=== PATIENT | male | born 1940 | race Caucasian/White ===

== ENCOUNTER → 2016-09-30 | Day surgery (SDC) | payer BC, OTHER ==
[~2016-09-30] VITALS: Ht 177.8 cm; Wt 100.0 kg
[~2016-09-30] MED LIST: ASPI-435; COEN1CAP7; FENTANYL CITRATE INJ 50 MCG/1 ML 2 ML VIAL ONE; GARL400T4; MAGN400T6 PO; MIDAZOLAM HCL 1 MG/ML 2ML VIAL ONE; MULT-506 PO
[2016-09-30 07:23] VITALS: BP 150/88; PULSE 69; TEMP 36.6; O2SAT 97; Ht 177.8 cm; Wt 100.0 kg
--- NOTE | 2016-09-30 09:17 | History & Physical Bridge Note ---
H&P Re-Evaluation Bridge Note: I have examined the patient, reviewed the History & Physical and in the interval since the performance of the History & Physical I have noted the following changes of clinical significance: No changes noted
[2016-09-30 09:23] LABS: ISTAT ARTERIAL BLOOD GAS HCO3 26 meq/L (19-24); ISTAT ARTERIAL BLOOD GAS PCO2 46 mmHg (35-46); ISTAT ARTERIAL BLOOD GAS PO2 34 mmHg (80-95); ISTAT ARTERIAL BLOOD GAS pH 7.36 (7.35-7.45); ISTAT CARBON DIOXIDE 27 mEq/l (24-31)
[2016-09-30 09:23] LABS: ISTAT ARTERIAL BLOOD GAS HCO3 25 meq/L (19-24); ISTAT ARTERIAL BLOOD GAS PCO2 42 mmHg (35-46); ISTAT ARTERIAL BLOOD GAS PO2 76 mmHg (80-95); ISTAT ARTERIAL BLOOD GAS pH 7.37 (7.35-7.45); ISTAT CARBON DIOXIDE 26 mEq/l (24-31)
--- NOTE | 2016-09-30 09:29 | Cardiac Catheterization ---
Procedure Note Procedure Date Sep 30, 2016. Pre-Procedure Diagnosis Valvular Disease AUC Score 9 Post-Procedure Diagnosis Normal Coronary Arteries Procedure(s) Performed Coronary Angiography, Left Heart Cath, Right Heart Cath, LV Angiography, Aortography Business Intelligence Engineer Dr. Auguste Crystal Mounter(s) None Estimated Blood Loss None Medication(s) Versed, Lidocaine 1% Summary of Findings Severe Aortic Stenosis Aortic valve area 0.59-0.78 CM2 Aortic valve index0.27-0.36 CM2/M2 Mean aortic valve gradient 52 mmHg Hemodynamics Rest Ao: 127/67 Final Ao: 129/72 LV: 190/24 RA: 16 RV: 39/15 PA: 35/20 PW: 19 Recommendations valve replacement Specimens None Radiation Exposure (mGy) 548 Contrast (mls) 139 Fluids (cc crystalloids) 150 Procedural Complication(s) None Disposition Jumpbasting Facing Baster Holding/Recovery ACC Data Cardiac Status Clinical evaluation leading to the procedure CAD Presntation: No Sxs, no angina Anginal Classification: No symptoms Heart Failure: No Cardiogenic Shock w/in 24Hrs: No Cardiac Arrest w/in 24Hrs: No Imaging studies past 6 months: Yes Stress studies past 6 months: No Coronary Anatomy Dominant: Right Left Main (% Stenosis): Normal LAD (% Stenosis): Normal Circumflex (% Stenosis): Normal RCA (% Stenosis): Normal Left Ventricular Angiography EF (%): 60 Mitral Regurgitation: None Aortography Aortic Regurgitation: None Diagnostic Physician's Name: Critsopher Auguste, DO Status: Elective Closure Device Percutaneous Entry Location: Femoral Closure Device: Mynx Recommendations: valve replacement
--- NOTE | 2016-09-30 09:30 | Procedure Note ---
Pre-Mod Sedation Assessment General Date of Moderate Sedation: Sep 30, 2016. Start: 8:22 AM Vital Signs: Vital Signs Past 12 Hours Date Time Temp Pulse Resp B/P (MAP) Pulse Ox O2 Delivery O2 Flow Rate FiO2 09/30/16 09:15 66 18 136/79 (98) Mask 09/30/16 09:10 64 18 140/84 (102) Mask 09/30/16 09:05 74 20 145/82 (103) Mask 09/30/16 07:23 36.6 69 18 150/88 97 Room Air Review Cardiovascular: regular rate, rhythm, + systolic murmur Abdomen: normal bowel sounds, non tender, soft Lungs: chest non-tender, lungs clear Airway Class: I Pre-Sedation Airway Assessment Oral Cavity: Dentures Able to Visualize Vocal Cords: No Short Thick Neck: No Hx of Sleep Apnea: Yes Smoking Status: Former Smoker Mallampati Classification: Class I ASA Classification: Class I Procedure Planning Contraindications-for Mod Sed: None Yes Notes The planned sedation has been discussed with the patient and consent obtained. I have identified the patient, determined the appropriateness of sedation and have assessed the patient immediately prior to the procedure. All medicine(s) and interventions are by my order.
--- NOTE | 2016-09-30 09:31 | Procedure Note ---
Post-Mod Sedation Assessment General Date of Moderate Sedation Sep 30, 2016. Finish: 9:05 AM Vital Signs: Vital Signs Past 12 Hours Date Time Temp Pulse Resp B/P (MAP) Pulse Ox O2 Delivery O2 Flow Rate FiO2 09/30/16 09:15 66 18 136/79 (98) Mask 09/30/16 09:10 64 18 140/84 (102) Mask 09/30/16 09:05 74 20 145/82 (103) Mask 09/30/16 07:23 36.6 69 18 150/88 97 Room Air Review - Discharge Criteria Vital Signs Stable: Yes Alert/Oriented/Conversant: Yes Returned to Baseline Mental St: Yes Nausea Absent/Minimal: Yes Pain/Discomfort/Absent/Minimal: Yes Normal/Baseline Respirations: Yes Active Bleeding?: No Pt Received D/C Instructions: Yes Prescriptions Given: None Specific Proced. D/C Criteria Distal Pulses Present (Cardiac: Yes Groin site assessed-Card Cath: Yes Voided Prior To Discharge: Yes Discharged Patients Adult Escort/Transportation: Yes
--- NOTE | 2016-09-30 09:35 | Discharge Instructions ---
Discharge Instructions Procedure Procedure Date: Sep 30, 2016. Reason for Visit: Aortic Stenosis *Dr Auguste To Do*. Discharge Discharge Date: Sep 30, 2016. Discharge Diagnosis: Aortic stenosis Last Recorded Wt (Kilograms): 100 Anesthesia Post Anesthesia Instructions: If you have had General Anesthesia or IV Sedation: * Do not drive today. * Resume driving when surgeon permits. * Do not make important decisions or sign legal documents today. * Call surgeon for: 1. Temperature elevations greater than 101 degrees F. 2. Uncontrollable pain. 3. Excessive bleeding. 4. Persistent nausea and vomiting. 5. Medication intolerance (nausea, vomiting or rash). * For nausea and vomiting use only clear liquids such as: tea, soda, bouillon until nausea subsides, then gradually increase diet as tolerated. * If you have any concerns or questions, call your surgeon's office. If physician is unavailable and it is an emergency, call 911 or go to the nearest emergency room. Instructions Activity Recommendations: limitations Recommended Home Diet: resume previous diet Allergies: Coded Allergies: Olmesartan (Verified Adverse Reaction, Mild, SWEATY & DIZZY, 05/26/13) Provider Instructions ACTIVITY RECOMMENDATIONS: It is common to feel weak and fatigue for a few days. * Do not drive or operate any motorized equipment for the next three days. * Limit stair usage (2 or 3 trips a day only) for the next three days. * Do not lift anything heavier than 10 pounds for the next three days. * Do not engage in vigorous exercise or any sports for the next five days. * You may shower the day after your procedure, but do not immerse the area for three days. Cleanse the site gently with soap and water. SPECIAL CARE INSTRUCTIONS: * You may replace the pressure dressing or band-aid the morning after the procedure. * After your procedure, it is normal to have a small bruise or small lump at the site. Examine your site daily for any change in the bruise or lump, redness, swelling, drainage or numbness. Notify your doctor if any change. BLEEDING: * If there is a small amount of bleeding at the site, lie down and apply firm pressure with a clean cloth for ten minutes. When the bleeding stops, lie quietly keeping the procedure limb straight for six hours. Notify your doctor as soon as possible. * If the bleeding does not stop after ten minutes or if there is a large amount of bleeding or spurting, call 911 immediately. Continue to lie down and hold firm pressure until help arrives. SKIN IRRITATION: * You may experience some redness and/or swelling in the area where radiation was administered. If any skin irritation occurs, please contact your family physician. FOLLOW UP VISIT: Keep any scheduled doctor appointments. Follow Up Follow-up with: Office will call with appointment with Dr. Snyder at [facility] Recommendations: Call your doctor if: * Temperature above 101 degrees * Pain not relieved by pain medicine ordered * There is increased drainage or redness from any incision * You have any unanswered questions or concerns. Your Doctors Instructions noted above were prepared by provider Cristopher Auguste. Patient Signature Section: Patient Instructions Signature Page William Smith Patient (or Guardian) Signature/Date: I have read and understand the instructions given to me by my caregivers. Caregiver/RN/Doctor Signature/Date: The above-named patient and/or guardian has received patient instructions on this date. + Original Patient Signature Page (only) stays with chart. Please make copy for patient.
[2016-09-30 13:00] VITALS: BP 138/74; PULSE 68; O2SAT 98
== END | disposition home or self-care (01) ==
LOC: C.CATH 07:01
PROVIDERS: ATTEND Internal Medicine Interventional Cardiology
DX: I35.0 Nonrheumatic aortic (valve) stenosis (principal); E11.9 Type 2 diabetes mellitus without complications; Z79.82 Long term (current) use of aspirin; Z87.891 Personal history of nicotine dependence

== ENCOUNTER 2018-06-16 05:46 | Inpatient (IN) ==
--- NOTE | 2018-06-09 15:05 | PAT Medication Instructions ---
Medication Instructions Date of Service June 09, 2018 Home Medications aspirin [Aspirin Low Dose] 81 mg PO QAM ibuprofen [Advil] 400 mg PO BID PRN lisinopril 20 mg PO QAM magnesium oxide 400 mg PO DAILY metformin 500 mg PO BI metoprolol tartrate 25 mg PO BID multivitamin 1 tab PO DAILY ASK your surgeon for instructions ibuprofen [Advil] 400 mg PO BID PRN DO NOT take the morning of surgery lisinopril 20 mg PO QAM magnesium oxide 400 mg PO DAILY metformin 500 mg PO BID multivitamin 1 tab PO DAILY Take morning of surgery With a small sip of water, OTHERWISE NOTHING TO EAT OR DRINK AFTER MIDNIGHT: aspirin [Aspirin Low Dose] 81 mg PO QAM metoprolol tartrate 25 mg PO BID Take evening before surgery metformin 500 mg PO BID metoprolol tartrate 25 mg PO BID Other Notes If you have any questions please call us at [phone] or [phone] or [phone] or [phone]
--- NOTE | 2018-06-10 08:56 | Anesthesiology Consultation ---
Date of Service June 10, 2018 Assessment & Plan (1) Encounter for pre-operative examination: Chart Review Chart Review: Acceptable Risk for Surgery and Patient seen in Pre Admission Testing Consults Requested cardiac Note sent from cardiology on 06/08 stating "His echo is acceptable. He has normal systolic function. EF 55-59%. The AVR looks good. Notable findings are moderate LVH and Grade 2 diastolic dysfunction. After surgery he should look to make sure his blood pressure is acceptably controlled; this will likely require a 3rd an tihypertensive agent." This was following his echo. At his visit earlier in the day, he was seen by cardio, who noted " If the patient's resting echocardiogram and pre-admission testing are acceptable I see no overt cardiac contraindications to surgery as planned." Teaching & Discussion Pre-Anesthesia Teaching/Discussion Notes: Instructed NPO after midnight before surgery, except medications with 15 cc of water. Medication instructions provided according to the PAT guidelines. History Surgery Operation Date: 06/22/18 09:35 Proposed Procedures p Haredware Removal L3-S1 (Medicrea), Decompression and Fusion L2-L3 - Dusty Rodriguez DO Height/Weight Height: 5 ft 10 in Weight: 103.6 kg Allergies Allergy/AdvReac Type Severity Reaction Status Date / Time olmesartan AdvReac Mild SWEATY & Verified 05/26/13 10:23 DIZZY Medications Home Medications Medication Instructions Recorded Confirmed Last Taken aspirin [Aspirin Low Dose] 81 mg PO QAM 06/08/18 06/08/18 Unknown ibuprofen [Advil] 400 mg PO BID PRN 06/08/18 06/08/18 Unknown lisinopril 20 mg PO QAM 06/08/18 06/08/18 Unknown magnesium oxide 400 mg PO DAILY 06/08/18 06/08/18 Unknown metformin 500 mg PO BID 06/08/18 06/08/18 Unknown metoprolol tartrate 25 mg PO BID 06/08/18 06/08/18 Unknown multivitamin 1 tab PO DAILY 06/08/18 06/08/18 Unknown Past Medical History Medical History Cardiac murmur H/O Chronic back pain Diabetes mellitus, type 2 NIDDM Hypertension Lumbar herniated disc Osteoarthritis Sleep apnea CURRENTLY NON-COMPLIANT (SINCE SLEEPING UPRIGHT RECENTLY; PRIOR COMPLIANCE WHILE SLEEPING IN BED) Past Family History Family History Brother Family history of diabetes mellitus Sister Family history of diabetes mellitus Father Family history of diabetes mellitus Mother Family history of diabetes mellitus Past Surgical History Surgical History Fusion of spine L3-S1 X2 06/14/13 - MAC #4, ETT #8, Oral, Grade 1 View, * 2 HANDED MASK * History of adenoidectomy History of cardiac cath History of cataract surgery BILATERAL History of colonoscopy History of endoscopic sinus surgery History of esophagogastroduodenoscopy (EGD) History of herniorrhaphy UMBILICAL History of nasal septoplasty History of tonsillectomy S/P AVR (aortic valve replacement) 2016 - [facility] 06/08/18 ECHO - RICKEY 1.2 cm^2, Ao mean 7.6 mmHg Past Anesthesia History No Hx of Anesthesia Complications and No Family Hx of Anesthesia Complications History of PONV No Motion Sickness Screening History of Motion Sickness: No (No, but claustophobic) Social History Smoking Status: Former smoker tobacco type: cigarettes Do You Dip or Chew Tobacco: No Smoking End Date: QUIT 45 YEARS AGO Hx Alcohol Use: Yes Alcohol type: beer alcohol intake frequency: holidays/special occasions only Hx Substance Use: No substance use type: does not use Exercise / Class Metabolic Activity II 4-5 Yardwork/Stairs/Walk up hill (Limited currently due to back pain. 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 Able to climb FOS. Denies CP or SOB. ) Review of Systems Patient denies chest pain, shortness of breath, dyspnea on exertion, reflux, cou gh, wheezing, palpitations. +Joint Pain (Back, Knees) Physical Exam Vital Signs BP: 131/75 P: 66 R: 16 T: 98.2 SPO2: 96% on RA Constitutional + obese ENMT Mouth: + dentures (upper dentures) and + macroglossia Thyromental Distance: > or= 3.5 Finger Breadths (4) Mallampati Class: II Neck normal visual inspection and trachea midline; neck extension not limited Respiratory normal respiratory effort Auscultation: lungs clear to auscultation bilaterally Cardiovascular Rate/Rhythm: regular rate and regular rhythm Heart Sounds: + murmur (2/6) Vessels: no carotid bruit Neurologic moves all extremities Psychiatric Orientation: alert and oriented x 3 Testing Electrocardiogram Date: 06/08/18 Findings: + SB @ (58) When compared with ECG of 10/28/16, Nonspecific T wave abnormality no longer evident in inferior leads Nonspecific T wave abnormality, improved in Lateral leads QT has shortened Chest X-Ray Date: 06/10/18 Findings: + NAD FINDINGS: There are median sternotomy wires. No pneumothorax or pleural effusion is noted. Prosthetic cardiac valve is noted. There is mild cardiomegaly without evidence for pulmonary edema. A moderate-sized hiatal hernia is noted. There is no consolidation. IMPRESSION: 1. No acute cardiopulmonary findings. 2. Mild cardiomegaly without evidence for pulmonary edema. 3. Moderate sized hiatal hernia. Echocardiogram Date: 06/08/18 EF: 55-59% Other Findings: + LVH (moderate concentric) The LV wall thickness is moderately increased (concentric). The left ventricular wall motion is normal. The qualitative LVEF is 55-59% (normal). The left ventricular diastolic function is moderately abnormal (Grade II). There is an aortic valve bioprosthetic present. The aortic valve prosthesis systolic gradients are normal for this type of prosthesis. (RICKEY 1.2 cm^2, Ao mean 7.6 mmHg) Significant aortic valve prosthesis regurgitation is absent. The aortic root diameter is normal. Other Testing CAROTID ARTERY DUPLEX 10/15/16 Right carotid artery duplex examination indicates evidence of less than 50% stenosis of the internal carotid artery. Left carotid artery duplex examination indicates evidence of less than 50% s tenosis of the internal carotid artery. Laboratory Results 06/10/18 09:54 Blood Type A Negative 06/10/18 09:54 Antibody Screen NEGATIVE 06/10/18 09:54 PT 10.8 Seconds (9.0-12.0) 06/10/18 09:54 INR 1.1 (0.9-1.1) 06/10/18 09:54 APTT 26.5 Seconds (21.0-31.0) 06/10/18 09:54 Urine Color Dark Yellow 06/10/18 09:54 Urine Appearance Clear (Clear) 06/10/18 09:54 Urine pH 5.0 (4.5-7.5) 06/10/18 09:54 Ur Specific [place] 1.026 (1.000-1.030) 06/10/18 09:54 Urine Protein Negative (Negative) 06/10/18 09:54 Urine Glucose (UA) Negative (Negative) 06/10/18 09:54 Urine Ketones Trace (Negative) H 06/10/18 09:54 Urine Nitrite Negative (Negative) 06/10/18 09:54 Ur Leukocyte Esterase Negative (Negative) 06/10/18 09:54 [facility] 05/18/18 SODIUM: 139 POTASSIUM: 4.9 CHLORIDE: 97 L CO2: 28 BUN: 30 H CREATININE: 1.1 GLUCOSE: 108 HgBA1C: 7.4 H (Done 04/16/18)
--- NOTE | 2018-06-10 11:00 | XRay Report ---
XR chest Pre-admission PA/Lat CLINICAL HISTORY: Preoperative evaluation. COMPARISON STUDY: Chest radiograph May 26, 2013. FINDINGS: There are median sternotomy wires. No pneumothorax or pleural effusion is noted. Prosthetic cardiac valve is noted. There is mild cardiomegaly without evidence for pulmonary edema. A moderate- sized hiatal hernia is noted. There is no consolidation. IMPRESSION: 1. No acute cardiopulmonary findings. 2. Mild cardiomegaly without evidence for pulmonary edema. 3. Moderate sized hiatal hernia. Electronically signed by: Jamel Enamorado M.D. 06/10/2018 10:58 AM
[2018-06-10 11:17] LABS: Basophils # (auto) 0.02 K/uL (0-0.2); Basophils % (auto) 0.3 %; Eosinophils # (auto) 0.49 K/uL (0-0.5); Eosinophils % (auto) 7.5 %; Hematocrit (blood only) 37.4 % (42-52); Hemoglobin 12.3 g/dL (14.0-18.0); Immature Granulocytes # (auto) 0.02 K/uL (0.00-0.02); Immature Granulocytes % (auto) 0.3 %; Lymphocytes # (auto) 0.73 K/uL (1.2-3.4); Lymphocytes % (auto) 11.1 %; Mean Corpuscular Hgb Conc 32.9 g/dL (32-36); Mean Corpuscular Volume 87.8 fL (80-100); Mean Platelet Volume 10.3 fL (7.4-10.4); Monocytes # (auto) 0.61 K/uL (0.11-0.59); Monocytes % (auto) 9.3 %; Neutrophils # (auto) 4.69 K/uL (1.4-6.5); Neutrophils % (auto) 71.5 %; Platelet Count 244 K/uL (130-400); RDW Coefficient of Variation 14.4 % (11.5-14.5); Red Blood Count 4.26 M/uL (4.7-6.1); White Blood Count 6.56 K/uL (4.8-10.8)
[2018-06-10 11:18] LABS: Appearance Urine Clear (Clear); Bilirubin Urine Negative (Negative); Blood Urine Negative (Negative); Color Urine Dark Yellow; Glucose Urine UA Negative (Negative); Ketones Urine Trace (Negative); Leukocyte Esterase Urine Negative (Negative); Nitrite Urine Negative (Negative); Protein Urine Negative (Negative); Specific Gravity Urine 1.026 (1.000-1.030); Urobilinogen Urine Negative (Negative)
[2018-06-10 11:35] LABS: INR 1.1 (0.9-1.1); Partial Thromboplastin Time 26.5 Seconds (21.0-31.0); Prothrombin Time 10.8 Seconds (9.0-12.0)
[2018-06-16] MEDS ORDERED: CeleBREX 200 MG CAP PO SCH (06:00)
[2018-06-16] MEDS ORDERED: LR 15ML/HR IV SCH (06:00)
[2018-06-16] MEDS ORDERED: GABAPENTIN 300 MG PO SCH (06:00)
[2018-06-16] MEDS ORDERED: CEFAZOLIN 2000MG 2,000 MG/15 ML SYR IV SCH (06:00)
[2018-06-16] MEDS ORDERED: ACETAMINOPHEN 500 MG TAB PO SCH (06:00)
[2018-06-16] MEDS ORDERED: GLYCOPYRROLATE 0.2 MG/ML VIAL ONE (06:44)
[2018-06-16] MEDS ORDERED: NEOSTIGMINE METHYLSULFATE 1 MG/ML 10ML VIAL ONE (06:44)
[2018-06-16] MEDS ORDERED: LIDOCAINE HCL 2% 2 ML VIAL/AMP(20MG/ML) INFIL ONE (06:44)
[2018-06-16] MEDS ORDERED: ROCURONIUM BROMIDE 10 MG/ML 5 ML VIAL ONE ×3 (06:44→09:04)
[2018-06-16] MEDS ORDERED: PROPOFOL IV EMULSION 10 MG/ML 20 ML VIAL IV ONE (06:44)
[2018-06-16] MEDS ORDERED: MIDAZOLAM HCL 1 MG/ML 2ML VIAL ONE (06:44)
[2018-06-16] MEDS ORDERED: ONDANSETRON INJ 2 MG/ML 2 ML VIAL ONE (06:44)
[2018-06-16] MEDS ORDERED: HYDROmorphone INJ 2 MG/ML SYR/VIAL ONE (06:44)
[2018-06-16] MEDS ORDERED: DEXAMETHASONE SOD INJ 4 MG/ML VIAL ONE (06:44)
[2018-06-16] MEDS ORDERED: ACETAMINOPHEN 1000 MG/100 ML IV IV ONE (06:58)
[2018-06-16] MEDS ORDERED: BUPIVACAINE/EPINEPHRINE 0.5% MPF 1:200,000 30 ML VIAL ONE (07:00)
[2018-06-16] MEDS ORDERED: BACITRACIN INJ 50,000 UNIT VIAL ONE (07:01)
[2018-06-16] MEDS ORDERED: LABETALOL HCL IV 5 MG/ML 20ML IV PRN (07:08)
[2018-06-16] MEDS ORDERED: ONDANSETRON INJ 2 MG/ML 2 ML VIAL IV PRN ×2 (07:08→11:55)
[2018-06-16] MEDS ORDERED: ATROPINE SULFATE 0.1 MG/ML 10ML SYR IV PRN (07:08)
--- NOTE | 2018-06-16 07:32 | History & Physical Bridge Note ---
Date of Service June 16, 2018 History & Physical Bridge Note I have examined the patient, reviewed the History & Physical and in the interval since the performance of the History & Physical I have noted the following changes of clinical significance: no changes noted
--- NOTE | 2018-06-16 07:33 | History & Physical Report ---
Date of Service June 16, 2018 Assessment & Plan (1) Spinal stenosis, lumbar region with neurogenic claudication: Hardware removal L3-S1 decompression and fusion L2-3 Present on Admission?: Yes History of Present Illness Chief Complaint: Back and bilateral leg pain Primary Care Provider: Óscar Lloyd DO This is a 78-year-old male who presents with chronic persistent back and bilateral leg pain. After failing extensive course of nonoperative care she is here for surgical intervention. Allergies Allergy/AdvReac Type Severity Reaction Status Date / Time olmesartan AdvReac Mild SWEATY & Verified 06/16/18 05:58 DIZZY Home Medications Home Medications Medication Instructions Recorded Confirmed Type aspirin [Aspirin Low Dose] 81 mg PO QAM 06/08/18 06/16/18 History ibuprofen [Advil] 400 mg PO BID PRN 06/08/18 06/16/18 History lisinopril 20 mg PO QAM 06/08/18 06/16/18 History magnesium oxide 400 mg PO DAILY 06/08/18 06/16/18 History metformin 500 mg PO BID 06/08/18 06/16/18 History metoprolol tartrate 25 mg PO BID 06/08/18 06/16/18 History multivitamin 1 tab PO DAILY 06/08/18 06/16/18 History Past Med/Surg History Social History Preferred Language: Citizen Of [place] Communication Ability: Effective Acid Concentrator Required: No Beliefs That Will Affect Care: None Current Living Situation: Spouse Other Information That Helps Us Care for You: No Feels Safe at Home: Yes Safety Concerns: Feels Safe At This Time Smoking Status: Former smoker Tobacco Type: cigarettes Do You Dip or Chew Tobacco: No Smoking End Date: QUIT 45 YEARS AGO Second Hand Exposure: No Tobacco Cessation Education Requested by Patient: No Hx Alcohol Use: Yes Alcohol type: beer Hx Substance Use: No Physical Exam Vital Signs (Past 24 Hours): Last Vital Signs Temp 36.4 C L 06/16/18 06:04 Pulse 72 06/16/18 06:04 Resp 20 06/16/18 06:04 BP 177/98 H 06/16/18 06:04 Pulse Ox 96 06/16/18 06:04
[2018-06-16] MEDS ORDERED: FLOSEAL HEMOSTATIC MATRIX 10ML TOP ONE (08:46)
--- NOTE | 2018-06-16 10:17 | Fluoroscopy Report ---
FL lumbar spine 2-3V CLINICAL HISTORY: L3-S1 REMOVAL, L2-L3 DECOMPRESSION AND FUSION COMPARISON STUDY: None FLUOROSCOPY TIME: 11 seconds NUMBER OF FLUOROSCOPIC IMAGES: 3 FINDINGS: HISTORY: Hardware removal. L2-L4 laminectomy and fusion. Disc spacer are present at L5-S1, L4-L5, and L2-L3. IMPRESSION: Laminectomy and fusion mid to low lumbar spine. The above report was generated using voice recognition software. It may contain grammatical, syntax or spelling errors. Electronically signed by: Ike Cerda M.D. 06/16/2018 10:16 AM
--- NOTE | 2018-06-16 10:20 | Operative Report ---
Post Operative Report Pre & Post Diagnosis Operation Date: 06/16/18 07:45 Pre-Op Diagnosis: Spinal stenosis, lumbar region with neurogenic claudication Post-Op Diagnosis: Spinal stenosis, lumbar region with neurogenic claudication Procedure Operation Date: 06/16/18 07:45 Actual Procedures #1 removal of posterior segmental instrumentation L3-4 L4-5 L5-S1. #2 expiration of fusion L3-4 L4-5 L5-S1. #3 lumbar decompression with bilateral medial facetectomies foraminotomies L1-L2 3. #4 posterior spinal fusion L2-3. #5 placement posterior segmental instrumentation L2-3 L3-4. #6 interbody fusion L2-3. #7 placement of peek cage 10 x 26 mm L2-3. #8 placement of local autograft in the posterior lateral gutters. #9 placement Feese collagen sponge, mass graft in the posterior lateral gutters and ostial amp and interbody space. Surgeon Dusty Rodriguez, Element Winding Machine Tender None Estimated Blood Loss 300 Findings Consistent with Post-Op Diagnosis Specimens None Indications This is a 78-year-old male well-known to me with severe spinal stenosis L2-3 with herniated nucleus pulposus L2-3. He is failed extensive course of nonoperative care is here for surgical intervention. Description of Procedure Patient was met with preoperatively case discussed all questions addressed.- Patient was taken back to the operative suite. After undergoing general intubation was placed in a prone position Pio table on top of the Ravin frame. All bony prominences well-padded eyes inspected to ensure no external p ressure placed upon but this point the lumbar spine was prepped and draped in normal sterile fashion. Sharp dissection with the assistance of Bovie cautery was performed down to and exposing the lamina and transverse process of L2 and instrumentation at L3-L4-L5 and S1 levels bilaterally. Then proceed remove the hardware bilaterally explore the fusion mass noting to be intact. Then performed a complete laminectomy of L2 partial laminectomy of L1 including bilateral medial facetectomies and foraminotomies to address severe stenosis. Pedicle screws were then placed in L to L3 and L4 bilaterally with assistance of fluoroscopy the process marisela placed. By way of a transforaminal approach and left complete discectomy was performed including removal of all herniated fragments and plates were then curetted to subcortical bleeding bone and a 11 x 26 mm peek cage filled with ostium bone graft tapped into position. The rods were then compressed locked into final position bilaterally. The transverse processes of L2-L3-L4 burred to subcortical bleeding bone. Infuse collagen sponge mass graft local autograft placed in the posterior lateral gutters. 15 round VALENTE drain inserted. Incision was then closed with 1 Vicryl in the fascia 2-0 Vicryl subcutaneous and 4 Monocryl for final closure Steri-Strip sterile dressings placed. Patient will continue to PACU stable disc. I attest to the content of the Intraoperative Record and any orders documented therein. Any exceptions are noted below.
[2018-06-16] MEDS: HYDROmorphone INJ 1 MG/ML SYRINGE IV PRN ×4 (10:45→11:05)
[2018-06-16] MEDS: SODIUM CHLORIDE 0.9% 1000ML 1,000 ML IV SCH ×3 (11:40→23:28)
[2018-06-16] MEDS ORDERED: DO NOT ADMINISTER PNEUMOCOCCAL VACCINE PRN (11:55)
[2018-06-16] MEDS ORDERED: FAMOTIDINE 20 MG TAB PO PRN (11:55)
[2018-06-16] MEDS ORDERED: MAGNESIUM HYDROXIDE SUSP 30 ML UDC PO PRN (11:55)
[2018-06-16] MEDS ORDERED: ALUMINUM/MAGNESIUM SUSP 30 ML UDC PO PRN (11:55)
[2018-06-16] MEDS ORDERED: LORazepam 0.5 MG TAB PO PRN (11:55)
[2018-06-16] MEDS ORDERED: PROMETHAZINE HCL 12.5 MG in SODIUM CHLORIDE 0.9% 50 ML IV PRN (11:55)
[2018-06-16] MEDS ORDERED: METOCLOPRAMIDE HCL INJ 5 MG/ML 2 ML VIAL IV PRN (11:55)
[2018-06-16] MEDS ORDERED: ONDANSETRON 4 MG TAB PO PRN (11:55)
[2018-06-16] MEDS ORDERED: DO NOT ADMINISTER FLU VACCINE PRN (11:55)
[2018-06-16] MEDS ORDERED: HYDROmorphone INJ 0.5 MG/0.5 ML SYR IV PRN (11:55)
[2018-06-16] MEDS ORDERED: BISACODYL 10 MG SUPP PR PRN (11:55)
[2018-06-16] MEDS ORDERED: SOD PHOSPHATE/SOD BIPHOSPHATE ENEMA 132 ML BTL PR PRN (11:55)
[2018-06-16] MEDS ORDERED: LORazepam 0.5 MG/1 ML VIAL IV PRN (11:55)
--- NOTE | 2018-06-16 12:32 | Anesthesiology Progress Note ---
Date of Service June 16, 2018 Anesthesia Post Procedure Vital Signs Vital Signs: Temp Pulse Pulse Pulse Resp BP BP 06/16/18 12:10 68 18 169/94 H 06/16/18 11:40 36.6 C 68 16 177/84 H 06/16/18 11:31 64 11 L 136/68 06/16/18 11:30 61 12 06/16/18 11:26 59 L 7 L 153/90 H 06/16/18 11:25 62 4 L 06/16/18 11:21 60 6 L 130/84 06/16/18 11:20 59 L 5 L 06/16/18 11:16 61 12 132/73 06/16/18 11:15 60 11 L 06/16/18 11:11 58 L 16 163/83 H 06/16/18 11:10 58 L 20 06/16/18 11:07 36.8 C 59 L 19 141/84 H 06/16/18 11:06 58 L 20 141/84 H 06/16/18 11:05 64 16 06/16/18 11:03 60 16 162/76 H 06/16/18 11:00 63 8 L 181/94 H 06/16/18 10:57 61 8 L 146/102 H 06/16/18 10:55 59 L 8 L 06/16/18 10:51 61 19 146/77 H 06/16/18 10:50 62 12 06/16/18 10:46 63 25 H 161/90 H 06/16/18 10:45 65 11 L 06/16/18 10:41 64 19 152/94 H 06/16/18 10:40 59 L 8 L 06/16/18 10:36 64 15 162/91 H 06/16/18 10:35 91 H 25 H 06/16/18 10:31 64 19 153/82 H 06/16/18 10:30 61 15 06/16/18 10:26 65 19 168/91 H 06/16/18 10:25 36.2 C L 72 66 16 168/91 H 06/16/18 06:04 36.4 C L 72 20 177/98 H Pulse Ox 06/16/18 12:10 96 06/16/18 11:40 96 06/16/18 11:31 96 06/16/18 11:30 96 06/16/18 11:26 94 06/16/18 11:25 95 06/16/18 11:21 94 06/16/18 11:20 93 06/16/18 11:16 96 06/16/18 11:15 95 06/16/18 11:11 93 06/16/18 11:10 93 06/16/18 11:07 95 06/16/18 11:06 94 06/16/18 11:05 91 06/16/18 11:03 94 06/16/18 11:00 92 06/16/18 10:57 93 06/16/18 10:55 94 06/16/18 10:51 94 06/16/18 10:50 94 06/16/18 10:46 95 06/16/18 10:45 97 06/16/18 10:41 100 06/16/18 10:40 96 06/16/18 10:36 97 06/16/18 10:35 99 06/16/18 10:31 97 06/16/18 10:30 96 06/16/18 10:26 97 06/16/18 10:25 97 06/16/18 06:04 96 Pain Intensity Back: Pain Intensity: 0 Notes Mental Status: alert / awake / arousable Patient Amnestic to Procedure: Yes Nausea / Vomiting: adequately controlled Pain: adequately controlled Airway Patency, RR, SpO2: stable & adequate BP & HR: stable & adequate Hydration State: stable & adequate Anesthetic Complications: no major complications apparent
[2018-06-16] MEDS ORDERED: GLUCOSE 10 TABS/TUBE PO PRN (12:48)
[2018-06-16] MEDS ORDERED: GLUCAGON FOR INJ 1 MG VIAL SQ PRN (12:48)
[2018-06-16] MEDS ORDERED: DEXTROSE 50% 50 ML SYRINGE IV PRN (12:48)
[2018-06-16] MEDS ORDERED: GLUCOSE 40% GEL 15 GM TUBE PO PRN (12:48)
[2018-06-16] MEDS ORDERED: CARBOHYDRATES FOR HYPOGLYCEMIA PO PRN (12:48)
--- NOTE | 2018-06-16 12:53 | Consultation ---
Date of Consultation June 16, 2018 Assessment & Plan (1) Spinal stenosis, lumbar region with neurogenic claudication: S/P Lumbar decompression Fusion L2-[address] Rodriguez POD #0 EBL 300ml, monitor VALENTE drain output tolerated procedure well Pain/Wound per ortho activity as directed by ortho DVT ppx per ortho monitor cbc for abl anemia (2) Nausea: post operative nausea prn antiemetics (3) Hypertension: blood pressure elevated post operatively monitor continue lisinopril (4) Diabetes mellitus, type 2: A1C 7.4 03/2018 hold metformin lantus/novolog per protocol (5) History of aortic valve replacement: bioprosthetic (6) DVT prophylaxis: SCDS/TEDS per ortho Dispositon: per ortho Follow up: PCP Dr. Lloyd upon discharge Patient was seen and examined in collaboration with Dr. Randolph, please see addendum Starting 06/17/18 patient will be under the care of Dr. Hawley Supervising Physician Co-Signing Physician Notes I have seen and examined the patient and have discussed the case with the provider above. I agree with the assessment and plan as stated with the following exceptions. Pt states that his post-operative nausea has resolved. He was sleeping when I arrived. He denies eating anything yet post-op. He denies any CP, SOB, numbness. He states his pain is "OK." He underwent a redolumbar decompression and fusion by Dr. Rodriguez for lumbar spinal stenosis with neurogenic claudication this morning. Physical exam reveals a WNWD man who is hemodynamically stable and generally well-appearing. Lungs were clear to auscultation bilaterally and he had no respiratory distress. He was notably on 4L oxygen via nasal canula, and is not on home oxygen. He had been weaned during the PACU stay, and I discussed the process with the floor nurse who will continue to wean him now. Oxygen saturation is around 97%-98%. Cardiovascular exam revealed no overt heart murmurs and a reg rhythm with reg rate. Extremities were warm and well perfused and there was no edema. He was oriented to person. As he is a diabetic will continue current plan for insulin as above, holding metformin while hospitalized. Fingersticks ACHS. Per Ortho, ASA has been continued. Metoprolol and lisinopril has been continued perioperatively. DVT prophylaxis includes SCDs until Ortho says OK for chemoprophylaxis. DO Agustín History of Present Illness Requesting Physician: Dr. Rodriguez Reason for Consultation: Postop medical management Attending Physician: Dusty Rodriguez DO History of Present Illness This is a 78-year-old male who has a significant past medical history of [id number] T2DM, HTN, severe aortic stenosis status post bioprosthetic AVR 10/2016, ÁNGEL noncompliant with CPAP, prior history of lumbar surgery who presents to [facility] for elective lumbar procedure by Dr. Rodriguez. Patient has severe spinal stenosis L2-3 with herniated nucleus pulposus L2-3. He has failed conservative management and therefore is here for surgical intervention by Dr. Rodriguez. Postoperatively he is complaining of nausea but no emesis. He denies any fever, chills, sweats, lightheadedness, dizziness, chest pain, palpitations, shortness of breath, cough, abdominal pain. Prior to procedure he denies any change in bowel or urinary habits including melena, hematochezia. and daughter at bedside. Allergies Allergy/AdvReac Type Severity Reaction Status Date / Time olmesartan AdvReac Mild SWEATY & Verified 06/16/18 05:58 DIZZY Home Medications Home Medications Medication Instructions Recorded Confirmed Type aspirin [Aspirin Low Dose] 81 mg PO QAM 06/08/18 06/16/18 History ibuprofen [Advil] 400 mg PO BID PRN 06/08/18 06/16/18 History lisinopril 20 mg PO QAM 06/08/18 06/16/18 History magnesium oxide 400 mg PO DAILY 06/08/18 06/16/18 History metformin 500 mg PO BID 06/08/18 06/16/18 History metoprolol tartrate 25 mg PO BID 06/08/18 06/16/18 History multivitamin 1 tab PO DAILY 06/08/18 06/16/18 History oxycodone 5 mg PO Q4H PRN #30 tab 06/16/18 Rx tramadol 50 mg PO Q4H PRN #30 tab 06/16/18 Rx Patient History Family History Brother Family history of diabetes mellitus Sister Family history of diabetes mellitus Father Family history of diabetes mellitus Mother Family history of diabetes mellitus Social History Preferred Language: Russian Communication Ability: Effective 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 Beliefs That Will Affect Care: None Current Living Situation: Spouse Other Information That Helps Us Care for You: No Feels Safe at Home: Yes Safety Concerns: Feels Safe At This Time Smoking Status: Former smoker Tobacco Type: cigarettes Do You Dip or Chew Tobacco: No Smoking End Date: QUIT 45 YEARS AGO Second Hand Exposure: No Tobacco Cessation Education Requested by Patient: No Hx Alcohol Use: Yes Alcohol type: beer Hx Substance Use: No Review of Systems Review of Systems: All systems reviewed & are unremarkable except as noted in HPI & below Physical Exam Physical Exam: Gen: WD/WN, M, appears stated age, drowsy, NAD, sitting up in bed, answers questions appropriately Head: Normocephalic, Atraumatic Eyes: Sclera normal, no conjunctival injection, PERRLA, EOMI ENT: Gross hearing intact, normal pharynx, mucous membranes moist Neck: supple, no adenopathy, No JVD, no bruit, Resp: Clear to auscultation b/l, no wheeze, rales, rhonchi. Normal insp/exp effort, no accessory muscle use CV: Regular rate, regular rhythm, no murmur, rub, gallop, + ectopy PAC/PVC Abd: Protuberant abdomen, +BS x 4, soft, nontender, nondistended Musculoskeletal: moves extremities active rom x 4, strength intact, good engraver wood strength, lumbar dressing clean dry and intact, VALENTE drain + serosanginous Extremities: No edema bilaterally, SCDs in place Skin: warm, moist, no rash, negative turgor, cap refill < 2sec Neuro: Alert and oriented x 3, speech normal, good mood/affect, cran nerve 2-12 intact grossly : deferred Results & Data Vital Signs (Past 12 Hours) Vital Signs Temp Pulse Pulse Pulse Resp BP BP 06/16/18 12:41 62 18 156/92 H 06/16/18 12:10 68 18 169/94 H 06/16/18 11:40 36.6 C 68 16 177/84 H 06/16/18 11:31 64 11 L 136/68 06/16/18 11:30 61 12 06/16/18 11:26 59 L 7 L 153/90 H 06/16/18 11:25 62 4 L 06/16/18 11:21 60 6 L 130/84 06/16/18 11:20 59 L 5 L 06/16/18 11:16 61 12 132/73 06/16/18 11:15 60 11 L 06/16/18 11:11 58 L 16 163/83 H 06/16/18 11:10 58 L 20 06/16/18 11:07 36.8 C 59 L 19 141/84 H 06/16/18 11:06 58 L 20 141/84 H 06/16/18 11:05 64 16 06/16/18 11:03 60 16 162/76 H 06/16/18 11:00 63 8 L 181/94 H 06/16/18 10:57 61 8 L 146/102 H 06/16/18 10:55 59 L 8 L 06/16/18 10:51 61 19 146/77 H 06/16/18 10:50 62 12 06/16/18 10:46 63 25 H 161/90 H 06/16/18 10:45 65 11 L 06/16/18 10:41 64 19 152/94 H 06/16/18 10:40 59 L 8 L 06/16/18 10:36 64 15 162/91 H 06/16/18 10:35 91 H 25 H 06/16/18 10:31 64 19 153/82 H 06/16/18 10:30 61 15 06/16/18 10:26 65 19 168/91 H 06/16/18 10:25 36.2 C L 72 66 16 168/91 H 06/16/18 06:04 36.4 C L 72 20 177/98 H Pulse Ox 06/16/18 12:41 97 06/16/18 12:10 96 06/16/18 11:40 96 06/16/18 11:31 96 06/16/18 11:30 96 06/16/18 11:26 94 06/16/18 11:25 95 06/16/18 11:21 94 06/16/18 11:20 93 06/16/18 11:16 96 06/16/18 11:15 95 06/16/18 11:11 93 06/16/18 11:10 93 06/16/18 11:07 95 06/16/18 11:06 94 04/24/19 11:05 91 06/16/18 11:03 94 06/16/18 11:00 92 06/16/18 10:57 93 06/16/18 10:55 94 06/16/18 10:51 94 06/16/18 10:50 94 06/16/18 10:46 95 06/16/18 10:45 97 06/16/18 10:41 100 06/16/18 10:40 96 06/16/18 10:36 97 06/16/18 10:35 99 06/16/18 10:31 97 06/16/18 10:30 96 06/16/18 10:26 97 06/16/18 10:25 97 06/16/18 06:04 96 Laboratory Results Preoperative lab work to include hemoglobin 12.3, hematocrit 37.4, platelet 244, INR 1.1 04/16/2018 A1c 7.4 Preoperative echocardiogram revealed EF 55%, bioprosthetic AVR intact, LVH, grade 2 diastolic dysfunction Diagnostic Findings Lumbar Spine Xray: IMPRESSION: Laminectomy and fusion mid to low lumbar spine. CXR: IMPRESSION: 1. No acute cardiopulmonary findings. 2. Mild cardiomegaly without evidence for pulmonary edema. 3. Moderate sized hiatal hernia. Medications Administered Sodium Chloride (Nss 1000ml) 1,000 mls @ 150 mls/hr IV .Q6H40M [facility] Stop: 07/16/18 11:54 Last Admin: 06/16/18 11:40 Dose: 150 mls/hr Documented by: [id number] Discontinued Medications Acetaminophen (Tylenol) 1,000 mg PO PREOP [facility] Stop: 06/16/18 18:00 Last Admin: 06/16/18 06:24 Dose: 1,000 mg Documented by: [id number] Bacitracin (Bacitracin) Confirm Administered Dose 50,000 units .ROUTE .STK-MED ONE Stop: 06/16/18 07:02 Last Admin: 06/16/18 09:51 Dose: 50,000 units Documented by: [id number] Bupivacaine HCl/Epinephrine Bitart (Sensorcaine/Epinephrine 0.5% Mpf 1:200,000) Confirm Administered Dose 30 ml .ROUTE .STK-MED ONE Stop: 06/16/18 07:01 Last Admin: 06/16/18 08:49 Dose: 30 ml Documented by: [id number] Celecoxib (Celebrex) 200 mg PO PREOP [facility] Stop: 06/16/18 18:00 Last Admin: 06/16/18 06:24 Dose: 200 mg Documented by: [id number] Gabapentin (Neurontin) 300 mg PO PREOP [facility] Stop: 06/16/18 18:00 Last Admin: 06/16/18 06:24 Dose: 300 mg Documented by: [id number] Hydromorphone HCl (Dilaudid) 0.25 mg IV Q5M PRN PRN Reason: PACU Use Only-Pain Stop: 06/16/18 12:09 Last Admin: 06/16/18 11:05 Dose: 0.25 mg Documented by: [id number] Admin: 06/16/18 11:00 Dose: 0.25 mg Documented by: [id number] Admin: 06/16/18 10:51 Dose: 0.25 mg Documented by: [id number] Admin: 06/16/18 10:45 Dose: 0.25 mg Documented by: [id number] Lactated Ringer's (Lr) 1,000 mls @ 15 mls/hr IV .Q24H [facility] Stop: 06/17/18 05:59 Last Infusion: 06/16/18 07:41 Dose: 0 mls/hr Documented by: [id number] Admin: 06/16/18 06:15 Dose: 15 mls/hr Documented by: [id number] Cefazolin Sodium (Ancef 2000mg) 2,000 mg in 15 mls @ 3.75 mls/min IV PREOP [facility]; Protocol Stop: 06/16/18 18:00 Last Admin: 06/16/18 07:41 Dose: 3.75 mls/min Documented by: [id number] Miscellaneous (Floseal Hemostatic Matrix 10ml) 10 ml TOP ONCE ONE Stop: 06/16/18 08:47 Last Admin: 06/16/18 09:50 Dose: 28 ml Documented by: [id number]
[2018-06-16] MEDS: KETOROLAC TROMETHAMINE 15 MG/ML VIAL IV SCH ×3 (13:17→23:28)
[2018-06-16] MEDS: CEFAZOLIN 2000MG 2,000 MG/15 ML SYR IV SCH ×2 (15:45→23:26)
[2018-06-16] MEDS ORDERED: ACETAMINOPHEN 1,000 MG/100 ML VIAL IV PRN (16:00)
[2018-06-16] MEDS ORDERED: ACETAMINOPHEN 500 MG TAB PO PRN (16:00)
[2018-06-16] MEDS: INSULIN ASPART 100 UNITS/ML 3 ML PEN SC SCH ×2 (18:44→21:10)
[2018-06-16] MEDS: METOPROLOL TARTRATE 25 MG TAB PO SCH (21:09)
[2018-06-16] MEDS: DOCUSATE SODIUM/SENNA 50/8.6MG TAB PO SCH (21:09)
[2018-06-16] MEDS: INSULIN GLARGINE SOLOSTAR 100 UNITS/ML 3 ML PEN SC SCH (21:10)
[2018-06-17] MEDS: POLYETHYLENE (MIRALAX) 17 GM PACK PO SCH ×4 (05:19→23:49)
[2018-06-17] MEDS: KETOROLAC TROMETHAMINE 15 MG/ML VIAL IV SCH (05:23)
[2018-06-17 06:10] LABS: Basophils # (auto) 0.01 K/uL (0-0.2); Basophils % (auto) 0.1 %; Eosinophils # (auto) 0.01 K/uL (0-0.5); Eosinophils % (auto) 0.1 %; Hematocrit (blood only) 33.1 % (42-52); Immature Granulocytes # (auto) 0.06 K/uL (0.00-0.02); Immature Granulocytes % (auto) 0.4 %; Lymphocytes # (auto) 0.65 K/uL (1.2-3.4); Lymphocytes % (auto) 4.4 %; Mean Corpuscular Hgb Conc 33.2 g/dL (32-36); Mean Corpuscular Volume 87.3 fL (80-100); Mean Platelet Volume 10.4 fL (7.4-10.4); Neutrophils # (auto) 13.27 K/uL (1.4-6.5); Platelet Count 201 K/uL (130-400); RDW Coefficient of Variation 14.6 % (11.5-14.5); Red Blood Count 3.79 M/uL (4.7-6.1)
[2018-06-17 06:46] LABS: BUN Creatinine Ratio 17.4 (10-20); Calcium 8.3 mg/dl (8.5-10.1); Creatinine Clr Calc Pharmacy 75.6 ml/min; Est GFR (African American) 83.4; Est GFR (Non-African American) 71.9; Potassium 4.1 mmol/L (3.5-5.1)
--- NOTE | 2018-06-17 07:53 | Anesthesiology Progress Note ---
Date of Service June 17, 2018 Anesthesia Post Procedure Vital Signs Vital Signs: Temp Pulse Pulse Pulse Pulse Resp BP 06/17/18 06:45 36.8 C 58 L 18 06/17/18 03:46 36.9 C 58 L 14 06/16/18 23:30 36.6 C 67 14 06/16/18 19:16 36.4 C L 72 18 06/16/18 18:04 06/16/18 14:45 36.3 C L 60 18 06/16/18 13:42 63 18 06/16/18 12:41 62 18 06/16/18 12:10 68 18 06/16/18 11:40 36.6 C 68 16 06/16/18 11:31 64 11 L 136/68 06/16/18 11:30 61 12 06/16/18 11:26 59 L 7 L 153/90 H 06/16/18 11:25 62 4 L 06/16/18 11:21 60 6 L 130/84 06/16/18 11:20 59 L 5 L 06/16/18 11:16 61 12 132/73 06/16/18 11:15 60 11 L 06/16/18 11:11 58 L 16 163/83 H 06/16/18 11:10 58 L 20 06/16/18 11:07 36.8 C 59 L 19 06/16/18 11:06 58 L 20 141/84 H 06/16/18 11:05 64 16 06/16/18 11:03 60 16 162/76 H 06/16/18 11:00 63 8 L 181/94 H 06/16/18 10:57 61 8 L 146/102 H 06/16/18 10:55 59 L 8 L 06/16/18 10:51 61 19 146/77 H 06/16/18 10:50 62 12 06/16/18 10:46 63 25 H 161/90 H 06/16/18 10:45 65 11 L 06/16/18 10:41 64 19 152/94 H 06/16/18 10:40 59 L 8 L 06/16/18 10:36 64 15 162/91 H 06/16/18 10:35 91 H 25 H 06/16/18 10:31 64 19 153/82 H 06/16/18 10:30 61 15 06/16/18 10:26 65 19 168/91 H 06/16/18 10:25 36.2 C L 72 66 16 BP BP Pulse Ox 06/17/18 06:45 118/73 94 06/17/18 03:46 135/73 94 06/16/18 23:30 122/71 93 06/16/18 19:16 144/85 H 91 06/16/18 18:04 96 06/16/18 14:45 163/95 H 97 06/16/18 13:42 151/88 H 95 06/16/18 12:41 156/92 H 97 06/16/18 12:10 169/94 H 96 06/16/18 11:40 177/84 H 96 06/16/18 11:31 96 06/16/18 11:30 96 06/16/18 11:26 94 06/16/18 11:25 95 06/16/18 11:21 94 06/16/18 11:20 93 06/16/18 11:16 96 06/16/18 11:15 95 06/16/18 11:11 93 06/16/18 11:10 93 06/16/18 11:07 141/84 H 95 06/16/18 11:06 94 06/16/18 11:05 91 06/16/18 11:03 94 06/16/18 11:00 92 06/16/18 10:57 93 06/16/18 10:55 94 06/16/18 10:51 94 06/16/18 10:50 94 06/16/18 10:46 95 06/16/18 10:45 97 06/16/18 10:41 100 06/16/18 10:40 96 06/16/18 10:36 97 06/16/18 10:35 99 06/16/18 10:31 97 06/16/18 10:30 96 06/16/18 10:26 97 06/16/18 10:25 168/91 H 97 Pain Intensity Back: Pain Intensity: 0 Notes Mental Status: alert / awake / arousable and participated in evaluation Nausea / Vomiting: adequately controlled Pain: adequately controlled Airway Patency, RR, SpO2: stable & adequate BP & HR: stable & adequate Hydration State: stable & adequate
[2018-06-17] MEDS: METOPROLOL TARTRATE 25 MG TAB PO SCH ×2 (08:34→20:43)
[2018-06-17] MEDS: LISINOPRIL 20 MG TAB PO SCH (08:34)
[2018-06-17] MEDS: ASPIRIN 81 MG ECTAB PO SCH (08:35)
[2018-06-17] MEDS: MULTIVITAMIN TAB PO SCH (08:35)
[2018-06-17] MEDS: MAGNESIUM OXIDE 400 MG TAB PO SCH (08:35)
[2018-06-17] MEDS: INSULIN GLARGINE SOLOSTAR 100 UNITS/ML 3 ML PEN SC SCH ×2 (08:37→20:44)
[2018-06-17] MEDS: INSULIN ASPART 100 UNITS/ML 3 ML PEN SC SCH ×4 (08:38→20:45)
--- NOTE | 2018-06-17 09:47 | Hospitalist Progress Note ---
Date of Service June 17, 2018 Assessment & Plan (1) Spinal stenosis, lumbar region with neurogenic claudication: S/P Lumbar decompression Fusion L2-[address] Rodriguez POD #1 EBL 300ml, ERNIE drain output 291 tolerated procedure well Pain/Wound per ortho activity as directed by ortho DVT ppx per ortho monitor cbc for abl anemia (2) Acute blood loss anemia: H/H 11. and 33.1 preop h/h 12.3/37.4 monitor ernie drain output follow cbc (3) Leucocytosis: WBC 14.9k afebrile, no s/sx of infection likely in the setting of post op state monitor (4) Nausea: post operative nausea resolved prn antiemetics (5) Hypertension: blood pressure elevated post operatively monitor continue lisinopril and metoprolol (6) Diabetes mellitus, type 2: A1C 7.4 03/2018 hold metformin lantus/novolog per protocol, will reduce novolog stress, bs controlled 127 (7) History of aortic valve replacement: bioprosthetic (8) DVT prophylaxis: SCDS/TEDS per ortho Dispositon: per ortho Follow up: PCP Dr. Lloyd upon discharge Patient was seen and examined in collaboration with Dr. Hawley, please see addendum Supervising Physician Co-Signing Physician Notes Pt was seen and examined. Agreed with Nicky Zurita exam, assessment and plan. S/P day#1 Lumbar decompression Fusion L2-[address] Rodriguez. Continue incentive spirometry, and pain control. Monitor H/H. PT/NATHANIEL. MD Chandan Subjective Patient was seen and examined in room 312. S/P Lumbar laminectomy and fusion POD #1. He offers no acute concerns. Overall feels well. Denies f/c/s, chest pain, sob, n/v/d. Post op nausea has resolved. Saturating well on room air, denies cough. Pizarro cath still in place. Has not passed flatus yet. Ambulating around room with out difficulty. Denies back pain or radicular symptoms. Review of Systems Review of Systems: As noted per HPI, 10 systems reviewed and negative unless noted above. Physical Exam Physical Exam: Gen: WD/WN, M, sitting in bedside chair, NAD, A&O x3 HEENT: Normocephalic, atraumatic, conjunctivae moist, sclerae anicteric, mucous membranes moist. Lung: Clear to Auscultation bilaterally, no wheezes/rales/rhonchi Heart: Regular rate, regular rhythm, soft 1/6 RHYS noted RUSB, no rubs, or gallops Abdomen: Soft, NT, ND +BS x 4 Extremities: No edema Skin: Warm, no rash, negative turgor. Lumbar dressing CDI, ERNIE drain with serosang drainage + Pizarro with clear yellow urine Results & Data Vital Signs (Past 12 Hours) Vital Signs Temp Pulse Resp BP Pulse Ox 06/17/18 08:41 62 06/17/18 06:45 36.8 C 58 L 18 118/73 94 06/17/18 03:46 36.9 C 58 L 14 135/73 94 06/16/18 23:30 36.6 C 67 14 122/71 93 Laboratory Results Short CBC 06/17/18 Range/Units 05:34 WBC 14.90 H (4.8-10.8) K/uL Hgb 11.0 L (14.0-18.0) g/dL Hct 33.1 L (42-52) % Plt Count 201 (130-400) K/uL BMP 06/17/18 05:34 Sodium 137 Potassium 4.1 Chloride 103 Carbon Dioxide 27 BUN 18 Creatinine 1.01 Glucose 121 H Calcium 8.3 L Medications Administered Aspirin (Ecotrin Ectab) 81 mg PO QAM [facility] Stop: 07/17/18 08:59 Last Admin: 06/17/18 08:35 Dose: 81 mg Documented by: [id number] Insulin Aspart (Novolog Flexpen) 0 units SC ACHS [facility] Stop: 07/16/18 16:29 Last Admin: 06/17/18 08:38 Dose: 5 units Documented by: [id number] Cosigned by: [id number] Admin: 06/16/18 21:10 Dose: 7 units Documented by: [id number] Cosigned by: [id number] Admin: 06/16/18 18:44 Dose: 7 units Documented by: [id number] Cosigned by: [id number] Insulin Glargine (Lantus Solostar Pen) 0 units SC BID [facility]; Protocol Stop: 07/16/18 20:59 Last Admin: 06/17/18 08:37 Dose: 5 units Documented by: [id number] Cosigned by: [id number] Admin: 04/24/19 21:10 Dose: 10 units Documented by: [id number] Cosigned by: [id number] Lisinopril (Zestril) 20 mg PO QAM [facility] Stop: 07/17/18 08:59 Last Admin: 06/17/18 08:34 Dose: 20 mg Documented by: [id number] Magnesium Oxide (Mag-Ox) 400 mg PO DAILY [facility] Stop: 07/17/18 08:59 Last Admin: 06/17/18 08:35 Dose: 400 mg Documented by: [id number] Metoprolol Tartrate (Lopressor) 25 mg PO BID [facility] Stop: 07/16/18 20:59 Last Admin: 06/17/18 08:34 Dose: 25 mg Documented by: [id number] Admin: 06/16/18 21:09 Dose: 25 mg Documented by: [id number] Multivitamins (Multivitamin Tab) 1 tab PO DAILY [facility] Stop: 07/17/18 08:59 Last Admin: 06/17/18 08:35 Dose: 1 tab Documented by: [id number] Polyethylene Glycol (Miralax Powder Packet) 17 gm PO Q6 [facility] Stop: 07/17/18 05:59 Last Admin: 06/17/18 05:19 Dose: Not Given Documented by: [id number] Senna/Docusate Sodium (Senokot S) 2 tab PO HS [facility] Stop: 07/16/18 20:59 Last Admin: 06/16/18 21:09 Dose: 2 tab Documented by: [id number] Discontinued Medications Acetaminophen (Tylenol) 1,000 mg PO PREOP [facility] Stop: 06/16/18 18:00 Last Admin: 06/16/18 06:24 Dose: 1,000 mg Documented by: [id number] Bacitracin (Bacitracin) Confirm Administered Dose 50,000 units .ROUTE .STK-MED ONE Stop: 06/16/18 07:02 Last Admin: 06/16/18 09:51 Dose: 50,000 units Documented by: [id number] Bupivacaine HCl/Epinephrine Bitart (Sensorcaine/Epinephrine 0.5% Mpf 1:200,000) Confirm Administered Dose 30 ml .ROUTE .STK-MED ONE Stop: 06/16/18 07:01 Last Admin: 06/16/18 08:49 Dose: 30 ml Documented by: [id number] Celecoxib (Celebrex) 200 mg PO PREOP [facility] Stop: 06/16/18 18:00 Last Admin: 06/16/18 06:24 Dose: 200 mg Documented by: [id number] Gabapentin (Neurontin) 300 mg PO PREOP [facility] Stop: 06/16/18 18:00 Last Admin: 06/16/18 06:24 Dose: 300 mg Documented by: [id number] Hydromorphone HCl (Dilaudid) 0.25 mg IV Q5M PRN PRN Reason: PACU Use Only-Pain Stop: 06/16/18 12:09 Last Admin: 06/16/18 11:05 Dose: 0.25 mg Documented by: [id number] Admin: 06/16/18 11:00 Dose: 0.25 mg Documented by: [id number] Admin: 06/16/18 10:51 Dose: 0.25 mg Documented by: [id number] Admin: 06/16/18 10:45 Dose: 0.25 mg Documented by: [id number] Lactated Ringer's (Lr) 1,000 mls @ 15 mls/hr IV .Q24H [facility] Stop: 06/17/18 05:59 Last Infusion: 06/16/18 07:41 Dose: 0 mls/hr Documented by: [id number] Admin: 06/16/18 06:15 Dose: 15 mls/hr Documented by: [id number] Cefazolin Sodium (Ancef 2000mg) 2,000 mg in 15 mls @ 3.75 mls/min IV PREOP [facility]; Protocol Stop: 06/16/18 18:00 Last Admin: 06/16/18 07:41 Dose: 3.75 mls/min Documented by: [id number] Cefazolin Sodium (Ancef 2000mg) 2,000 mg in 15 mls @ 3.75 mls/min IV Q8H [facility]; Protocol Stop: 06/17/18 00:03 Last Admin: 06/16/18 23:26 Dose: 3.75 mls/min Documented by: [id number] Admin: 06/16/18 15:45 Dose: 3.75 mls/min Documented by: [id number] Sodium Chloride (Nss 1000ml) 1,000 mls @ 150 mls/hr IV .Q6H40M [facility] Stop: 07/16/18 11:54 Last Infusion: 06/17/18 05:19 Dose: 0 mls/hr Documented by: [id number] Admin: 06/16/18 23:28 Dose: 150 mls/hr Documented by: [id number] Infusion: 06/16/18 23:28 Dose: 150 mls/hr Documented by: [id number] Infusion: 06/16/18 22:07 Dose: 150 mls/hr Documented by: [id number] Admin: 06/16/18 18:10 Dose: 150 mls/hr Documented by: [id number] Infusion: 06/16/18 18:10 Dose: 150 mls/hr Documented by: [id number] Admin: 06/16/18 11:40 Dose: 150 mls/hr Documented by: [id number] Ketorolac Tromethamine (Toradol) 15 mg IV Q6H [facility] Stop: 06/17/18 06:01 Last Admin: 06/17/18 05:23 Dose: 15 mg Documented by: [id number] Admin: 06/16/18 23:28 Dose: 15 mg Documented by: [id number] Admin: 06/16/18 18:10 Dose: 15 mg Documented by: [id number] Admin: 06/16/18 13:17 Dose: 15 mg Documented by: [id number] Miscellaneous (Floseal Hemostatic Matrix 10ml) 10 ml TOP ONCE ONE Stop: 06/16/18 08:47 Last Admin: 06/16/18 09:50 Dose: 28 ml Documented by: [id number] ECG Rate (beats per minute): 58 Rhythm: sinus bradycardia Findings: + PVC
--- NOTE | 2018-06-17 11:47 | Orthopedic Progress Note ---
Date of Service June 17, 2018 Assessment & Plan (1) Spinal stenosis, lumbar region with neurogenic claudication: This time we will continue physical therapy monitor his VALENTE output anticipate discharge home this weekend. Present on Admission?: Yes Subjective Back pain is controlled leg symptoms markedly improved. Physical Exam Physical Exam: On exam patient is in the chair at the bedside. Is good strength testing. Appears comfortable. Results & Data Vital Signs (Past 12 Hours) Vital Signs Temp Pulse Resp BP Pulse Ox 06/17/18 11:11 36.6 C 67 18 148/74 H 94 06/17/18 08:41 62 06/17/18 06:45 36.8 C 58 L 18 118/73 94 06/17/18 03:46 36.9 C 58 L 14 135/73 94
[2018-06-17] MEDS: TRAMADOL HCL 50 MG TABLET PO PRN ×2 (19:00→23:06)
[2018-06-17] MEDS: DOCUSATE SODIUM/SENNA 50/8.6MG TAB PO SCH (20:44)
[2018-06-18] MEDS: TRAMADOL HCL 50 MG TABLET PO PRN (04:06)
[2018-06-18 06:23] LABS: Hematocrit (blood only) 32.2 % (42-52); Hemoglobin 10.9 g/dL (14.0-18.0); Mean Corpuscular Hgb Conc 33.9 g/dL (32-36); Mean Corpuscular Volume 87.3 fL (80-100); Mean Platelet Volume 10.8 fL (7.4-10.4); Platelet Count 193 K/uL (130-400); RDW Coefficient of Variation 14.9 % (11.5-14.5); RDW Standard Deviation 47.3 fL (36.4-46.3); Red Blood Count 3.69 M/uL (4.7-6.1); White Blood Count 10.29 K/uL (4.8-10.8)
[2018-06-18] MEDS: POLYETHYLENE (MIRALAX) 17 GM PACK PO SCH ×3 (06:31→18:25)
[2018-06-18] MEDS: OXYCODONE HCL IR 5 MG TAB (IMMEDIATE RELEASE) PO PRN ×3 (08:00→21:07)
[2018-06-18] MEDS: LISINOPRIL 20 MG TAB PO SCH (08:00)
[2018-06-18] MEDS: MAGNESIUM OXIDE 400 MG TAB PO SCH (08:00)
[2018-06-18] MEDS: ASPIRIN 81 MG ECTAB PO SCH (08:00)
[2018-06-18] MEDS: MULTIVITAMIN TAB PO SCH (08:00)
[2018-06-18] MEDS: METOPROLOL TARTRATE 25 MG TAB PO SCH ×2 (08:00→20:59)
[2018-06-18] MEDS: INSULIN GLARGINE SOLOSTAR 100 UNITS/ML 3 ML PEN SC SCH ×2 (08:04→20:58)
[2018-06-18] MEDS: INSULIN ASPART 100 UNITS/ML 3 ML PEN SC SCH ×4 (08:05→20:57)
--- NOTE | 2018-06-18 10:27 | Hospitalist Progress Note ---
Date of Service June 18, 2018 Assessment & Plan (1) Spinal stenosis, lumbar region with neurogenic claudication: Post op day#2 S/P Lumbar decompression Fusion L2-[address] Rodriguez EBL 300ml, VALENTE drain output Pt reports pain controlled -pain management per ortho -wound management per ortho -PT/OT as appropriate -DVT prophylaxis per ortho -incentive spirometry (2) Acute blood loss anemia: Stable. Hgb: 10.9, was 11 yesterday. Preop Hgb: 12.3. (3) Leucocytosis: Resolved. WBC:10, from 14.9 yesterday. Likely post op afebrile, no signs/symptoms of infection (4) Nausea: Pt initially had post operative nausea which has resolved Pt eating and drinking without difficulty (5) Hypertension: Stable -Monitor BP -Continue lisinopril and metoprolol (6) Diabetes mellitus, type 2: A1C 7.4 03/2018 -Hold metformin while in hospital -Lantus/Novolog per protocol (7) History of aortic valve replacement: Hx Bioprosthetic valve (8) DVT prophylaxis: SCDS/TEDS per ortho Disposition: per ortho Follow up: PCP Dr. Lloyd upon discharge Patient was seen and examined in collaboration with Dr. Hawley, please see addendum Supervising Physician Co-Signing Physician Notes Pt was seen and examined. Agreed with Nicky Zurita exam, assessment and plan. S/P day#2 Lumbar decompression Fusion L2-[address] Rodriguez. Continue incentive spirometry, and pain control. Monitor H/H. PT/OT. MD Chandan Subjective F/U Lumbar laminectomy and fusion. POD #2. Pt seen and examined. Is sitting in bedside chair. Reports pain controlled, having some back pain with movement. Reports has been ambulating in hallway. Denies LE weakness or paresthesias. Has been eating and drinking well. Denies any nausea or vomiting. Is urinating without difficulty. Passing flatus, denies BM yet since surgery. Denies fever/chills, GOTEZ, dizziness, CP, SOB, abdominal pain, extremity edema. Review of Systems Review of Systems: All systems reviewed & are unremarkable except as noted in HPI & below Physical Exam Physical Exam: General: no distress, WDWN Head: normocephalic, atraumatic Eyes: conjunctiva non-injected, anicteric ENT: normal inspection external ears, nose, mucous membranes moist Neck: supple, trachea midline Lungs: clear, no respiratory distress, no wheezing/rhonchi/rales CV: RRR, trace pretibial edema Abd: normal BS, soft, non-tender Back: surgical dressing in place is dry, VALENTE drain intact with serosanguinous drainage Ext: no cyanosis, no calf tenderness, bilateral leg flexion and extension intact, distal pulses intact, sensation to light touch Neuro: A&O x 3, no focal deficits noted, normal affect Skin: warm, dry Results & Data Vital Signs (Past 12 Hours) Vital Signs Temp Pulse Pulse Resp BP BP Pulse Ox 06/18/18 06:40 36.5 C 82 14 143/81 H 06/17/18 23:53 37.2 C 69 14 143/72 H 94 Laboratory Results Short CBC 06/18/18 Range/Units 05:39 WBC 10.29 (4.8-10.8) K/uL Hgb 10.9 L (14.0-18.0) g/dL Hct 32.2 L (42-52) % Plt Count 193 (130-400) K/uL
--- NOTE | 2018-06-18 14:46 | Orthopedic Progress Note ---
Date of Service June 18, 2018 Assessment & Plan (1) Lumbar herniated disc: This time we will continue to monitor his VALENTE output continue with therapy as tolerated. Most likely discharge home tomorrow. Subjective Patient's back pain is controlled leg symptoms markedly improved. Physical Exam Physical Exam: On exam he is in the chair at bedside. Is good strength testing. Appears comfortable. Results & Data Vital Signs (Past 12 Hours) Vital Signs Temp Pulse Pulse Resp BP Pulse Ox 06/18/18 12:00 36.9 C 61 14 144/82 H 94 06/18/18 06:40 36.5 C 82 14 143/81 H
[2018-06-18] MEDS: DOCUSATE SODIUM/SENNA 50/8.6MG TAB PO SCH (20:59)
[2018-06-19] MEDS: POLYETHYLENE (MIRALAX) 17 GM PACK PO SCH ×2 (00:55→05:54)
[2018-06-19] MEDS: OXYCODONE HCL IR 5 MG TAB (IMMEDIATE RELEASE) PO PRN ×2 (05:53→11:47)
[2018-06-19] MEDS: LISINOPRIL 20 MG TAB PO SCH (08:55)
[2018-06-19] MEDS: MULTIVITAMIN TAB PO SCH (08:55)
[2018-06-19] MEDS: METOPROLOL TARTRATE 25 MG TAB PO SCH (08:55)
[2018-06-19] MEDS: ASPIRIN 81 MG ECTAB PO SCH (08:56)
[2018-06-19] MEDS: INSULIN GLARGINE SOLOSTAR 100 UNITS/ML 3 ML PEN SC SCH (08:56)
[2018-06-19] MEDS: MAGNESIUM OXIDE 400 MG TAB PO SCH (08:56)
[2018-06-19] MEDS: INSULIN ASPART 100 UNITS/ML 3 ML PEN SC SCH (08:59)
--- NOTE | 2018-06-19 09:22 | Discharge Summary ---
Date of Service June 19, 2018 Admission HPI Per Admitting Provider This is a 78-year-old male who presents with chronic persistent back and bilateral leg pain. After failing extensive course of nonoperative care she is here for surgical intervention. Principal Diagnosis Lumbar spinal stenosis with neurogenic claudication Discharge Data Allergies Allergy/AdvReac Type Severity Reaction Status Date / Time olmesartan AdvReac Mild SWEATY & Verified 06/16/18 05:58 DIZZY Consultations 06/16/18 11:55 Consult Case Management - Discharge Planning Routine Consult Hospitalist Routine Procedures Performed Operation Date: 06/16/18 07:45 Actual Procedures s L3-L4, L4-L5, L5-S1 Hardware Removal(Not Applicable) - Dusty Rodriguez DO p L2-L3 Decompression and Fusion, L3-L4, L4-L5, L5-S1 Reinstrumentation; Interbody Cage Insertion at L2-L3, Interbody fusion L2-L3; Application of OsteoAMP, and Bone morphagenetic protein(Not Applicable) - Dusty Rodriguez DO Ordered Studies 06/16/18 07:45 FL fluoroscopy <1hr Routine FL lumbar spine 2-3V Routine Hospital Course (1) Spinal stenosis, lumbar region with neurogenic claudication: Patient with lumbar decompression fusion tolerated this well was taken to orthopedic for postoperative. Postop day 1 he was up in a.m. leading nicely. He progressed the postop day #2. VALENTE drain decreasing appropriately. Subsequently discharged home. Discharge orders and instructions found chart for further review. Total Time Total Time Spent Total Time Spent (In Minutes): 20 minutes Discharge Plan Discharge Items Patient Disposition: Home - Self-Care Reason For Visit: Other Intervertebral Disc Displacement, Lumbar Reg Discharge Diagnosis: Lumbar spinal stenosis with neurogenic claudication Discharge Goals: Decrease discomfort Activity: Per 'Additional Instructions' section Non-emergency contact: Primary Care Provider Call non-emergency contact if: you have any medication questions Follow-up/Referrals: Óscar Lloyd DO [Primary Care Provider] - Diet: Regular Addtl Provider Instructions: ACTIVITY RECOMMENDATIONS: SELF CARE INSTRUCTIONS AFTER THORACIC/LUMBAR FUSIONS 1. You may walk to your tolerance. It is good exercise for your legs and back. Expect some back and intermittent leg aches and pains. 2. You may perform "counter-top" level activities (make a sandwich, canelo with a project, etc.). 3. No bending or lifting of more than 10 pounds or back twisting of any nature (roll like a log when turning in bed). 4. You may ride in a car for 20-30 minutes at a time. No driving until after your first visit with your doctor. 5. Frequent changes of position and restricting sitting to 30 minutes at a time will help limit the amount of back spasms and stiffness you may experience. 6. You may discontinue the use of ambulatory aids (cane, crutches, etc.) once your strength and confidence allow. 7. You may lead project engineer the shower and let water strike your incision when you arrive home at least once daily. Do not take a tub bath, sit in a hot tub or go into a swimming pool until after your first recheck in the office. SPECIAL CARE INSTRUCTIONS: VERY IMPORTANT TO READ AND REVIEW A. Your surgical incision has been closed with a cosmetic suture under the skin that will dissolve in about 6 weeks. In 14 days, you can use a pair of clean scissors and cut the suture that is left outside of the skin at the ends of your incision. 1. The small skin tapes can be removed 7 days after surgery if they have not fallen off by that point. 2. You may keep the wound open to air as much as possible to promote healing after post-op day number 5 unless told otherwise by your doctor. 3. If you think the wound looks like it is becoming infected (redness or worsening drainage) and/or you are experiencing fever, chill or worsening back pain and muscle spasms, contact the office so that we may evaluate you as soon as possible. B. Complications are uncommon, but please contact us if you have any signs or symptoms of: 1. wound infection (fever higher than 102.5 degrees F, redness, separation of wound, drainage, or increasing pain from the incision) 2. blood clots in legs (pain, swelling, redness and warmth in legs) 3. urinary tract infection (fever higher than 102.5 degrees F, burning upon urination or increased frequency of urination) 4. nerve problems (inability to walk on your toes or heels, numbness, loss of bowel or bladder control) 5. any other symptoms that concern you C. Please call the office at if you have any concerns or questions about your operation or recovery. D. No smoking! Smoking drastically decreases the chance of a solid fusion. E. Do not take any anti-inflammatory medications (Indocin, Advil, Motrin, Aspirin, Naprosyn, etc.) as these may inhibit the chance of a solid fusion. Tylenol is okay to take for pain. MANAGING PAIN AFTER SPINAL SURGERY 1. Narcotic medication is intended for short-term use and will be provided for surgical pain. Surgical pain usually lasts for a period of 4-6 weeks. Narcotic medication includes Percocet, Vicodin, Darvocet, Tylenol #3 or Lortab. 2. Longer-term pain is more appropriately treated with non-narcotic medication such as Tylenol ES. 3. Muscle spasm is not appropriately treated with narcotics. Muscle relaxers such as Soma, Flexeril or Skelaxin can be used along with Tylenol ES. 4. Remember that we all live with some "aches and pains". This is not unusual or uncommon after an injury or as we get older. a. Back pain is expected and may include muscle spasms for 4 to 6 weeks after surgery. The pain should gradually improve. If the pain worsens for no apparent reason, please contact the office. b. Intermittent leg pain may also be experienced and should not be concerned about unless it worsens for no apparent reason. If so, please contact the office. 5. We will provide appropriate medication within the normal guidelines of their prescribed use. We will also be very cautious and aware of potential abuse and extended duration of patients' medication needs. a. Pain medications are for your comfort and to assist with sleep and rest so that the tissue can heal. They are not provided in order to return to normal activity and should not be used through the day. To do so or worsening pain at night can result from ongoing tissue damage and development of tolerance to the prescribed medicine. 6. Please allow 2-3 days to process refills. Prescriptions will not be mailed but must be picked up at the office. FOLLOW UP VISIT: Keep your scheduled follow-up appointment. Any questions, please call the office at . Prescriptions: New tramadol 50 mg Tablet 50 mg PO Q4H PRN (Reason: Pain, Moderate) Qty: 30 RF: 0 oxycodone 5 mg Tablet 5 mg PO Q4H PRN (Reason: Pain, Severe) Qty: 30 RF: 0 Continued multivitamin Tablet 1 tab PO DAILY RF: 0 metformin 500 mg Tablet 500 mg PO BID RF: 0 lisinopril 20 mg Tablet 20 mg PO QAM RF: 0 aspirin [Aspirin Low Dose] 81 mg Tablet,Delayed Release (Dr/Ec) 81 mg PO QAM RF: 0 metoprolol tartrate 25 mg Tablet 25 mg PO BID RF: 0 magnesium oxide 400 mg Capsule 400 mg PO DAILY RF: 0 ibuprofen [Advil] 200 mg Tablet 400 mg PO BID PRN (Reason: Pain) RF: 0 Stand-Alone Forms: [facility]/Other Patient Handouts: Hypoglycemia Discharge Orders: Discharge Order (Routine); Ordered 06/19/18 Ordered By: Dusty Rodriguez Admission Data Admit Date/Time: 06/16/18 11:48 Attending Provider: Dusty Rodriguez Admit Provider: Dusty Rodriguez Primary Care Provider: Óscar Llyod Other Providers: Ike Howe Wilkerson Service: Surgical Services
== END 2018-06-19 12:24 | disposition home or self-care (01) | DRG 454 ==
LOC: ASU 05:46 → 3E 11:48
DX: Z95.2 Presence of prosthetic heart valve; M48.062 Spinal stenosis, lumbar region with neurogenic claudication; Z91.19 Patient's noncompliance with other medical treatment and regimen; D62 Acute posthemorrhagic anemia; I10 Essential (primary) hypertension; Z87.891 Personal history of nicotine dependence; Z98.1 Arthrodesis status; Z79.82 Long term (current) use of aspirin; Z88.8 Allergy status to other drugs, medicaments and biological substances; Z79.899 Other long term (current) drug therapy; E11.9 Type 2 diabetes mellitus without complications; M51.26 Other intervertebral disc displacement, lumbar region; G47.33 Obstructive sleep apnea (adult) (pediatric); Z79.84 Long term (current) use of oral hypoglycemic drugs; D72.829 Elevated white blood cell count, unspecified; R11.0 Nausea

== ENCOUNTER 2023-06-11 14:42 | Inpatient (IN) ==
[2023-06-11 15:57] LABS: Basophils # (auto) 0.03 K/uL (0.00-0.20); Basophils % (auto) 0.3 %; Eosinophils # (auto) 0.35 K/uL (0.00-0.50); Eosinophils % (auto) 3.7 %; Hematocrit (blood only) 37.7 % (42.0-52.0); Hemoglobin 12.4 g/dl (14.0-18.0); Immature Granulocytes # (auto) 0.02 K/uL (0.01-0.20); Immature Granulocytes % (auto) 0.2 %; Lymphocytes % (auto) 5.3 %; Mean Corpuscular Hemoglobin 27.8 pg (25.0-34.0); Mean Corpuscular Hgb Conc 32.9 g/dL (32.0-36.0); Mean Corpuscular Volume 84.5 fL (80.0-100.0); Mean Platelet Volume 11.1 fL (9.4-12.4); Monocytes # (auto) 0.75 K/uL (0.11-0.59); Monocytes % (auto) 7.9 %; Neutrophils # (auto) 7.81 K/uL (1.40-6.50); Neutrophils % (auto) 82.6 %; Platelet Count 181 K/uL (130-400); RDW Coefficient of Variation 15.9 % (11.5-14.5); RDW Standard Deviation 48.8 fL (36.4-46.3); Red Blood Count 4.46 M/uL (4.70-6.10); White Blood Count 9.46 K/ul (4.8-10.8)
--- NOTE | 2023-06-11 16:09 | XRay Report ---
SINGLE VIEW CHEST CLINICAL HISTORY: Atypical chest pain FINDINGS: An AP, portable, upright chest radiograph is compared to study dated 06/10/2018. The patient is status post midline sternotomy. The heart is enlarged. There is pulmonary vascular congestion. Ch ronic interstitial thickening is similar to previous. There is bibasilar scarring/atelectasis. No air space consolidation or large pleural effusion is identified. No pneumothorax is seen. The skeletal st ructures are osteopenic. The bony thorax is grossly intact. IMPRESSION: Cardiomegaly with mild pulmonary vascular congestion. ACT 112: Negative or not required by law. Electronically signed by: Perry Minor M.D. 06/11/2023 4:08 PM
[2023-06-11 16:14] LABS: Albumin Globulin Ratio 1.6 (0.9-2); Albumin Level 4.5 gm/dl (3.4-5.0); BUN Creatinine Ratio 21.7 (10-20); Bilirubin,Total 0.8 mg/dl (0.2-1.0); Calcium 9.5 mg/dl (8.6-10.3); Creatinine Clr Calc Pharmacy 72.1 ml/min; Est GFR (African American) 95.6 ml/min; Est GFR (Non-African American) 82.5 ml/min; Globulin 2.9 gm/dl (2.5-4.0); Potassium 3.9 mmol/L (3.5-5.1); Total Protein 7.4 gm/dl (6.0-8.3)
[2023-06-11 16:31] LABS: Magnesium 1.7 mg/dl (1.7-2.4)
--- NOTE | 2023-06-11 16:32 | Emergency Department Note ---
Impression & Plan Hypoxia, Atrial fibrillation with rapid ventricular response, CHF (congestive heart failure), SOB (shortness of breath) ED Provider Note NAME: JAMAL PRETTY Jr AGE: 83 SEX: M : 1940 ARRIVES VIA: Walk-In INFORMANT: [Patient][] ED PROVIDER(S): [Perry Guzman MD] CHIEF COMPLAINT: Tachycardia HISTORY OF PRESENT ILLNESS: The patient is an 83-year-old male with a history of A-fib. He is on metoprolol and Eliquis. He recently had his lisinopril increased to 40 mg. He started hydrochlorothiazide for the first time yesterday. He did not take today's dose as he had some appointments. In addition, the patient had been on metoprolol tartrate 25 mg twice a day. Today, he took his first dose of 75 mg of metoprolol succinate. The patient states that he started with a cough 3 days ago. This started after a nuclear stress test and echo was performed. He wonders if the testing had anything to do with how he is feeling. He does not the results of his stress test or echo. The patient went to his doctor's office today, he complained of a productive yellow cough. He was short of breath and may have had a low-grade fever. There, his heart rate was quick, his O2 saturation was in the 80s. He was sent to the hospital for evaluation. PMHx/PSHx/Social Hx: See Below PHYSICAL EXAM: GENERAL: Patient is in no acute distress. HEENT: No acute trauma, normocephalic atraumatic, mucous membranes moist, no nasal congestion. NECK: No stridor, no adenopathy, no meningismus, trachea is midline. LUNGS: Occasional crackles, breath sounds somewhat diminished bilaterally, no respiratory distress. HEART: Subtle systolic murmur, irregular rhythm, mildly tachycardic ABDOMEN: Soft, nontender, no peritonitis. EXTREMITIES: No cyanosis, full range of motion of all the joints without pain or difficulty. Mild bilateral pedal edema. NEUROLOGIC: Oriented x 3, no acute motor or sensory deficits, no focal weakness. SKIN: No jaundice, no diaphoresis. DIFFERENTIAL DIAGNOSIS: Bronchitis or pneumonia, CHF, cardiac ischemia, dysrhythmia, electrolyte imbalance, anemia, among others. EMERGENCY DEPARTMENT PROCEDURES: MEDICAL DECISION MAKING: There is no leukocytosis. A mild anemia was seen, the patient does have a history of anemia looking back at previous testing. There was a normal platelet count. INR slightly high at 1.2, likely from his Eliquis use. There was no renal failure. No concerning electrolyte abnormality. No worrisome liver enzyme elevation. ECG showed what appears to be in atrial fibrillation/atrial flutter. No acute ischemic change. Cardiac enzyme testing x 1 was slightly elevated. This troponin elevation could be secondary to the rapid heart rate or potentially cardiac injury. BNP was elevated consistent with CHF and fluid overload. Chest x-ray does show some CHF. On exam, the patient was tachycardic. Some pedal edema was seen. He was not noted to be hypoxic prior to arrival. He was placed on nasal cannula oxygen. Patient received 12.5 mg of oral metoprolol tartrate. He was given 5 mg of IV Lopressor. He received 20 mg of IV Lasix. The patient is in need of a hospital stay. He is in a rapid A-fib. He appears to be in heart failure. He was noted to be hypoxic prior to his arrival. I spoke with the patient and case management, the on-call hospitalist was consulted. Prior/Outside records/notes reviewed: None ECG per my interpretation: Indication was tachycardia. The ECG shows tachycardia. The rate was 129. There was a right bundle branch block. I suspect atrial flutter given the patient's history and the rate itself. There is no acute ST elevation, no PVCs. The QTc is 509 Continuous Cardiac Monitoring per my interpretation: An order was placed for continuous cardiac monitoring. The monitor shows a rate of 118 with atrial fibrillation. Imaging/x-ray results per my interpretation: Chest x-ray shows some cardiomegaly and what appears to be CHF. There is no focal pneumonia or pneumothorax. Chronic Medical/Social conditions affecting care: Advanced age. Care/Management discussed with: Case management, the on-call hospitalist. Level of care consideration(s): After review of the information above and other included data: --I believe the patient requires escalation of care to admission Critical Care Note: I have personally spent 41 minutes of critical care time in the direct management of this patient. This includes bedside care, interpretation of diagnostic studies, and testing, discussion with consultants, patient, and family members, and other required patient management activities. This 41 minutes is in excess of all separately billable procedures. DISPOSITION: Admission Past Med/Surg History Medical History Osteonecrosis of left hip Lumbar herniated disc Osteoarthritis Chronic back pain Diabetes mellitus, type 2 NIDDM Cardiac murmur H/O Hypertension Sleep apnea Surgical History S/P AVR (aortic valve replacement) 2017 - [facility] 06/08/18 ECHO - RICKEY 1.2 cm^2, Ao mean 7.6 mmHg Fusion of spine L3-S1 X2 06/14/13 - MAC #4, ETT #8, Oral, Grade 1 View, * 2 HANDED MASK * History of herniorrhaphy UMBILICAL History of esophagogastroduodenoscopy (EGD) History of colonoscopy History of nasal septoplasty History of endoscopic sinus surgery History of cataract surgery BILATERAL History of adenoidectomy History of tonsillectomy History of cardiac cath Family History Brother Family history of diabetes mellitus Sister Family history of diabetes mellitus Father Family history of diabetes mellitus Mother Family history of diabetes mellitus Social History Smoking Status: Former smoker Tobacco Type: Cigarettes Smoking End Date: ; Second Hand Exposure: No; Do You Dip or Chew Tobacco: No; Hx Alcohol Use: No Hx Substance Use: No Preferred Language: Faroese Communication Ability: Effective Sandwich Artist Required: No Beliefs That Will Affect Care: None Current Living Situation: Significant Other Other Information That Helps Us Care for You: No Feels Safe at Home: Yes Safety Concerns: Feels Safe At This Time Assistive Devices: CPAP, Denture - Upper and Glasses Assistive Devices Comment: Glasses sent home, upper dentures with patient Allergies Allergies Allergy/AdvReac Type Severity Reaction Status Date / Time olmesartan AdvReac Mild SWEATY & Verified 06/11/23 17:27 DIZZY Home Meds Home Medications Medication Instructions Recorded Confirmed aspirin 81 mg tablet,delayed 81 mg PO QAM 06/08/18 06/11/23 release (Jeny Low Dose Aspirin) ibuprofen 200 mg tablet (Advil) 400 mg PO BID PRN Pain 06/08/18 06/11/23 lisinopril 20 mg tablet 40 mg PO QAM 06/08/18 06/11/23 metformin 500 mg tablet 500 mg PO BID 06/08/18 06/11/23 multivitamin 1 tab PO DAILY 06/08/18 06/11/23 apixaban 5 mg tablet (Eliquis) 5 mg PO BID 06/11/23 06/11/23 cyanocobalamin (vitamin B-12) 1,000 mcg PO DAILY 06/11/23 06/11/23 1,000 mcg tablet (Vitamin B-12) hydrochlorothiazide 25 mg tablet 25 mg PO DAILY 06/11/23 06/11/23 levothyroxine 50 mcg tablet 50 mcg PO DAILY 06/11/23 06/11/23 metoprolol succinate 50 mg 50 mg PO DAILY 06/11/23 06/11/23 tablet,extended release 24 hr pioglitazone 15 mg tablet 15 mg PO QAM 06/11/23 06/11/23 rosuvastatin 10 mg tablet 10 mg PO HS 06/11/23 06/11/23 vit C 250 mg-vit E 90 mg-zinc 40 1 tab PO AMHS 06/11/23 06/11/23 mg-copper 1 [id number] capsule (PreserVision AREDS-2) Results & Data (ED) Vital Signs Vital Signs - 24 hr 06/11/23 15:14 06/11/23 15:14 06/11/23 15:20 Temperature 36.5 C Temperature Source Temporal Artery Scan Pulse Rate 130 H Pulse Rate [Apical] Pulse Rate from SpO2 Sensor Respiratory Rate 20 Respiratory Effort / Characteristics Non-Labored Spontaneous Respiratory Depth Normal Blood Pressure 169/103 H Blood Pressure [Left Arm] Blood Pressure Mean 125 Blood Pressure Mean [Left Arm] Blood Pressure Position Sitting Pulse Oximetry 86 L 94 Oxygen Delivery Method Room Air Room Air Nasal Cannula Oxygen Flow Rate 2 Sepsis Recent Fever Within 48 Hours No Sepsis New/Unexplained Change in Mental Status No Sepsis Action Taken by Nursing No Action Required 06/11/23 15:20 06/11/23 15:43 06/11/23 16:33 Temperature Temperature Source Pulse Rate 104 H Pulse Rate [Apical] Pulse Rate from SpO2 Sensor Respiratory Rate Respiratory Effort / Characteristics Respiratory Depth Blood Pressure 164/122 H Blood Pressure [Left Arm] Blood Pressure Mean Blood Pressure Mean [Left Arm] Blood Pressure Position Pulse Oximetry 96 Oxygen Delivery Method Nasal Cannula Nasal Cannula Oxygen Flow Rate 2 2 Sepsis Recent Fever Within 48 Hours Sepsis New/Unexplained Change in Mental Status Sepsis Action Taken by Nursing 06/11/23 16:39 06/11/23 16:39 06/11/23 16:40 Temperature Temperature Source Pulse Rate 108 H 101 H Pulse Rate [Apical] Pulse Rate from SpO2 Sensor 104 H Respiratory Rate 20 Respiratory Effort / Characteristics Respiratory Depth Blood Pressure 153/112 H Blood Pressure [Left Arm] Blood Pressure Mean 132 Blood Pressure Mean [Left Arm] Blood Pressure Position Pulse Oximetry 95 Oxygen Delivery Method Oxygen Flow Rate Sepsis Recent Fever Within 48 Hours Sepsis New/Unexplained Change in Mental Status Sepsis Action Taken by Nursing 06/11/23 16:40 06/11/23 16:42 06/11/23 16:55 Temperature Temperature Source Pulse Rate 90 Pulse Rate [Apical] 96 H Pulse Rate from SpO2 Sensor 103 H Respiratory Rate 16 20 Respiratory Effort / Characteristics Respiratory Depth Blood Pressure 146/111 H Blood Pressure [Left Arm] 153/112 H Blood Pressure Mean 120 Blood Pressure Mean [Left Arm] 125 Blood Pressure Position Pulse Oximetry 94 95 Oxygen Delivery Method Room Air Oxygen Flow Rate Sepsis Recent Fever Within 48 Hours Sepsis New/Unexplained Change in Mental Status Sepsis Action Taken by Nursing 06/11/23 16:55 06/11/23 17:00 06/11/23 17:00 Temperature Temperature Source Pulse Rate 108 H 99 H Pulse Rate [Apical] Pulse Rate from SpO2 Sensor 100 H Respiratory Rate 23 Respiratory Effort / Characteristics Respiratory Depth Blood Pressure 144/97 H Blood Pressure [Left Arm] Blood Pressure Mean 117 Blood Pressure Mean [Left Arm] Blood Pressure Position Pulse Oximetry 93 Oxygen Delivery Method Oxygen Flow Rate Sepsis Recent Fever Within 48 Hours Sepsis New/Unexplained Change in Mental Status Sepsis Action Taken by Nursing 06/11/23 17:15 06/11/23 17:15 06/11/23 17:25 Temperature Temperature Source Pulse Rate 90 94 H Pulse Rate [Apical] Pulse Rate from SpO2 Sensor 100 H Respiratory Rate 22 Respiratory Effort / Characteristics Respiratory Depth Blood Pressure 133/102 H 133/102 H Blood Pressure [Left Arm] Blood Pressure Mean 111 Blood Pressure Mean [Left Arm] Blood Pressure Position Pulse Oximetry 95 Oxygen Delivery Method Oxygen Flow Rate Sepsis Recent Fever Within 48 Hours Sepsis New/Unexplained Change in Mental Status Sepsis Action Taken by Nursing 06/11/23 17:30 06/11/23 17:30 Temperature Temperature Source Pulse Rate 95 H Pulse Rate [Apical] Pulse Rate from SpO2 Sensor 95 H Respiratory Rate 18 Respiratory Effort / Characteristics Respiratory Depth Blood Pressure 137/102 H Blood Pressure [Left Arm] Blood Pressure Mean 112 Blood Pressure Mean [Left Arm] Blood Pressure Position Pulse Oximetry 93 Oxygen Delivery Method Oxygen Flow Rate Sepsis Recent Fever Within 48 Hours Sepsis New/Unexplained Change in Mental Status Sepsis Action Taken by Long Term Medications Current Medication List: was personally reviewed by me Laboratory Data Attestation: I reviewed the patient's lab results. 06/11/23 15:38 06/11/23 15:38 Lab Results 06/11/23 06/11/23 06/11/23 Range/Units 15:38 17:00 17:22 WBC 9.46 (4.8-10.8) K/ul RBC 4.46 L (4.70-6.10) M/uL Hgb 12.4 L (14.0-18.0) g/dl Hct 37.7 L (42.0-52.0) % MCV 84.5 (80.0-100.0) fL MCH 27.8 (25.0-34.0) pg MCHC 32.9 (32.0-36.0) g/dL RDW Std Deviation 48.8 H (36.4-46.3) fL RDW Coeff of Devang 15.9 H (11.5-14.5) % Plt Count 181 (130-400) K/uL MPV 11.1 (9.4-12.4) fL Immature Gran % (Auto) 0.2 % Neut % (Auto) 82.6 % Lymph % (Auto) 5.3 % [place] % (Auto) 7.9 % Eos % (Auto) 3.7 % Baso % (Auto) 0.3 % Neut # (Auto) 7.81 H (1.40-6.50) K/uL Lymph # (Auto) 0.50 L (1.20-3.40) K/uL [place] # (Auto) 0.75 H (0.11-0.59) K/uL Eos # (Auto) 0.35 (0.00-0.50) K/uL Baso # (Auto) 0.03 (0.00-0.20) K/uL Immature Gran # (Auto) 0.02 (0.01-0.20) K/uL PT 12.9 H (9.0-12.0) Seconds INR 1.2 H (0.9-1.1) APTT 34 H (21-31) Seconds PTT Ratio 1.2 Sodium 135 L (136-145) mmol/L Potassium 3.9 (3.5-5.1) mmol/L Chloride 99 (98-107) mmol/L Carbon Dioxide 27 (21-32) mmol/L Anion Gap 9 (3-11) BUN 18 (6-23) mg/dl Creatinine 0.83 (0.6-1.4) mg/dl Est Cr Clr Drug Dosing 72.1 ml/min Est GFR ( Amer) 95.6 ml/min Est GFR (Non-Af Amer) 82.5 ml/min BUN/Creatinine Ratio 21.7 H (10-20) Glucose 143 H (70-99(Fasting)) mg/dl Calcium 9.5 (8.6-10.3) mg/dl Magnesium 1.7 (1.7-2.4) mg/dl Total Bilirubin 0.8 (0.2-1.0) mg/dl AST 22 (13-39) U/L ALT 12 (7-52) U/L Alkaline Phosphatase 66 (34-104) U/L Troponin I High Sens 22.0 H 28.2 H (0-20) pg/ml B-Natriuretic Peptide 199 H (0-100) pg/ml Total Protein 7.4 (6.0-8.3) gm/dl Albumin 4.5 (3.4-5.0) gm/dl Globulin 2.9 (2.5-4.0) gm/dl Albumin/Globulin Ratio 1.6 (0.9-2) SARS-CoV-2 (PCR) NEGATIVE (Negative) Influenza Type A (PCR) Negative (Neg) Influenza Type B (PCR) Negative (Neg) RSV (RT-PCR) Negative (Neg) Administered Medications Apixaban (Apixaban 5 Mg Tablet) 5 mg PO BID TAHMINA Stop: 07/11/23 21:59 Last Admin: 06/11/23 22:28 Dose: 5 mg Documented By: [id number] Magnesium Sulfate/Dextrose (Magnesium Sulfate / D5w) 1 gm in 100 mls @ 50 mls/hr IV Q2H TAHMINA Stop: 06/12/23 02:59 Last Admin: 06/11/23 23:21 Dose: 50 mls/hr Documented By: [id number] Insulin Aspart (Insulin Aspart Per Unit Charge) 0 units SC ACHS [facility] Stop: 07/11/23 21:40 Last Admin: 06/11/23 22:09 Dose: 3 units Documented By: [id number] Co-signed By: DORINDA Metoprolol Tartrate (Metoprolol Tartrate 25 Mg Tab) 12.5 mg PO Q6H [facility] Stop: 07/11/23 19:59 Last Admin: 06/11/23 20:08 Dose: 12.5 mg Documented By: JUDY Metoprolol Tartrate (Metoprolol Tartrate 1 Mg/Ml Vial) 5 mg IV Q6 PRN PRN Reason: HR > 140 Stop: 07/11/23 21:40 Last Admin: 06/11/23 22:13 Dose: 5 mg Documented By: [id number] Rosuvastatin Calcium (Rosuvastatin Calcium 10 Mg Tab) 10 mg PO [facility] Stop: 07/11/23 21:40 Last Admin: 06/11/23 22:28 Dose: 10 mg Documented By: [id number] Discontinued Medications Diltiazem HCl (Diltiazem Hcl 5 Mg/Ml 5 Ml Vial) 15 mg IV NOW STA Stop: 06/11/23 22:58 Last Admin: 06/11/23 23:20 Dose: 15 mg Documented By: [id number] Co-signed By: DORINDA Furosemide (Furosemide Inj 20 Mg/2 Ml Vial) 20 mg IV ONE ONE Stop: 06/11/23 16:25 Last Admin: 06/11/23 16:33 Dose: 20 mg Documented By: ML Metoprolol Tartrate (Metoprolol Tartrate 1 Mg/Ml Vial) 5 mg IV NOW STA Stop: 06/11/23 16:24 Last Admin: 06/11/23 16:33 Dose: 5 mg Documented By: ML Metoprolol Tartrate (Metoprolol Tartrate 25 Mg Tab) 12.5 mg PO NOW STA Stop: 06/11/23 16:24 Last Admin: 06/11/23 16:33 Dose: 12.5 mg Documented By: ML Potassium Chloride (Potassium Chloride Crtab 20 Meq Tabcr) 20 meq PO NOW STA Stop: 06/11/23 22:58 Last Admin: 06/11/23 23:21 Dose: 20 meq Documented By: [id number] Imaging Data Radiologist's Impression: Chest X-Ray 06/11/23 15:20 SINGLE VIEW CHEST CLINICAL HISTORY: Atypical chest pain FINDINGS: An AP, portable, upright chest radiograph is compared to study dated 06/10/2018. The patient is status post midline sternotomy. The heart is enlarged. There is pulmonary vascular congestion. Chronic interstitial thickening is similar to previous. There is bibasilar scarring/atelectasis. No airspace consolidation or large pleural effusion is identified. No pneumothorax is seen. The skeletal structures are osteopenic. The bony thorax is grossly intact. IMPRESSION: Cardiomegaly with mild pulmonary vascular congestion. ACT 112: Negative or not required by law. Electronically signed by: Perry Minor M.D. 06/11/2023 4:08 PM Discharge Plan Visit Data Chief Complaint: Tachycardia Stated Complaint: COUGH ED Provider: Perry Guzman Discharge Problem: Hypoxia, Atrial fibrillation with rapid ventricular response, CHF (congestive heart failure), SOB (shortness of breath) Patient Disposition: Admitted As Inpatient Condition: Fair Discharge Instructions Interventions: ED Discharge Assessment Last Done: 06/11/23 21:45 Discharge Problem: CHF (congestive heart failure) Qualifiers: Heart failure type: unspecified Heart failure chronicity: acute Qualified Code(s): I50.9 - Heart failure, unspecified
[2023-06-11] MEDS: METOPROLOL TARTRATE 1 MG/ML VIAL IV STA (16:33)
[2023-06-11] MEDS: FUROSEMIDE INJ 20 MG/2 ML VIAL IV ONE (16:33)
[2023-06-11] MEDS: METOPROLOL TARTRATE 25 MG TAB PO STA (16:33)
--- NOTE | 2023-06-11 17:46 | History & Physical Report ---
Date of Service June 11, 2023 Assessment & Plan (1) Acute hypoxic respiratory failure: Plan: This is an 83yo M with PMH of atrial fibrillation diagnosed 2 months ago, DM II, s/p AV replacement, sleep apnea on CPAP and other medical problems listed below who presents with worsening SOB and low oxygen levels over the past few days and found to have hypoxia 2/2 acute decompensated heart failure and a fib with RVR. Hypoxic at 86% on room air in setting of decompensated HF as below Continue supplemental O2, now saturating 95% on 2L NC Wean as tolerated (2) Atrial fibrillation with RVR: Plan: Diagnosed 2 months ago Initially with HR in 130s, improved to 100s after Lopressor 5mg IV, 12.5mg PO x 1 in ED Continue Lopressor 12.5mg Q6H for now Continue Eliquis for anticoagulation Telemetry monitoring Routine cards consult (3) Acute heart failure with preserved ejection fraction (HFpEF): Plan: In setting of A fib as above Echo from 06/08 with normal EF 55-59%, grade II diastolic dysfunction BNP 199 CXR with Cardiomegaly with mild pulmonary vascular congestion Given 20mg IV Lasix in ED Will continue with 20mg IV daily for now as Lasix naiive Strict I&Os, daily weights (4) S/P AVR (aortic valve replacement): Plan[place] [facility] [place]) Diabetes mellitus, type 2: Plan: A1c 7.3 in Mar Hold home agents SSI while in-patient BSG AC HS (6) Hypertension: Plan: Elevated recently, lisinopril increased from 20 to 40mg, beta dioni transitioned to Toprol 50mg this morning Hold HCTZ while receiving lasix (7) Sleep apnea: Plan: CPAP HS DVT Ppx: Eliquis Code status: FULL PCP: Jacklyn Dispo: Admitted to PCU Patient seen in collaboration with Dr. Bhatt. Please see addendum. I spent a total of 75 minutes coordinating, documenting, and providing care for this patient excluding time spent in the performance of separately billed services. History of Present Illness Chief Complaint: SOB Primary Care Provider: Damien Villasenor DO This is an 83yo M with PMH of atrial fibrillation diagnosed 2 months ago, DM II, s/p AV replacement, sleep apnea on CPAP and other medical problems listed below who presents with worsening SOB and low oxygen levels over the past few days. Patient was diagnosed with A fib 2 months ago. Was seen in cardiology clinic on 06/08 for follow up for A fib and as well as HTN (lisinopril was increased in past month by PCP from 20 to 40mg). Underwent echo on 06/08 showing normal EF 55- 59%, grade II diastolic dysfunction, AV prosthesis visualized. Was transitioned from Lopressor 25mg BID to Toprol 50mg this week and took first dose of Toprol this morning. Patient has noted progressive lower leg edema for a few weeks but developed cough and SOB in the past few days and noted he was having low oxygen levels at home this morning, brought him to the ED. Endorses progressively worsening swelling in lower extremities over the past few weeks. Also with SOB while laying down flat. Has had elevated BP and lisinopril dose was increased last week as well as adjustment from Lopressor to Toprol earlier this week. Endorses fatigue, productive cough with white sputum. No fever, chills, CP, palpitations, N/V, abd pain, dysuria, diarrhea or constipation. Allergies Allergy/AdvReac Type Severity Reaction Status Date / Time olmesartan AdvReac Mild SWEATY & Verified 06/11/23 17:27 DIZZY Home Medications Medication Instructions Recorded Confirmed Type aspirin 81 mg tablet,delayed 81 mg PO QAM 06/08/18 06/11/23 History release (Jeny Low Dose Aspirin) ibuprofen 200 mg tablet (Advil) 400 mg PO BID PRN Pain 06/08/18 06/11/23 History lisinopril 20 mg tablet 40 mg PO QAM 06/08/18 06/11/23 History metformin 500 mg tablet 500 mg PO BID 06/08/18 06/11/23 History multivitamin 1 tab PO DAILY 06/08/18 06/11/23 History apixaban 5 mg tablet (Eliquis) 5 mg PO BID 06/11/23 06/11/23 History cyanocobalamin (vitamin B-12) 1,000 mcg PO DAILY 06/11/23 06/11/23 History 1,000 mcg tablet (Vitamin B-12) hydrochlorothiazide 25 mg tablet 25 mg PO DAILY 06/11/23 06/11/23 History levothyroxine 50 mcg tablet 50 mcg PO DAILY 06/11/23 06/11/23 History metoprolol succinate 50 mg 50 mg PO DAILY 06/11/23 06/11/23 History tablet,extended release 24 hr pioglitazone 15 mg tablet 15 mg PO QAM 06/11/23 06/11/23 History rosuvastatin 10 mg tablet 10 mg PO HS 06/11/23 06/11/23 History vit C 250 mg-vit E 90 mg-zinc 40 1 tab PO AMHS 06/11/23 06/11/23 History mg-copper 1 [id number] capsule (PreserVision AREDS-2) Past Med/Surg History Medical History Osteonecrosis of left hip Lumbar herniated disc Osteoarthritis Chronic back pain Diabetes mellitus, type 2 NIDDM Cardiac murmur H/O Hypertension Sleep apnea Surgical History S/P AVR (aortic valve replacement) 2016 - [facility] 06/08/18 ECHO - RICKEY 1.2 cm^2, Ao mean 7.6 mmHg Fusion of spine L3-S1 X2 06/14/13 - MAC #4, ETT #8, Oral, Grade 1 View, * 2 HANDED MASK * History of herniorrhaphy UMBILICAL History of esophagogastroduodenoscopy (EGD) History of colonoscopy History of nasal septoplasty History of endoscopic sinus surgery History of cataract surgery BILATERAL History of adenoidectomy History of tonsillectomy History of cardiac cath Family History Brother Family history of diabetes mellitus Sister Family history of diabetes mellitus Father Family history of diabetes mellitus Mother Family history of diabetes mellitus Social History Smoking Status: Former smoker Second Hand Exposure: No; Do You Dip or Chew Tobacco: No; Hx Alcohol Use: Yes Alcohol type: beer Hx Substance Use: No Preferred Language: Estonian Communication Ability: Effective 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 Physical Exam Physical Exam: Please see Dr. Bhatt' addendum for physical exam. Results & Data Results & Data Vital Signs (Past 12 Hours) Vital Signs Temp Pulse Pulse Resp BP BP Pulse Ox 06/11/23 17:25 94 H 133/102 H 06/11/23 16:42 96 H 20 153/112 H 95 06/11/23 16:39 108 H 06/11/23 16:33 104 H 164/122 H 06/11/23 15:43 96 06/11/23 15:20 06/11/23 15:20 94 06/11/23 15:14 36.5 C 130 H 20 169/103 H 86 L 06/11/23 15:14 O2 Del Method O2 Flow Rate 06/11/23 17:25 06/11/23 16:42 Room Air 06/11/23 16:39 06/11/23 16:33 06/11/23 15:43 Nasal Cannula 2 06/11/23 15:20 Nasal Cannula 2 06/11/23 15:20 Nasal Cannula 2 06/11/23 15:14 Room Air 06/11/23 15:14 Room Air Laboratory Results Short CBC 06/11/23 Range/Units 15:38 WBC 9.46 (4.8-10.8) K/ul Hgb 12.4 L (14.0-18.0) g/dl Hct 37.7 L (42.0-52.0) % Plt Count 181 (130-400) K/uL BMP 06/11/23 15:38 Sodium 135 L Potassium 3.9 Chloride 99 Carbon Dioxide 27 BUN 18 Creatinine 0.83 Glucose 143 H Calcium 9.5 Liver Function 06/11/23 Range/Units 15:38 Total Bilirubin 0.8 (0.2-1.0) mg/dl AST 22 (13-39) U/L ALT 12 (7-52) U/L Alkaline Phosphatase 66 (34-104) U/L Albumin 4.5 (3.4-5.0) gm/dl Diagnostic Findings Chest X-Ray 06/11/23 15:20 SINGLE VIEW CHEST CLINICAL HISTORY: Atypical chest pain FINDINGS: An AP, portable, upright chest radiograph is compared to study dated 06/10/2018. The patient is status post midline sternotomy. The heart is enlarged. There is pulmonary vascular congestion. Chronic interstitial thickening is similar to previous. There is bibasilar scarring/atelectasis. No airspace consolidation or large pleural effusion is identified. No pneumothorax is seen. The skeletal structures are osteopenic. The bony thorax is grossly intact. IMPRESSION: Cardiomegaly with mild pulmonary vascular congestion. ACT 112: Negative or not required by law. Electronically signed by: Perry Minor M.D. 06/11/2023 4:08 PM Supervising Physician Co-Signing Physician Notes I have seen and discussed the case with the collaborating advanced practitioner. I agree with the above H&P. I have reviewed and confirmed the patients medical history, the findings on physical examination, and the patients diagnosis and treatment plan with Irwin ORTEGA and agree with the information documented. In short, Mr. Smith is an 83 year old gentleman with history of New Onset A Fib, [id number] (age, DM II, HTN), PVCs, s/p TAVR 2016, DM II, HTN, HLD who is admitted for acute heart failure with preserved ejection fraction iso atrial fibrillaion with RVR. Patient recently following with Cardiology given new onset A Fib and started on eliquis, metoprolol, as well as recent increase in other medications. He notes 2 weeks of lower extremity swelling, however, after his stress test recently, he felt more short of breath day by day, prompting presentation. Recent ECHO with EF 55-60% s/p lasix 20 in ed GENERAL APPEARANCE: AxOx4, generally well-appearing M, no acute distress. on 2 L NC HEENT: NC, AT. MMM. EOMI, clear conjunctiva, oropharynx clear. NECK: Supple without lymphadenopathy. No stiffness or restricted ROM. HEART: Normal rate and regular rhythm, normal S1/S1, no m/r/g LUNGS: diminshed breath sounds, limited 2/2 cough ABDOMEN: Soft, nontender, nondistended with good bowel sounds heard. BACK: No CVAT, no obvious deformity. EXTREMITIES: Without cyanosis, clubbing; bilateral lower extremity edema 2+ up to knees NEUROLOGICAL: Grossly nonfocal. Alert and oriented, moving all 4 extremities. CN not formally tested but appear grossly intact. Skin: Warm and dry without any rash. : #Acute HFPEF #Atrial fibrillation with RVR -Continue PO metoprolol tartrate 12.5mg q6 PO, with IV 5mg for rates >130 -Continue IV lasix -Continue ACEi -strict IOS Continue apixaban Admit tele Cards consult rest of plan as above I spent a total of 35 minutes coordinating, documenting, and providing care for this patient excluding time spent in the performance of separately billed services. All of the aforementioned completed outside of collaborating with the assigned advanced practitioner for a full treatment plan. I have reviewed the advanced practitioner's documentation, and I agree with, and take responsibility for the plan of care
[2023-06-11 18:08] LABS: Influenza A virus by PCR Negative (Neg); Influenza B virus by PCR Negative (Neg); RSV by PCR Negative (Neg); SARS CoV2 RNA(COVID-19) Ceph NEGATIVE (Negative)
[2023-06-11 18:10] LABS: INR 1.2 (0.9-1.1); Partial Thromboplastin Ratio 1.2; Partial Thromboplastin Time 34 Seconds (21-31); Prothrombin Time 12.9 Seconds (9.0-12.0)
[2023-06-11] MEDS: METOPROLOL TARTRATE 25 MG TAB PO SCH (20:08)
[2023-06-11] MEDS ORDERED: GLUCAGON FOR INJ 1 MG VIAL SQ PRN (21:41)
[2023-06-11] MEDS ORDERED: ACETAMINOPHEN 325 MG TAB PO PRN (21:41)
[2023-06-11] MEDS ORDERED: POLYETHYLENE (MIRALAX) 17 GM PACK PO PRN (21:41)
[2023-06-11] MEDS ORDERED: GLUCOSE 40% GEL 15 GM TUBE PO PRN (21:41)
[2023-06-11] MEDS ORDERED: NON-FORMULARY MEDICATION (Vit C,E-Zn-Coppr-Lutein-Zeaxan [Preservision Areds-2] 250-90-40- PO SCH (21:41)
[2023-06-11] MEDS ORDERED: GLUCOSE 10 TAB/TUBE PO PRN (21:41)
[2023-06-11] MEDS ORDERED: DEXTROSE 50% 50 ML SYRINGE IV PRN (21:41)
[2023-06-11] MEDS ORDERED: CARBOHYDRATES FOR HYPOGLYCEMIA PO PRN (21:41)
[2023-06-11] MEDS ORDERED: ONDANSETRON INJ 2 MG/ML 2 ML VIAL IV PRN (21:41)
[2023-06-11] MEDS: INSULIN ASPART PER UNIT CHARGE SC SCH (22:09)
[2023-06-11] MEDS: METOPROLOL TARTRATE 1 MG/ML VIAL IV PRN (22:13)
[2023-06-11] MEDS: APIXABAN 5 MG TABLET PO SCH (22:28)
[2023-06-11] MEDS: ROSUVASTATIN CALCIUM 10 MG TAB PO SCH (22:28)
[2023-06-11] MEDS: dilTIAZem HCl 5 MG/ML 5 ML VIAL IV STA (23:20)
[2023-06-11] MEDS: POTASSIUM CHLORIDE CRTAB 20 MEQ TABCR PO STA (23:21)
[2023-06-11] MEDS: MAGNESIUM SULFATE / D5W 1 GM/100 ML BAG IV SCH (23:21)
[2023-06-12] MEDS: LEVOTHYROXINE SODIUM 50 MCG TABLET PO SCH (05:47)
[2023-06-12 06:33] LABS: Hematocrit (blood only) 37.9 % (42.0-52.0); Hemoglobin 12.1 g/dl (14.0-18.0); Mean Corpuscular Hemoglobin 27.4 pg (25.0-34.0); Mean Corpuscular Hgb Conc 31.9 g/dL (32.0-36.0); Mean Corpuscular Volume 85.9 fL (80.0-100.0); Mean Platelet Volume 10.7 fL (9.4-12.4); Platelet Count 180 K/uL (130-400); RDW Coefficient of Variation 15.9 % (11.5-14.5); RDW Standard Deviation 49.6 fL (36.4-46.3); Red Blood Count 4.41 M/uL (4.70-6.10); White Blood Count 8.17 K/ul (4.8-10.8)
[2023-06-12 07:00] LABS: BUN Creatinine Ratio 20.5 (10-20); Calcium 9.3 mg/dl (8.6-10.3); Creatinine Clr Calc Pharmacy 80.3 ml/min; Est GFR (African American) 95.6 ml/min; Est GFR (Non-African American) 82.5 ml/min; Potassium 3.6 mmol/L (3.5-5.1)
[2023-06-12 07:32] LABS: Estimated Average Glucose 174 mg/dl; Hemoglobin A1C 7.7 % (4.5-5.6)
[2023-06-12] MEDS: ASPIRIN 81 MG ECTAB PO SCH (08:55)
[2023-06-12] MEDS: lisinopril 40 MG TAB PO SCH (08:55)
[2023-06-12] MEDS: MULTIVITAMIN TAB PO SCH (08:55)
[2023-06-12] MEDS: CYANOCOBALAMIN (B-12) 500 MCG TABLET PO SCH (08:55)
[2023-06-12] MEDS: MAGNESIUM SULFATE / D5W 1 GM/100 ML BAG IV SCH (10:15)
[2023-06-12] MEDS: POTASSIUM CHLORIDE CRTAB 20 MEQ TABCR PO STA (10:15)
--- NOTE | 2023-06-12 12:10 | Cardiology Consultation ---
Date of Consultation June 12, 2023 Assessment & Plan (1) Acute on chronic diastolic heart failure with preserved ejection fraction: (2) Atrial fibrillation with rapid ventricular response: (3) Hypertension: (4) S/P AVR (aortic valve replacement): Plan Patient admitted after several days of worsening SOB/cough/edema. Hypoxic on arrival with chest xray revealing pulm vascular congestion. Findings suggestive of acute on chronic HFpEF Started on IV lasix. Received one dose in the ER. Start furosemide 40 mg IV today. Monitor I+O's Daily weight. monitor renal function Supplement potassium and magnesium. Consider addition of spironolactone. Consider repeat chest xray in AM Given afib RVR. 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 He has newly diagnosed wall motion abnormality on echo, with evidence of lateral infarct on nuclear stress test He has no symptoms to suggest angina. He had a normal cardiac cath in 2017 with normal arteries at that time. Medical management recommended. Continue statin, Eliquis, metoprolol losartan. He is hypertensive since admission. Monitor BP likely will trend downward with diuresis and increase in metoprolol continue lisinopril. He is s/p AVR - appropriate function of valve Case discussed with Dr. Hair. Further recommendations pending assessment and ev aluation. I spent a total of 60 minutes on the date of service in preparation, delivery, and documentation of the care provided to this patient, excluding any time spent in the performance of separately billed services. Estefanía Kerr PA-C Department of Cardiology, [facility] This chart was completed in part utilizing Speech Voice Recognition Software. Grammatical errors, random word insertions, pronoun errors, and incomplete sentences are an occasional consequence of this system due to software limitations, ambient noise, and hardware issues. Any formal questions or concerns about the content, text, or information contained within the body of this dictation should be directly addressed to the provider for clarification. Supervising Physician Co-Signing Physician Notes Patient was seen and personally examined. Full assessment and plan as outlined above. Care and management discussed in detail with advanced provider and plan personally endorsed 83-year-old male who underwent surgical aortic valve replacement in 2016, normal coronaries preoperatively. Issues include hypertension, obstructive sleep apnea, newly observed atrial fibrillation March 2023. Recent issues with increased atrial fibrillation ventricular response rates culminating in presentation with acute dyspnea and decompensated diastolic heart failure Patient improving with diuretics in hospital Blood pressure elevated on presentation Plan as outlined above control heart rate further with increased dose of metoprolol succinate Continue IV diuresis Low threshold for adding additional antihypertensive regimen. Will require increased diuretic dosing on discharge. Continue Eliquis I spent a total of 20 minutes additional on the date of service in preparation, delivery, and documentation of the care provided to this patient. History of Present Illness Reason for Consultation: CHF; Afib RVR Requesting Physician: Ms. Ju Gayle PA-C Attending Physician: Dr. Hair History of Present Illness Patient is an 83-year-old male known to [facility] cardiology, following with Dr. Auguste and most recently EP, XAVIER Taylor. History includes: s/p TAVR 2016 Normal coronary arteries per cath in 2016 at [facility] HTN HLD Newly diagnosed atrial fibrillation in Mar 2023. Started on Eliquis and metoprolol titrated for rate control. Patient was diagnosed with atrial fibrillation in March 2023, 100% burden on outpatient ZIO monitor with average heart rate in the 90s. He was evaluated by EP and ongoing rate control strategy was recommended. He was started on Eliquis 5 mg twice daily for anticoagulation and metoprolol succinate. Most recently at the outpatient visit, metoprolol succinate was increased to 75 mg daily. He subsequently underwent outpatient echocardiogram and nuclear stress testing completed earlier this week. Echocardiogram revealed preserved ejection fraction of 55 to 59% with moderate inferior posterior lateral wall motion abnormalities with hypokinesis of the segments. Normal measurements of aortic valve status post TAVR. Wall motion abnormalities were new compared to prior evaluation. He also underwent nuclear stress testing this week which demonstrated an area of lateral infarct without jesse-infarct ischemia. There was hypokinesis of the base and mid lateral wall with ejection fraction of 48%. Patient denies recent chest pain at rest or with exertion. Over the last week patient developed worsening SOB, cough, wheezing, and LE edema. He came to the ER for evaluation due to worsening symptoms. On arrival to the ER - he was found to be hypoxic with pulm vascular congestion on arrival along with afib RVR. He was treated with one dose of IV cardizem to aid his HR. He was given one dose of IV lasix. Upon evaluation, patient sitting up in bed, feeling better. Still with ongoing cough/congestion. No chest pain. asymptomatic with afib. Variable rates on telemetry. Mild LE edema noted over the last few days. Allergies Allergy/AdvReac Type Severity Reaction Status Date / Time olmesartan AdvReac Mild SWEATY & Verified 06/11/23 17:27 DIZZY Home Medications Medication Instructions Recorded Confirmed Type aspirin 81 mg tablet,delayed 81 mg PO QAM 06/08/18 06/11/23 History release (Jeny Low Dose Aspirin) ibuprofen 200 mg tablet (Advil) 400 mg PO BID PRN Pain 06/08/18 06/11/23 History lisinopril 20 mg tablet 40 mg PO QAM 06/08/18 06/11/23 History metformin 500 mg tablet 500 mg PO BID 06/08/18 06/11/23 History multivitamin 1 tab PO DAILY 06/08/18 06/11/23 History apixaban 5 mg tablet (Eliquis) 5 mg PO BID 06/11/23 06/11/23 History cyanocobalamin (vitamin B-12) 1,000 mcg PO DAILY 06/11/23 06/11/23 History 1,000 mcg tablet (Vitamin B-12) hydrochlorothiazide 25 mg tablet 25 mg PO DAILY 06/11/23 06/11/23 History levothyroxine 50 mcg tablet 50 mcg PO DAILY 06/11/23 06/11/23 History metoprolol succinate 50 mg 50 mg PO DAILY 06/11/23 06/11/23 History tablet,extended release 24 hr pioglitazone 15 mg tablet 15 mg PO QAM 06/11/23 06/11/23 History rosuvastatin 10 mg tablet 10 mg PO HS 06/11/23 06/11/23 History vit C 250 mg-vit E 90 mg-zinc 40 1 tab PO AMHS 06/11/23 06/11/23 History mg-copper 1 [id number] capsule (PreserVision AREDS-2) Patient History Medical History Osteonecrosis of left hip Lumbar herniated disc Osteoarthritis Chronic back pain Diabetes mellitus, type 2 NIDDM Cardiac murmur H/O Hypertension Sleep apnea Surgical History (Updated 06/12/23 @ 14:38 by Alexandr Hair MD) S/P AVR (aortic valve replacement) 2017 - [facility] 06/08/18 ECHO - RICKEY 1.2 cm^2, Ao mean 7.6 mmHg Fusion of spine L3-S1 X2 06/14/13 - MAC #4, ETT #8, Oral, Grade 1 View, * 2 HANDED MASK * History of herniorrhaphy UMBILICAL History of esophagogastroduodenoscopy (EGD) History of colonoscopy History of nasal septoplasty History of endoscopic sinus surgery History of cataract surgery BILATERAL History of adenoidectomy History of tonsillectomy History of cardiac cath Family History Brother Family history of diabetes mellitus Sister Family history of diabetes mellitus Father Family history of diabetes mellitus Mother Family history of diabetes mellitus Social History Smoking Status: Former smoker Tobacco Type: Cigarettes Smoking End Date: ; Second Hand Exposure: No; Do You Dip or Chew Tobacco: No; Hx Alcohol Use: No Hx Substance Use: No Preferred Language: Chinese Communication Ability: Effective Csm Consultant Required: No Beliefs That Will Affect Care: None Current Living Situation: Significant Other Other Information That Helps Us Care for You: No Feels Safe at Home: Yes Safety Concerns: Feels Safe At This Time Assistive Devices: None Assistive Devices Comment: Glasses sent home, upper dentures with patient Review of Systems Review of Systems: All systems reviewed & are unremarkable except as noted in HPI & below Physical Exam Constitutional: WD/WN, vitals as above no acute distress Respiratory: + cough; no labored breathing Auscult ation: + rales, + rhonchi and + wheezes Cardiovascular: Rate/Rhythm: + irregularly irregular Heart Sounds: + murmur (II/ systolic murmur) Vessels: + JVD Extremities: + edema (trace ankle/pretibial edema) Gastrointestinal (Abdomen): normal bowel sounds, soft, nontender, no hepatosplenomegaly Musculoskeletal: no cyanosis or clubbing, extremities motor strength 5/5 Neurologic: PERRL, EOMI, accommodation nl, no face palsy, no dysarthria Psychiatric: A+Ox3, euthymic affect Results & Data Vital Signs (Past 12 Hours) Vital Signs Temp Pulse Pulse Resp BP Pulse Ox O2 Del Method 06/12/23 11:21 36.5 C 108 H 19 157/82 H 95 Nasal Cannula 06/12/23 08:45 87 06/12/23 07:44 Nasal Cannula 06/12/23 07:16 36.4 C L 53 L 18 143/76 H 97 Nasal Cannula 06/12/23 03:12 36.6 C 95 H 18 139/94 95 CPAP 06/12/23 02:17 113 H 30 H 96 06/12/23 00:50 91 H 158/103 H 06/11/23 23:48 108 H O2 Flow Rate 06/12/23 11:21 2 06/12/23 08:45 06/12/23 07:44 2 06/12/23 07:16 2 06/12/23 03:12 06/12/23 02:17 2 06/12/23 00:50 06/11/23 23:48 Laboratory Results Cardiac Enzymes 06/11/23 06/11/23 Range/Units 15:38 17:00 AST 22 (13-39) U/L Troponin I High Sens 22.0 H 28.2 H (0-20) pg/ml B-Natriuretic Peptide 199 H (0-100) pg/ml Coagulation 06/11/23 06/11/23 Range/Units 15:38 17:00 PT 12.9 H (9.0-12.0) Seconds APTT 34 H (21-31) Seconds B-Natriuretic Peptide 199 H (0-100) pg/ml CBC 06/11/23 06/12/23 Range/Units 15:38 06:10 WBC 9.46 8.17 (4.8-10.8) K/ul RBC 4.46 L 4.41 L (4.70-6.10) M/uL Hgb 12.4 L 12.1 L (14.0-18.0) g/dl Hct 37.7 L 37.9 L (42.0-52.0) % Plt Count 181 180 (130-400) K/uL Neut # (Auto) 7.81 H (1.40-6.50) K/uL Lymph # (Auto) 0.50 L (1.20-3.40) K/uL Hitchcock # (Auto) 0.75 H (0.11-0.59) K/uL Eos # (Auto) 0.35 (0.00-0.50) K/uL Baso # (Auto) 0.03 (0.00-0.20) K/uL Comprehensive Metabolic Panel 06/11/23 06/12/23 Range/Units 15:38 06:10 Sodium 135 L 138 (136-145) mmol/L Potassium 3.9 3.6 (3.5-5.1) mmol/L Chloride 99 96 L (98-107) mmol/L Carbon Dioxide 27 33 H (21-32) mmol/L BUN 18 17 (6-23) mg/dl Creatinine 0.83 0.83 (0.6-1.4) mg/dl Glucose 143 H 156 H (70-99(Fasting)) mg/dl Calcium 9.5 9.3 (8.6-10.3) mg/dl AST 22 (13-39) U/L ALT 12 (7-52) U/L Alkaline Phosphatase 66 (34-104) U/L Total Protein 7.4 (6.0-8.3) gm/dl Albumin 4.5 (3.4-5.0) gm/dl Intake and Output 06/11/23 06/12/23 06/12/23 22:59 06:59 14:59 Intake Total 200 / 200 306.667 / 306.667 Output Total 1350 / 1925 575 / 1925 50 / 50 Balance -1350 / -1725 -375 / -1725 256.667 / 256.667 Intake: IV 200 / 200 66.667 / 66.667 Magnesium Sulfate / D5w 1 gm In 200 / 200 66.667 / 66.667 100 ml @ 50 mls/hr IV Q2H TAHMINA Rx#:[id number] Oral 240 / 240 Output: Urine 1350 / 1925 575 / 1925 50 / 50 Other: # Unmeasured Voids 1 1 Weight 83.9 kg 93.8 kg Weight Measurement Method Chair Scale Built in [facility] Diagnostic Findings Telemetry reviewed: Persistent atrial fibrillation with variable ventricular rates ranging 70 to 130 bpm. EKG reviewed from admission 06/11/23: Probable atrial flutter with RVR RBBB Repeat ekg from 06/12/23: Atrial flutter with variable AV block with PVC's - rates improved in the 80's Echocardiogram completed today post admission reviewed: Afib RVR during echo Moderate LVH Moderate inferior, posterior, and lateral wall motion abnormality with hypokinesis EF 55-60% Post TAVR with normal gradients No pulm hypertension Chest xray reviewed on admission: pulm vascular congestion Outside data reviewed: Nuclear stress test report reviewed dated 06/09/2023: Interpretation Summary Abnormal Lexiscan nuclear myocardial perfusion imaging study demonstrating lateral infarct without jesse-infarct ischemia. Abnormal gated SPECT imaging demonstrating hypokinesis of the base and mid lateral wall. Otherwise, normal wall motion. The LV ejection fraction is calculated at 48%. Outpatient echocardiogram report reviewed dated 06/09/2023: Interpretation Summary The rhythm during the transthoracic echo examination was atrial fibrillation with rapid ventricular response. The qualitative LV ejection fraction is 55-59% (normal). The LV wall thickness is mildly increased (concentric). There is a moderate sized inferior, posterior, and lateral wall motion abnormality with hypokinesis of the segments. The left atrium is moderately enlarged (42-48 ml/m^2). There is an aortic valve bioprosthetic present. Aortic valve prosthesis stenosis is absent. Significant aortic valve prosthesis regurgitation is absent. Mild mitral regurgitation is present. Mild tricuspid regurgitation is present. There is no evidence of pulmonary hypertension. Compared to last available study changes are noted as follows: Posterior and lateral wall motion abnormality now presen ZIO monitor report reviewed dated March 2023: Duration: 10 days , 19 hours 4 Ventricular Tachycardia runs occurred, the run with the fastest interval lasting 8.9 secs with a max rate of 190 bpm (avg 165 bpm); the run with the fastest interval was also the longest. Bundle Branch Block/IVCD was present. Atrial Fibrillation occurred continuously (100% burden), ranging from 50-142 bpm (avg of 92 bpm). Isolated VEs were frequent (6.5%, 34539), VE Couplets were rare (<1.0%, 3375), and VE Triplets were rare (<1.0%, 188). Ventricular Bigeminy and Trigeminy were present. No patient triggered event or diary events were submitted. Frequent premature ventricular contractions were observed, PVC burden 6.5%. Medications Administered Current Inpatient Medications Acetaminophen (Acetaminophen 325 Mg Tab) 650 mg PO Q4H PRN PRN Reason: Pain or Fever Stop: 07/11/23 21:40 Apixaban (Apixaban 5 Mg Tablet) 5 mg PO BID TAHMINA Stop: 07/11/23 21:59 Last Admin: 06/12/23 08:55 Dose: 5 mg Aspirin (Aspirin 81 Mg Ectab) 81 mg PO QAM TAHMINA Stop: 07/12/23 08:59 Last Admin: 06/12/23 08:55 Dose: 81 mg Cyanocobalamin (Cyanocobalamin (B-12) 500 Mcg Tablet) 1,000 mcg PO DAILY TAHMINA Stop: 07/12/23 08:59 Last Admin: 06/12/23 08:55 Dose: 1,000 mcg Dextrose (Dextrose 50% 50 Ml Syringe) 25 - 50 ml IV UD PRN; Protocol PRN Reason: Hypoglycemia Protocol Stop: 07/11/23 21:40 Glucagon (Glucagon For Inj 1 Mg Vial) 1 mg SQ UD PRN; Protocol PRN Reason: Hypoglycemia Protocol Stop: 07/11/23 21:40 Glucose (Glucose 10 Tab/Tube) 4 - 8 tab PO UD PRN; Protocol PRN Reason: Hypoglycemia Treatment Stop: 07/11/23 21:40 Glucose (Glucose 40% Gel 15 Gm Tube) 15 - 30 gm PO UD PRN; Protocol PRN Reason: Hypoglycemia Protocol Stop: 07/11/23 21:40 Magnesium Sulfate/Dextrose (Magnesium Sulfate / D5w) 1 gm in 100 mls @ 50 mls/hr IV Q2H [facility] Stop: 06/12/23 13:44 Last Admin: 06/12/23 11:35 Dose: 50 mls/hr Insulin Aspart (Insulin Aspart Per Unit Charge) 0 units SC ACHS TAHMINA Stop: 07/11/23 21:40 Last Admin: 06/12/23 09:03 Dose: 5 units Levothyroxine Sodium (Levothyroxine Sodium 50 Mcg Tablet) 50 mcg PO DAILYBB TAHMINA Stop: 07/12/23 06:29 Last Admin: 06/12/23 05:47 Dose: 50 mcg Lisinopril (Lisinopril 40 Mg Tab) 40 mg PO QAM [facility]AHMINA Stop: 07/12/23 08:59 Last Admin: 06/12/23 08:55 Dose: 40 mg Metoprolol Tartrate (Metoprolol Tartrate 25 Mg Tab) 12.5 mg PO Q6H [facility]AHMINA Stop: 07/11/23 19:59 Last Admin: 06/12/23 08:55 Dose: 12.5 mg Metoprolol Tartrate (Metoprolol Tartrate 1 Mg/Ml Vial) 5 mg IV Q6 PRN PRN Reason: HR > 140 Stop: 07/11/23 21:40 Last Admin: 06/11/23 22:13 Dose: 5 mg Miscellaneous (Carbohydrates For Hypoglycemia ) 15 - 30 gm PO UD PRN PRN Reason: Hypoglycemia Protocol Stop: 07/11/23 21:40 Multivitamins (Multivitamin Tab) 1 tab PO DAILY [facility]AHMINA Stop: 07/12/23 08:59 Last Admin: 06/12/23 08:55 Dose: 1 tab Ondansetron HCl (Ondansetron Inj 2 Mg/Ml 2 Ml Vial) 4 mg IV Q6H PRN PRN Reason: Nausea Stop: 07/11/23 21:40 Polyethylene Glycol (Polyethylene (Miralax) 17 Gm Pack) 17 gm PO DAILY PRN PRN Reason: Constipation Stop: 07/11/23 21:40 Rosuvastatin Calcium (Rosuvastatin Calcium 10 Mg Tab) 10 mg PO HS TAHMINA Stop: 07/11/23 21:40 Last Admin: 06/11/23 22:28 Dose: 10 mg
[2023-06-12] MEDS: FUROSEMIDE 40 MG/4 ML VIAL IV SCH (13:42)
[2023-06-12] MEDS: POTASSIUM CHLORIDE CRTAB 20 MEQ TABCR PO SCH (13:42)
--- NOTE | 2023-06-12 14:25 | Hospitalist Progress Note ---
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 He is being managed for the following: Acute on chronic heart failure with preserved ejection fraction Hypoxia: Likely secondary to above, no respiratory distress noted in ED examination and H&P examination. Patient required 2 L oxygen at presentation. Patient coming in with progressive shortness of breath, BLE swelling. Patient denies febrile illness, admitting BNP 199, elevated troponin in 20s. 06/08 echo with EF of 55 to 59%, grade 2 diastolic dysfunction. Admitting CXR with pulmonary vascular congestion Echo this admission with EF of 55 to 60%; moderate concentric LVH; hypokinesis of inferior, posterior and lateral wall segments noted. Patient started on IV diuresis with Lasix, cardiology on board, managing diuresis Strict I's and O's, daily weight, heart healthy diet, low-sodium diet. Monitor replete electrolytes, continue telemetry monitoring. Will need to discontinue pioglitazone, discussed with the patient and his . They agree. Await further cardiac recs, ? cath Atrial fibrillation with RVR: Metoprolol succinate 50 Mg increased to twice daily dosing. Continue home Eliquis. Continue telemetry monitoring. Rate in low 100s. Patient with no chest pain. Other chronic medical conditions: Continue with/resume home meds as and when able. S/P AVR (aortic valve replacement): S/p AV replacement in 2017 at [facility] Diabetes mellitus, type 2: A1c this admission 7.7. Takes metformin and pioglitazone at home. Had side effect with Januvia in the past. Patient and his are aware that pioglitazone cannot be continued given heart failure. They would like to be put on glimepiride and plan to further follow-up with outpatient provider. Glimepiride on discharge. DC pioglitazone. Hypertension: Continue home lisinopril, patient's cardiac medication being optimized [see above]. Sleep apnea: Continue CPAP DVT prophylaxis: Patient on Eliquis CODE STATUS: Full code PCP: Jacklyn Dispo: Admitted to PCU Admission and Anticipated Discharge Date Admission Date: June 11, 2023 Subjective Patient was seen and examined at bedside. Patient was sitting up in bed, on 2 L oxygen via nasal cannula, NAD. Patient's at bedside was also updated on plan of care. Patient denies any headache/dizziness/chest pain/increased shortness of breath/abdominal pain. Patient reports eating okay and moving bowels okay. We discussed about need for discontinuing pioglitazone given his heart failure. They would like to go with glimepiride and then would like to follow-up with their outpatient provider. Physical Exam Physical Exam: GENERAL: Alert and oriented x3. NAD, on 2L O2 via NC HEENT: No pallor, no icterus. Pupils equal, round and reactive to light. Oral mucosa moist. NECK: No JVD, no neck masses. HEART: S1 and S2 heard. irregular rate and rhythm. No murmur, no gallop. RESPIRATORY SYSTEM: Normal AP diameter. No accessory muscle use. No wheezing, bl crackles. ABDOMEN: Soft, bowel sounds present, nontender, no distention. CENTRAL NERVOUS SYSTEM: No facial droop. Speech is clear. Obeys simple commands. Moves extremities. EXTREMITIES: 1+ ble edema, no erythema seen. Results & Data Results & Data Vital Signs (Past 12 Hours) Vital Signs Temp Pulse Pulse Resp BP Pulse Ox O2 Del Method 06/12/23 11:21 36.5 C 108 H 19 157/82 H 95 Nasal Cannula 06/12/23 08:45 87 06/12/23 07:44 Nasal Cannula 06/12/23 07:16 36.4 C L 53 L 18 143/76 H 97 Nasal Cannula 06/12/23 03:12 36.6 C 95 H 18 139/94 95 CPAP 06/12/23 02:17 113 H 30 H 96 O2 Flow Rate 06/12/23 11:21 2 06/12/23 08:45 06/12/23 07:44 2 06/12/23 07:16 2 06/12/23 03:12 06/12/23 02:17 2
[2023-06-12] MEDS: METOPROLOL SUCC 50MG EXT REL TAB PO SCH (14:31)
--- OUTSIDE RECORDS SUMMARY | 2023-06-12 15:16 | External Medical Summary | Summary of Care ---
Author Name Unknown Organization [facility] Address [address] [facility] [place] [address] Phone [phone] Care Team Providers Care Ore Bridge Operator Name Role Phone Damien Villasenor DO Primary Care Provider [phone] Reason for Referral * Precert (Within 10 days (routine)) - Pending Review Specialty Diagnoses / Procedures Referred By Paulina devine Referred To Contact Radiology Diagnoses S/P AVR (aortic valve replacement) HTN, goal below 140/90 Type 2 diabetes mellitus with hemoglobin A1c goal of less than 8.0% (HCC) New onset atrial fibrillation (HCC) Frequent PVCs Procedures NM MYOCARD PERF IMG SPECT MULT STUDIES WITH PHARM INTERV [facility] [address] [facility] [place] [address] Referral ID Status Reason Start Date Expiration Date Visits Requested Visits Authorized [id number] Pending Review Precert 06/09/2023 999 999 Reason for Visit * Reason Onset Date Comments Information 05/14/2023 Encounter Details Date Type Department Care Team (Late st Contact Info) Description 05/14/2023 Telephone CardiologyAl [address] [place] [address] Melodie Payan CRNP 400 [facility] [place] [address] Information Allergies No known active allergiesdocumented as of this encounter (statuses as of 05/22/2023) Medications Medication Sig Dispensed Refills Start Date End Date Status Aspirin 81 MG Tablet Take 1 Tab by mouth daily. 90 Tab 3 10/05/2017 Active Amoxicillin 500 MG TabletIndications :S/P AVR (aortic valve replacement) Take 4 tablets 30-60 minutes prior to dental procedures 4 Tab 11 10/27/2017 Active Glucose Blood (EASY TOUCH TEST) STRPIndications:T ype 2 diabetes mellitus with hemoglobin A1c goal of less than 8.0% (HCC) E11.9 Use up to 4 times a day [address] 11 12/24/2017 Active EASY TOUCH LANCETS 33G/TWIST MISCIndications:T ype 2 diabetes mellitus with hemoglobin A1c goal of less than 8.0% (HCC) E11.9 Use up to 4 times a day 100 Each 11 12/24/2017 Active Multiple Vitamin (MULTI VITAMIN DAILY) TABS Take 1 Tablet by mouth daily. 0 Active Psyllium 28.3 % Oral Powder Take by mouth. 0 Active Metoprolol Tartrate 25 MG Oral Tablet (Lopressor) Take 1 Tab by mouth every 12 hours. 180 Tab 1 12/20/2020 Active metFORMIN HCl ER 500 MG Oral Tablet Extended Release 24 Hour (Glucophage XR) Take 2 tablets by mouth once daily 180 Tab 0 12/24/2020 Active Additional Information Patient taking differently: 1,000 mg Oral BID (.AM/PM), Reported on 04/03/2023 Levothyroxine Sodium 25 MCG Oral Tablet (Levoxyl) Take 1 Tablet by mouth in the morning. 0 12/02/2021 Active Sildenafil Citrate 50 MG Oral Tablet TAKE ONE CAPSULE BY MOUTH NEEDED DIRECTED Strength: 50 mg 10 Tablet 3 01/13/2022 Active Lisinopril 20 MG Oral Tablet (Prinivil)Indicat ions:HTN, goal below 140/90 Take 1 Tablet by mouth in the morning. 90 Tablet 0 06/03/2022 Active PreserVision AREDS 2+Multi Vit Oral Capsule Take by mouth 2 times a day. 0 Active Zinc 30 MG Oral Tablet Take by mouth daily. 0 Active Airborne Oral Tablet Chewable Take by mouth daily. 0 Active Rosuvastatin Calcium 10 MG Oral Tablet (Crestor) Take 1 Tablet by mouth at bedtime. 0 03/10/2023 Active Apixaban 5 MG Oral Tablet (Eliquis) Take 1 Tablet by mouth in the morning and 1 Tablet before bedtime. 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 Aortic valve stenosis 11/01/20162018 DM type 2, goal: symptom mgmt 08/13/2016 05/23/2019 Overview: Duplicate. documented as of this encounter (statuses as of 05/22/2023) Immunizations Name Administration Dates Next Due COVID-19 mRNA, LNP-s, No Pre serve, 2-Dose Series (Moderna) 05/22/2020,04/24/2020 Season Influenza, Quad, PF, Adjuvanted, 65+ Yrs, IM (FLUAD) 11/11/2019 Seasonal Influenza, PF, 6 M & above, IM , (FluLaval or Fluzone) 11/14/2017 Seasonal Influenza, Quad, Nasal (Flumist) 2019 Seasonal Influenza, Quadrivalent, No Preserve, I M 12/01/2016 Seasonal Influenza, Trivalent, Adjuvanted, 65+ y rs 10/23/2018 TDAP (age 10 and older)(Boostrix) 03/26/2015 Zoster Vaccine Recombinant (Shingrix) 07/30/2020 documented as of this encounter Social History Tobacco Use Types Packs/Day Years Used Date Smoking Tobacco: Former Cigarettes 1 39 0 02/23/1957 - 02/24/1996 Smokeless Tobacco: Never Alcohol Use Standard Drinks/Week Comments Yes 0 (1 standard drink = 0.6 oz pur e alcohol) rare PHQ-2 Answer Date Recorded PHQ-2 Score 0 11/23/2018 Hunger Vital Sign Answer Date Recorded Worried About Running Out of Food in the Last Ye ar Never true 11/23/2018 Ran Out of Food in the Last Year Never true 11/23/2018 Sex and Gender Information Value Date Recorded Sex Assigned at Male 11/09/2019 2:52 PM EDT Gender Identity Male 11/09/2019 2:52 PM EDT Sexual Orientation Straight 11/09/2019 2: 52 PM EDT Job Start Date Occupation Industry Not on file Not on file Not on file documented as of this encounter Miscellaneous Notes * Telephone Encounter - Melodie Payan CRNP - 05/22/2023 8:10 AM EDT Orders placed. * Telephone Encounter - Rosa Artis LPN - 05/21/2023 3:48 PM EDT Spoke with pt an by phone. Agreeable to the testing. Pt already has an echo scheduled for 06/09/23 would like to have nuclear stress same day d/t living in [place] and eliminate the need for multiple trips. * Telephone Encounter - Melodie Payan CRNP - 05/14/2023 1:26 PM EDT Attempted to call the patient twice to review his Zio monitor. Indicated that he was in atrial fibrillation 100% of the time. He did have occasional PVCs in bigeminy and trigeminy and given this change I would like him to undergo a nuclear stress test as well. If possible I would attempt to try to coordinate this on the same day he is coming in for the echocardiogram. If he is agreeable please let me know I would be happy to place the order. Thank You, XAVIER Alves documented in this encounter Plan of Treatment Upcoming Encounters Date Type Department Care Team (Late st Contact Info) Description 06/09/2023 12:00 PM EDT Imaging [facility] 2nd Floor Cardiology, [place] [address] [facility] [place] [address] Gw, Excess Time Radiology [address] [facility] [place] [address] 06/09/2023 2:30 PM EDT Cardiac Studies Cardiac Studies, [address] [place] [address] 06/23/2023 3:30 PM EDT Office Visit Cardiology, [address] [place] [address] Melodie Payan CRNP [address] [place] [address] Scheduled Orders Name Type Priority Associated Diagnoses Orde r Schedule NM MYOCARD PERF IMG SPECT MULT STUDIES WITH PHARM INTERV Cardiology Routine S/P AVR (aortic valve replacement) HTN, goal below 140/90 Type 2 diabetes mellitus with hemoglobin A1c goal of less than 8.0% (HCC) New onset atrial fibrillation (HCC) Frequent PVCs Expected: 06/09/2023 (Approximate), Expires: 06/20/2024 Health Maintenance Due Date Last Done Comments Pneumococcal Vaccine: 65+ Years (1 of 2 - PCV) 1946 Depression Screening 11/24/2019 11/23/2018 Diabetic Foot Exam 11/24/2019 11/23/2018, 10/05/2017 Zoster Vaccines (2 of 2) 09/24/2020 07/30/2020 Albumin/Creatinine Ratio 11/08/2020 11/09/2019 B-12 11/08/2020 11/09/2019, 04/16/2018 Diabetic Eye Exam 01/24/2022 01/24/2021, , 12/19/2020, Additional history exists COVID-19 Vaccine ( season) 2022 05/22/2020, 04/24/2020 Influenza Vaccine (FLU shot) (#1) 2022 12/28/2020, 12/28/2020, 11/11/2019, Additional history exists HbA1c 10/02/2023 04/03/2023, 08/24, 12/28/2020, Additional history exists GFR 04/03/2024 04/03/2023, 08/24, 09/11/2021, Additional history exists TSH 04/03/2024 04/03/2023, 10/24, 10/15/2016 DTaP,Tdap,and Td Vaccines (2 - Td or Tdap) 03/26/2025 03/26/2015 GARDASIL-HPV IMMUNIZATION SERIES Aged Out No longer eligible based on patient's age to complete this topic Hepatitis B Aged Out No longer eligi ble based on patient's age to complete this topic MENINGOCOCCAL (MENACTRA/MENVEO) Aged Out No longer eligible based on patient's age to complete this topic documented as of this encounter Medical Devices Implanted Type Area Road Equipment Operator Device Identifier Shelf Expiration Date Model / Serial / Lot Suture Steel 6 B&S19 [id number] - [id number] Implanted:Qty: 2 on 10/28/2016 by Richie Snyder [place] [facility] [place]: Sternum JNJ : [employer] 01/22/2021 [id number] / / [id number] Intuity Valve Implanted:Qty: 1 on 10/28/2016 by Richie Snyder MD at [place] [facility] [place] N/A: Heart [employer] 07/11/2020 [id number] / [id number] / Description:25mm Intuity Michelle ve No Charge Item Per Denise Connolly documented as of this encounter Visit Diagnoses Diagnosis S/P AVR (aortic valve replacement)- Primary Heart valve replaced by other means HTN, goal below 140/90 Unspecified essential hypertension Type 2 diabetes mellitus with hemoglobin A1c goal of less than 8.0% (HCC) New onset atrial fibrillation (HCC) Atrial fibrillation Frequent PVCs Other premature beats documented in this encounter Advance Directives Latest Code Status on File Code Status Date Activated Date Inactivated Comments Full Code 10/28/2016 10:39 AM 11/01/2016 2:36 PM This o rder reflects the patients wishes and were consensually agreed upon. Care Teams Ore Bridge Operator Relationship Specialty Start Date End Date Damien Villasenor DO PCP - General Family Medicine 01/13/22 documented as of this encounter
--- OUTSIDE RECORDS SUMMARY | 2023-06-12 15:16 | External Medical Summary | Summary of Care ---
Author Name Unknown Organization [facility] Address [address] [facility] [place] [address] Phone [phone] Care Team Providers Care Cheesemaker Name Role Phone Damien Villasenor DO Primary Care Provider [phone] Reason for Visit * Reason Onset Date Comments FYI 06/02/2023 Medication dosag e increase FYI Encounter Details Date Type Department Care Team (Late st Contact Info) Description 06/02/2023 Telephone Cardiology, [place] [address] [facility] [place] [address] Melodie Payan CRNP [address] [place] [address] FYI (Medication dosage increase FYI) Allergies No known active allergiesdocumented as of this encounter (statuses as of 06/05/2023) Medications Medication Sig Dispensed Refills Start Date [...] hemoglobin A1c goal of less than 8.0% ([facility]) E11.9 Use up to 4 times a day [address] 11 12/24/2017 Active EASY TOUCH LANCETS 33G/TWIST MISCIndications:T ype 2 diabetes mellitus with hemoglobin A1c goal of less than 8.0% ([facility]) E11.9 Use up to 4 times a [...] as of this encounter (statuses as of 06/05/2023) Active Problems Problem Noted Date Diagnosed Date 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 Aortic valve stenosis 11/01/20162018 DM type 2, goal: symptom mgmt 08/13/2016 05/23/2019 Overview: Duplicate. documented as of this encounter (statuses as of 06/05/2023) Immunizations Name Administration Dates Next Due COVID-19 [...] Telephone Encounter - Melodie Payan CRNP - 06/05/2023 10:01 AM EDT Will move up his follow up and make additional recommendations at that time Thank You XAVIER Alves * Telephone Encounter - Gloria Hernandez CMA - 06/02/2023 1:59 PM EDT Spoke with Erica. She gave me the following home BPs, states they are taken 2-3 hrs after medication. 162/90 152/92 141/79 141/87 HRs in the 70s He still takes metoprolol tartrate 25 mg BID. Will call PCP to obtain last OV. * Telephone Encounter - Emi Guy OSA - 06/02/2023 12:15 PM EDT Person calling: Erica Relationship to patient: Friend Number to return call: [phone] Reason for call: Would like to provide medication FYI. States that about 1.5 weeks ago, PCP, Dr. Damien Villasenor, increased the patient's Lisinopril 20 MG Oral Tablet (Prinivil) to 40 MG due to high BP. Erica states that this has been helping the patient's BP issues. Outcome: N/A Pharmacy: N/A Provider Name: XAVIER Taylor documented in this encounter Plan of Treatment Upcoming Encounters Date Type Department Care Team (Late st Contact Info) Description 06/09/2023 12:00 PM EDT Imaging [facility] 2nd Floor Cardiology, [place] [address] [place] [address] Gw, Excess Time Radiology [address] [place] [address] 06/09/2023 2:30 PM EDT Cardiac Studies Cardiac Studies, [facility] [address] [facility] [place] [address] 06/09/2023 3:30 PM EDT Office Visit Cardiology, [facility] [address] [facility] [place] [address] Melodie Payan CRNP [address] [place] [place] [address] Health Maintenance Due Date Last Done Comments Pneumococcal Vaccine: 65+ Years (1 of 2 - PCV) 1946 Depression Screening 11/24/2019 11/23/2018 Diabetic Foot Exam 11/24/2019 11/23/2018, 10/05/2017 Zoster Vaccines (2 of 2) 09/24/2020 07/30/2020 Albumin/Creatinine Ratio 11/08/2020 11/09/2019 B-12 11/08/2020 11/09/2019, 04/16/2018 Diabetic Eye Exam 01/24/2022 01/24/2021, , 12/19/2020, Additional history exists COVID-19 Vaccine ( season) 2022 05/22/2020, 04/24/2020 HbA1c 10/02/2023 04/03/2023, 08/24, 12/28/2020, Additional history exists Influenza Vaccine (FLU shot) (Season Ended) 2023 12/28/2020, 12/28/2020, 11/11/2019, Additional history exists GFR 04/03/2024 04/03/2023, 08/24, [...] this encounter Medical Devices Implanted Type Area Broker Assistant Device Identifier Shelf Expiration Date Model / Serial / Lot Suture Steel 6 B&S19 M654g - [id number] Implanted:Qty: 2 on 10/28/2016 by Richie Snyder MD at OR [facility] N/A: Sternum JNJ : [employer] 01/22/2021 [id number] / / [id number] Messer Intuity Valve Implanted:Qty: 1 on 10/28/2016 by Richie Snyder MD at OR [facility] [place] N/A: Heart [employer] 07/11/2020 [id number] / [id number] / Description:25mm Intuity Michelle ve No Charge Item Per Denise Connolly documented as of this encounter Advance Directives Latest Code Status on File Code Status Date Activated Date Inactivated Comments Full Code 10/28/2016 10:39 AM 11/01/2016 2:36 PM This o rder reflects the patients wishes and were consensually agreed upon. Care Teams Cheesemaker Relationship Specialty Start Date End Date Damien Villasenor DO PCP - General Family Medicine 01/13/22 documented as of this encounter
--- OUTSIDE RECORDS SUMMARY | 2023-06-12 15:16 | External Medical Summary | Summary of Care ---
Author Name Unknown Organization [facility] Address [address] [place] [address] Phone [phone] Care Team Providers Care Computer Operations Supervisor Name Role Phone Abilio Villasenorjose alberto Warner Primary Care Provider [phone]- [phone] Reason for Visit * Reason Comments Outpatient Testing Encounter Details Date Type Department Care Team (Late st Contact Info) Description 04/03/2023 4:20 PM EST Laboratory Laboratory, [facility] [address] [place] [phone] [facility] [address] [place] [address] S/P AVR (aortic valve replacement); HTN, goal below 140/90; Type 2 diabetes mellitus with hemoglobin A1c goal of less than 8.0% (HCC); Hyperlipidemia, unspecified hyperlipidemia type; Fatigue, unspecified type; New onset atrial fibrillation (HCC) Allergies No known active allergiesdocumented as of this encounter (statuses as of 04/07/2023) Medications Medication Sig Dispensed Refills Start Date [...] hemoglobin A1c goal of less than 8.0% ([facility]) E11.9 Use up to 4 times a day [address] 11 12/24/2017 Active EASY TOUCH LANCETS 33G/TWIST MISCIndications:T ype 2 diabetes mellitus with hemoglobin A1c goal of less than 8.0% ([facility]) E11.9 Use up to 4 times a [...] as of this encounter (statuses as of 04/07/2023) Active Problems Problem Noted Date Diagnosed Date Other fci (current) drug therapy 9 Type 2 diabetes mellitus wit h hemoglobin A1c goal of less than 8.0% 10/30/2017 Obesity, Class I, BMI 30.0-34.9 (see actual BMI) 10/05/2017 Insomnia 10/05/2017 HTN, goal below 140/90 10/05/2017 S/P AVR (aortic valve replacement) 11/14/2016 Aortic valve stenosis 08/13/2016 documented as of this encounter (statuses as of 04/07/2023) Resolved Problems Problem Noted Date Diagnosed Date Resolved Date Type 2 diabetes mellitus with complication 11/23/2018 05/23/2019 Overview: More specific code in use. Aortic valve stenosis 11/01/20162018 DM type 2, goal: symptom mgmt 08/13/2016 05/23/2019 Overview: Duplicate. documented as of this encounter (statuses as of 04/07/2023) Immunizations Name Administration Dates Next Due COVID-19 [...] Used Date Smoking Tobacco: Former Cigarettes 1 0 02/23/1957 - 02/24/1996 Smokeless Tobacco: Never [...] as of this encounter Miscellaneous Notes * Result Encounter Note - Melodie Payan CRNP - 04/07/2023 1:40 PM EST Please see telephone encounter documented in this encounter Plan of Treatment Upcoming Encounters Date Type Department Care Team (Late st Contact Info) Description 06/09/2023 2:30 PM EDT Cardiac Studies Cardiac Studies, [facility] [address] [facility] [place] [address] 06/23/2023 3:30 PM EDT Office Visit Cardiology, [facility] [address] [facility] [place] [address] Melodie Payan CRNP [address] [place] [address] [place] [phone] Health Maintenance Due Date Last Done Comments Pneumococcal Vaccine: 65+ Years (1 - PCV) 1946 Hepatitis B (1 of 3 - Risk 3-dose series) 2002 Depression Screening 11/24/2019 11/23/2018 Diabetic Foot Exam 11/24/2019 11/23/2018, 10/05/2017 Zoster Vaccines (2 of 2) 09/24/2020 07/30/2020 Albumin/Creatinine Ratio 11/08/2020 11/09/2019 B-12 11/08/2020 11/09/2019, 04/16/2018 Diabetic Eye Exam 01/24/2022 01/24/2021, , 12/19/2020, Additional history exists COVID-19 Vaccine (3 - 2022- season) 2022 05/22/2020, 04/24/2020 Influenza Vaccine (FLU [...] this encounter Medical Devices Implanted Type Area Flooring Machine Feeder Device Identifier Shelf Expiration Date Model / Serial / Lot Boyd Intuity Valve Implanted:Qty: 1 on 10/28/2016 by Richie Snyder MD [place] [facility] [place]/A: Heart [address] 07/11/2020 [id number] / [id number] / Description:25mm Intuity Michelle ve No Charge Item Per Denise Connolly documented as of this encounter Procedures Procedure Name Priority Date/Time Associated Diagnosis Comments TSH WITH FREE T4 IF INDICATED Routine 04/03/2023 3:58 PM EST S/P AVR (aortic valve replacement) HTN, goal below 140/90 Type 2 diabetes mellitus with hemoglobin A1c goal of less than 8.0% (HCC) Hyperlipidemia, unspecified hyperlipidemia type Fatigue, unspecified type New onset atrial fibrillation (HCC) LIPID PANEL WITH DIRECT LDL IF TG IS HIGH Routine 04/03/2023 3:58 PM EST S/P AVR (aortic valve replacement) HTN, goal below 140/90 Type 2 diabetes mellitus with hemoglobin A1c goal of less than 8.0% (HCC) Hyperlipidemia, unspecified hyperlipidemia type Fatigue, unspecified type New onset atrial fibrillation (HCC) HEMOGLOBIN A1C Routine 04/03/2023 3:58 PM EST S/P AVR (aortic valve replacement) HTN, goal below 140/90 Type 2 diabetes mellitus with hemoglobin A1c goal of less than 8.0% (HCC) Hyperlipidemia, unspecified hyperlipidemia type Fatigue, unspecified type New onset atrial fibrillation (HCC) COMPREHENSIVE METABOLIC PANEL Routine 04/03/2023 3:58 PM EST S/P AVR (aortic valve replacement) HTN, goal below 140/90 Type 2 diabetes mellitus with hemoglobin A1c goal of less than 8.0% (HCC) Hyperlipidemia, unspecified hyperlipidemia type Fatigue, unspecified type New onset atrial fibrillation (HCC) CBC Routine 04/03/2023 3:58 PM EST S/P AVR (aortic valve replacement) HTN, goal below 140/90 Type 2 diabetes mellitus with hemoglobin A1c goal of less than 8.0% (HCC) Hyperlipidemia, unspecified hyperlipidemia type Fatigue, unspecified type New onset atrial fibrillation (HCC) LDL CHOLESTEROL (DIRECT MEASURE) Routine 04/03/2023 3:58 PM EST S/P AVR (aortic valve replacement) HTN, goal below 140/90 Type 2 diabetes mellitus with hemoglobin A1c goal of less than 8.0% (HCC) Hyperlipidemia, unspecified hyperlipidemia type Fatigue, unspecified type New onset atrial fibrillation (HCC) documented in this encounter Results * LDL CHOLESTEROL (DIRECT MEASURE) (04/03/2023 3:58 PM EST) LDL Cholesterol (Direct Measure) 74 <=129 mg/dL 04/03/2023 11:23 PM EST [facility] [place]: LDL Cholesterol Reference Ranges (mg/dL): <70 Target level for high risk ASCVD patient <100 Optimal for general population 100-129 Near optimal for general population 130-159 Borderline high 160-189 High >=190 Very high Blood Venous blood specimen / Unknown Venipuncture / Unknown 04/03/2023 3:58 PM EST 04/03/2023 3:58 PM EST Melodie PARK LAB BLOOD ORDERABLES [facility] [address] [place] [address] * (ABNORMAL) LIPID PANEL WITH DIRECT LDL IF TG IS HIGH (04/03/2023 3:58 PM EST) Triglycerides 159 <=174 mg/dL 04/03/2023 11:05 PM EST [facility] [place] Comment: Triglyceride Reference Ranges (mg/dL): <150 Acceptable 150-174 Borderline high 175-499 High >=500 Very high Cholesterol 121 <200 mg/dL 04/03/2023 11:05 PM EST [facility] [place] Comment: Total Cholesterol Reference Ranges (mg/dL): <200 Desirable 200-239 Borderline high >=240 High HDL Cholesterol 28(L) >39 mg/dL 11:05 PM EST [facility] [place] Comment: HDL Cholesterol Reference Ranges (mg/dL): >=60 High (Desirable) <50 Low (Undesirable) For Females <40 Low (Undesirable) For Males Non-HDL Cholesterol 93 <=159 mg/dL 04/03/2023 11:05 PM EST [facility] [place] Comment: Non-HDL Cholesterol Reference Range (mg/dL): <100 Target level for high risk ASCVD patient <130 Optimal for general population 130-159 Near optimal for general population 160-189 Borderline High 190-219 High >=220 Very High Blood Venous blood specimen / Unknown Venipuncture / Unknown 04/03/2023 3:58 PM EST 04/03/2023 3:58 PM EST Melodie CABRALNP LAB BLOOD ORDERABLES [facility] [place] [address] [place] [address] * (ABNORMAL) HEMOGLOBIN A1C (04/03/2023 3:58 PM EST) Hemoglobin A1C 7.3(H) 4.0 - 5.6 % 04/03/2023 11:04 PM EST [facility] [place] Comment:The use of HbA1c to monitor glycemic status is based on normal hemoglobin and HbA composition. This test should not be used in patients with abnormal hemoglobin that affects the half life of the red blood cell or the in vivo glycation rates. Estimated Average Glucose 163(H) <126 mg/dL 04/03/2023 11:04 PM EST [facility] [place] Blood Venous blood specimen / Unknown Venipuncture / Unknown 04/03/2023 3:58 PM EST 04/03/2023 3:58 PM EST Melodie Payan [facility]AV[facility] LAB BLOOD ORDERABLES [facility] [place] [address] [place], [place] [id number] * (ABNORMAL) CBC (04/03/2023 3:58 PM EST) [facility] WBC 8.37 4.00 - 10.80 K/uL 04/03/2023 4:12 PM EST LABORATORY [place] 57-10 RBC 4.50 4.50 - 5.25 M/uL 04/03/2023 4:12 PM EST LABORATORY [place] 57-10 HGB 12.5(L) 14.0 - 16.8 g/dL 04/03/2023 4:12 PM EST LAB[facility]ATORY [place] 57-10 HCT 39.4(L) 40.0 - 48.4 % 04/03/2023 4:12 PM EST LAB[facility]ATORY [place] 57-10 MCV 87.6 82.0 - 99.5 fL 04/03/2023 4:12 PM EST LAB[facility]ATORY [place] 57-10 MCH 27.8 27.0 - 34.0 pg 04/03/2023 4:12 PM EST LAB[facility]ATORY [place] 57-10 MCHC 31.7 32.0 - 36.0 g/dL 04/03/2023 4:12 PM EST LAB[facility]ORY [place] 57-10 RDW 15.0 11.5 - 15.5 % 04/03/2023 4:12 PM EST LAB[facility]ATORY [place] 57-10 PLT 176 140 - 400 K/uL 04/03/2023 4:12 PM EST LAB[facility]ORY [place] 57-10 MPV 10.7 6.6 - 11.1 fL 04/03/2023 4:12 PM EST LABORATORY [place] 57-10 Blood Venous blood specimen / Unknown Venipuncture / Unknown 04/03/2023 3:58 PM EST 04/03/2023 3:58 PM EST Melodie PARK LAB BLOOD ORDERABLES LAB[facility]ATORY [place] 57-10 [address] [place] [address] * COMPREHENSIVE METABOLIC PANEL (04/03/2023 3:58 PM EST) BUN 17 6 - 20 mg/dL 04/03/2023 11:05 PM EST [facility] Creatinine 0.9 0.6 - 1.2 mg/dL 04/03/2023 11:05 PM EST [facility] Estimated Glomerular Filtration Rate 87 >=60 mL/min 04/03/2023 11:05 PM EST [facility] Comment:eGFR is calculated b ased on the CKD-EPI 2020 equation Sodium 141 135 - 146 mmol/L 04/03/2023 11:05 PM EST [facility] Potassium 4.4 3.5 - 5.1 mmol/L 04/03/2023 11:05 PM EST [facility] Chloride 101 98 - 107 mmol/L 04/03/2023 11:05 PM EST [facility] CO2 28 22 - 32 mmol/L 04/03/2023 11:05 PM EST [facility] Anion Gap 12 7 - 15 mmol/L 04/03/2023 11:05 PM EST [facility] Glucose 114 70 - 120 mg/dL 04/03/2023 11:05 PM EST [facility] Albumin 4.6 3.8 - 5.0 g/dL 04/03/2023 11:05 PM EST [facility] AST 20 10 - 50 U/L 04/03/2023 11:05 PM EST [facility] Alkaline Phosphatase 72 35 - 130 U/L 04/03/2023 11:05 PM EST [facility] Bilirubin, Total 0.4 <=1.2 mg/dL 04/03/2023 11:05 PM EST [facility] Calcium 9.5 8.4 - 10.2 mg/dL 04/03/2023 11:05 PM EST [facility] Protein 6.9 6.0 - 8.3 g/dL 04/03/2023 11:05 PM EST [facility] ALT 16 10 - 50 U/L 04/03/2023 11:05 PM EST [facility] Blood Venous blood specimen / Unknown Venipuncture / Unknown 04/03/2023 3:58 PM EST 04/03/2023 3:58 PM EST Melodie PARK LAB BLOOD ORDERABLES Performing Organization Address City/[facility]/ZIP Co de Phone Number [facility] [address] [place] [address] * TSH WITH FREE T4 IF INDICATED (04/03/2023 3:58 PM EST) TSH 3.39 0.27 - 4.20 uIU/mL 04/04/2023 12:07 AM EST [facility] Blood Venous blood specimen / Unknown Venipuncture / Unknown 04/03/2023 3:58 PM EST 04/03/2023 3:58 PM EST Melodie PARK LAB BLOOD ORDERABLES Performing Organization Address City/[facility]/ZIP Co de Phone Number [facility] [address] [place] [address] documented in this encounter Visit Diagnoses Diagnosis S/P AVR (aortic valve replacement) Heart valve replaced by other means HTN, goal below 140/90 Unspecified essential hypertension Type 2 diabetes mellitus with hemoglobin A1c goal of less than 8.0% (HCC) Hyperlipidemia, unspecified hyperlipidemia type Fatigue, unspecified type New onset atrial fibrillation (HCC) Atrial fibrillation documented in this encounter Advance Directives Latest Code Status on File Code Status Date Activated Date Inactivated Comments Full Code 10/28/2016 10:39 AM 11/01/2016 2:36 PM This o rder reflects the patients wishes and were consensually agreed upon. Care Teams Computer Operations Supervisor Relationship Specialty Start Date End Date Damien Villasenor DO [address] [place] [id number] PCP - General Family Medicine 01/13/22 documented as of this encounter
--- OUTSIDE RECORDS SUMMARY | 2023-06-12 15:16 | External Medical Summary | Summary of Care ---
Author Name Unknown Organization [facility] Address [address] [facility] [place] [address] Phone [phone] Care Team Providers Care Shine Worker Name Role Phone Damien Villasenor DO Primary Care Provider [phone]- [phone] Encounter Details Date Type Department Care Team (Late st Contact Info) Description 04/07/2023 Telephone Cardiology, [facility] [address] [facility] [place] [address] Melodie Payan CRNP [address] [facility] [place] [phone] Allergies No known active allergiesdocumented as of this encounter (statuses as of 04/09/2023) Medications Medication Sig Dispensed Refills Start Date [...] hemoglobin A1c goal of less than 8.0% ([facility]) E11.9 Use up to 4 times a [...] as of this encounter (statuses as of 04/09/2023) Active Problems Problem Noted Date Diagnosed Date 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 Aortic valve stenosis 11/01/20162018 DM type 2, goal: symptom mgmt 08/13/2016 05/23/2019 Overview: Duplicate. documented as of this encounter (statuses as of 04/09/2023) Immunizations Name Administration Dates Next Due COVID-19 [...] on file documented as of this encounter Plan of Treatment Upcoming Encounters Date Type Department Care Team (Late st Contact Info) Description 06/09/2023 2:30 PM EDT Cardiac Studies Cardiac Studies, [facility] [address] [facility] [place] [address] 06/23/2023 3:30 PM EDT Office Visit Cardiology, [facility] [address] [facility] [place] [address] Melodie Payan CRNP [address] [place] [phone] Health Maintenance Due Date Last Done Comments Pneumococcal Vaccine: 65+ Years (1 - PCV) 1946 Hepatitis B (1 of 3 - Risk 3-dose series) 2002 Depression Screening 11/24/2019 11/23/2018 Diabetic Foot Exam 11/24/2019 11/23/2018, 10/05/2017 Zoster Vaccines (2 of 2) 09/24/2020 07/30/2020 Albumin/Creatinine Ratio 11/08/2020 11/09/2019 B-12 11/08/2020 11/09/2019, 04/16/2018 Diabetic Eye Exam 01/24/2022 01/24/2021, , 12/19/2020, Additional history exists COVID-19 Vaccine ( - season) 2022 05/22/2020, 04/24/2020 Influenza Vaccine (FLU [...] encounter Medical Devices Implanted Type Area Road Traffic Controller Device Identifier Shelf Expiration Date Model / Serial / Lot Boyd Intuity Valve Implanted:Qty: 1 on 10/28/2016 by Richie Snyder MD at OR [facility] [place] N/A: Heart [employer] 07/11/2020 [id number] / [id number] / Description:25mm Intuity Michelle ve No Charge Item Per Denise Connolly documented as of this encounter Advance Directives Latest Code Status on File Code Status Date Activated Date Inactivated Comments Full Code 10/28/2016 10:39 AM 11/01/2016 2:36 PM This o rder reflects the patients wishes and were consensually agreed upon. Care Teams Shine Worker Relationship Specialty Start Date End Date Damien Villasenor DO [address] [place] [id number] PCP - General Family Medicine 01/13/22 documented as of this encounter
--- OUTSIDE RECORDS SUMMARY | 2023-06-12 15:16 | External Medical Summary | Summary of Care ---
Author Name Unknown Organization [facility] Address [address] [facility] [place] [address] Phone [phone] Care Team Providers Care Rock Room Worker Name Role Phone Damien Villasenor DO Primary Care Provider [phone] Reason for Referral * Precert (Within 10 days (routine)) - Pending Review Specialty Diagnoses / Procedures Referred By Paulina t Referred To Contact Cardiac Studies Diagnoses S/P AVR (aortic valve replacement) HTN, goal below 140/90 Type 2 diabetes mellitus with hemoglobin A1c goal of less than 8.0% (HCC) Hyperlipidemia, unspecified hyperlipidemia type Fatigue, unspecified type New onset atrial fibrillation (HCC) Procedures ECHO, COMPLETE (2D), TRANS-THORACIC Melodie Payan CRNP [address] [place] [address] Referral ID Status Reason Start Date Expiration Date Visits Requested Visits Authorized [id number] Pending Review Precert 04/03/2023 1 1 Reason for Visit * Reason Comments Follow Up Encounter Details Date Type Department Care Team (Late st Contact Info) Description 04/03/2023 3:00 PM EST Office Visit Cardiology, [address] [place] [address] Melodie Payan CRNP [address] [place] [address] S/P AVR (aortic valve replacement)*; HTN, goal below 140/90; Type 2 diabetes [...] Problems Problem Noted Date Diagnosed Date Other intermediate frame tender (current) drug therapy 9 Type 2 diabetes [...] 0 02/23/1955 - 02/24/1996 Smokeless Tobacco: Never Tobacco Cessation:Counseling Given: Not Answered Alcohol Use Standard Drinks/Week Comments Yes 0 [...] on file documented as of this encounter Last Filed Vital Signs Vital Sign Reading Time Taken Comments Blood Pressure 152/90 04/03/2023 2:55 PM EST Pulse 86 04/03/2023 2:55 PM EST Temperature - - Respiratory Rate 16 04/03/2023 2:55 PM EST Oxygen Saturation - - Inhaled Oxygen Concentration - - Weight 101.7 kg (224 lb 3.2 oz) 04/03/2023 2:55 PM EST Height - - Body Mass Index 32.17 05/10/2020 3:33 PM EDT documented in this encounter Patient Instructions * Patient Instructions* Melodie Payan CRNP - 04/03/2023 3:28 PM EST Start Apixaban 5 mg twice per day PACE/PACENET Prescription Assistance Program (Program of All-Inclusive Care for the Elderly) [facility] prescription assistance programs for older adults offer low-cost prescription medication to qualified residents, age 65 and older. This is a free program. There is no cost to apply. Call to apply. If you do not qualify, please reach out to our office so we can investigate other options for you. PACE Income Limits: Single: $33,500 : $41,500 documented in this encounter Progress Notes * Melodie Payan CRNP - 04/03/2023 3:01 PM EST Subjective William Smith is a 82 year old male. Chief Complaint Patient presents with Follow Up Cardiac Problems: s/p TAVR 2017 DM II HTN HLD COVID 01/2023 HPI: 82 year old male presents for routine cardiology follow up. Last seen in the clinic 1 year ago. Feeling well since their last visit with no acute concerns today. Occasional chest pains, maybe every few months. Lasting maybe a few minutes and resolves. Not sure what causes it to start. Was taking Januvia, which caused GI upset. He stopped this a few days ago and will discuss this with his PCP next week. Denies SOB, palpitations, dizziness, syncope, edema, orthopnea and PND. No change in activity tolerance. Reports compliance with medications without any untoward side effects, or difficulty with affordability. PMH: Patient Active Problem List Diagnosis Code Aortic valve stenosis I35.0 S/P AVR (aortic valve replacement) Z95.2 Obesity, Class I, BMI 30.0-34.9 (see actual BMI) E66.9 Insomnia G47.00 HTN, goal below 140/90 I10 Type 2 diabetes mellitus with hemoglobin A1c goal of less than 8.0% ([facility]) E11.9 Other chcf (current) drug therapy Z79.899 Current Outpatient Medications Medication Sig Dispense Refill Aspirin 81 MG Tablet Take 1 Tab by mouth daily. 90 Tab 3 Multiple Vitamin (MULTI VITAMIN DAILY) TABS Take 1 Tablet by mouth daily. Metoprolol Tartrate 25 MG Oral Tablet (Lopressor) Take 1 Tab by mouth every 12 hours. 180 Tab 1 metFORMIN HCl ER 500 MG Oral Tablet Extended Release 24 Hour (Glucophage XR) Take 2 tablets by mouth once daily (Patient taking differently: Take 2 Tablets by mouth in the morning and 2 Tablets before bedtime.) 180 Tab 0 Levothyroxine Sodium 25 MCG Oral Tablet (Levoxyl) Take 1 Tablet by mouth in the morning. Lisinopril 20 MG Oral Tablet (Prinivil) Take 1 Tablet by mouth in the morning. 90 Tablet 0 PreserVision AREDS 2+Multi Vit Oral Capsule Take by mouth 2 times a day. Zinc 30 MG Oral Tablet Take by mouth daily. Airborne Oral Tablet Chewable Take by mouth daily. Rosuvastatin Calcium 10 MG Oral Tablet (Crestor) Take 1 Tablet by mouth at bedtime. Amoxicillin 500 MG Tablet Take 4 tablets 30-60 minutes prior to dental procedures 4 Tab 11 Glucose Blood (EASY TOUCH TEST) STRP E11.9 Use up to 4 times a day 100 Box Dosing Unit 11 EASY TOUCH LANCETS 33G/TWIST MISC E11.9 Use up to 4 times a day 100 Each 11 Psyllium 28.3 % Oral Powder Take by mouth. Sildenafil Citrate 50 MG Oral Tablet TAKE ONE CAPSULE BY MOUTH NEEDED DIRECTED Strength: 50 mg 10 Tablet 3 No current facility-administered medications for this visit. No past medical history on file. Past Surgical History: Procedure Laterality Date REPLACEMENT AORTIC VALVE, BYPASS WITH PROSTHETIC VALVE N/A 10/28/2016 REPLACEMENT AORTIC VALVE, BYPASS WITH PROSTHETIC VALVE performed by Richie Snyder MD at OR [facility] Review of patient's allergies indicates: No Known Allergies No family history on file. No family status information on file. Social History Socioeconomic History Marital status: Spouse name: Not on file Number of children: Not on file Years of education: Not on file Highest education level: Not on file Occupational History Not on file Tobacco Use Smoking status: Former Packs/day: 1 Types: Cigarettes Start date: 02/23/1957 Quit date: 02/24/1996 Years since quittin.1 Smokeless tobacco: Never Vaping Use Vaping Use: Never used Substance and Sexual Activity Alcohol use: Yes Comment: rare Drug use: No Sexual activity: Not on file Other Topics Concern Not on file Social History Narrative Not on file Social Determinants of Health Financial Resource Strain: Not on file Food Insecurity: No Food Insecurity (11/23/2018) Hunger Vital Sign Worried About Running Out of Food in the Last Year: Never true Ran Out of Food in the Last Year: Never true Transportation Needs: Not on file Physical Activity: Not on file Stress: Not on file Social Connections: Not on file Intimate Partner Violence: Not on file Housing Stability: Not on file Review of Systems Constitutional: Negative for activity change, fatigue and unexpected weight change. Eyes: Negative for visual disturbance. Respiratory: Negative for shortness of breath and wheezing. Cardiovascular: Positive for chest pain. Negative for palpitations and leg swelling. Gastrointestinal: Negative for blood in stool, constipation, diarrhea, nausea and vomiting. Genitourinary: Negative for hematuria. Musculoskeletal: Negative for arthralgias and gait problem. Skin: Negative for wound. Neurological: Negative for dizziness and syncope. Objective BP 152/90 (BP Site: Left Arm, BP Position: Sitting, BP Cuff Size: Large) | Pulse 94 | Resp 16 | Wt 101.7 kg (224 lb 3.2 oz) | BMI 32.17 kg/m | BSA 2.24 m Physical Exam Vitals and nursing note reviewed. Constitutional: General: He is awake. He is not in acute distress. Appearance: Normal appearance. He is well-developed. He is not ill-appearing. HENT: Head: Normocephalic and atraumatic. Eyes: General: No scleral icterus. Extraocular Movements: Extraocular movements intact. Conjunctiva/sclera: Conjunctivae normal. Pupils: Pupils are equal, round, and reactive to light. Neck: Thyroid: No thyromegaly. Vascular: No carotid bruit or JVD. Cardiovascular: Rate and Rhythm: Normal rate. Pulses: Normal pulses. Carotid pulses are 2+ on the right side and 2+ on the left side. Radial pulses are 2+ on the right side and 2+ on the left side. Posterior tibial pulses are 2+ on the right side and 2+ on the left side. Heart sounds: Normal heart sounds, S1 normal and S2 normal. No murmur heard. Pulmonary: Effort: Pulmonary effort is normal. No respiratory distress. Breath sounds: Normal breath sounds. No wheezing, rhonchi or rales. Abdominal: General: Bowel sounds are normal. There is no distension. Palpations: Abdomen is soft. There is no mass. Tenderness: There is no abdominal tenderness. Musculoskeletal: General: No swelling. Cervical back: Neck supple. Right lower leg: No edema. Left lower leg: No edema. Skin: General: Skin is warm and dry. Capillary Refill: Capillary refill takes less than 2 seconds. Findings: No rash or wound. Neurological: General: No focal deficit present. Mental Status: He is alert and oriented to person, place, and time. Psychiatric: Attention and Perception: Attention and perception normal. Behavior: Behavior is cooperative. Judgment: Judgment normal. Results Labs & Imaging Reviewed Below: ECG Today A Fib PVCs RBBB 95 bpm QTc 495 ms 01/09/21 NSR 69 bpm QTc 405 ms 01/09/20 NSR 72 bpm QTc 409 ms 06/08/18 SB 58 bpm QTc 376 ms 10/28/2016 NSR 73 bpm QTc 469 ms Echocardiograms 06/08/18 The examination is adequate to evaluate the referral indication. The LV wall thickness is moderately increased (concentric). The left ventricular wall motion is normal. The qualitative LV ejection fraction is 55-59% (normal). The left ventricular diastolic function is moderately abnormal (grade II). There is an aortic valve bioprosthetic present. The aortic valve prosthesis systolic gradients are normal for this type prosthesis. Significant aortic valve prosthesis regurgitation is absent. The aortic root diameter is normal. The proximal ascending thoracic aorta is not visualized well enough to allow measurement Labs Latest Reference Range & Units 12/28/20 11:25 09/11/21 09:00 CO2-OUTSIDE LAB 22.0 - 30.0 mmol/L 27 (E) 25 (E) TRIGLYCERIDES-OUTSIDE LAB 35 - 149 mg/dL 194 (H) (E) 221 (H) (E) HDL-OUTSIDE LAB mg/dL 29 (E) 29 (E) LDL CHOLESTEROL-OUTSIDE LAB mg/dL 115 (E) 119 (E) SODIUM-OUTSIDE LAB 135 - 145 mmol/L 138 (E) 138 (E) POTASSIUM-OUTSIDE LAB 3.6 - 5.0 mmol/L 4.7 (E) 4.7 (E) CHLORIDE-OUTSIDE LAB 98 - 107 mmol/L 100 (E) 103 (E) BUN-OUTSIDE LAB 9 - 20 mg/dL 17 (E) 21 (H) (E) CREATININE-OUTSIDE LAB 0.8 - 1.5 mg/dL 1.03 (E) 1.15 (E) EGFR-OUTSIDE LAB >59 mL/MIN 74 (E) 65 (E) ANION GAP-OUTSIDE LAB 10 - 20.0 mmol/L 16 (E) 15 (E) GLUCOSE-OUTSIDE LAB 70 - 99 mg/dL 169 (H) (E) 189 (H) (E) CALCIUM-OUTSIDE LAB 8.4 - 10.2 mg/dL 9.4 (E) 9.6 (E) HEMOGLOBIN, H6T-FPZBSTT LAB 4.3 - 7.2 % 8.0 (H) (E) 7.9 (H) (E) ALT-OUTSIDE LAB 21 - 72 U/L 24 (E) 24 (E) Impression New Onset A Fib, [id number] 4 (age, DM II, HTN) PVCs s/p TAVR 2016 DM II HTN HLD Plan: -HR and BP well controlled -ECG completed today indicates new onset a fib with PVCs -no recent labs for review, he reported that he is due for updated blood work and is seeing his PCPnext week -reviewed cardiac conduction system and changes that occur with atrial fibrillation -discussed risk of thromboembolism with this atrial fibrillation in the role of therapeutic anticoagulation -I have asked him to get updated lab work after the visit today for further evaluation -would also like to place him on apixaban, historically creatinine has been less than 1.5 so I suspect he will need the 5 mg dose however I we will review his labs once completed and make adjustmentsif necessary -given the new dysrhythmia would also recommend a Zio to determine heart rate and rhythm management -recommend updated echocardiogram as well for further evaluation -does not sound that he is having too many symptoms in regard to the AFib so we will make no adjustments to his other medications -can review rate versus rhythm strategy for management of the a fib based on additional informationobtained from a Zio in the echocardiogram -continue lisinopril, rosuvastatin, metoprolol, and ASA -Educated patient on caution with change in positions to minimize symptomatic orthostatic hypotension -Discussed importance of diet & exercise with the patient. -Discussed with patient subtle changes in how they are feeling or completing daily activities to contact us sooner; don't wait days or weeks. DISPOSITION: Follow up after Zio and Echo (2-3 months) or if symptoms worsen/fail to improve. All questions were answered to the patients satisfaction. Patient advised to report to ED with any and all emergencies. The patient agrees to the above plan and will call with additional questions or concerns. I spent a total of 46 minutes on the date of service in preparation, delivery, and documentation ofthe care provided to William Smith excluding any time spent in the performance of separately billed services. XAVIER Al[facility] Cardiology, [address] [place] [address] This chart was completed in part utilizing [employer] Speech Voice Recognition Software. Grammatical errors, random word insertions, pronoun errors, and incomplete sentences are an occasional consequence of this system due to software limitations, ambient noise, and hardware issues. Any formal questions or concerns about the content, text, or information contained within the body of this dictation should be directly addressed to the provider for clarification. documented in this encounter Procedure Notes * Noman Macedo DO - 04/03/2023 3:08 PM ESTAssociated Order(s): EKG REASON FOR STUDY: yearly recheck CONCLUSIONS: Atrial fibrillation with premature ventricular or aberrantly conducted complexes Right bundle branch block Abnormal ECG When compared with ECG of 09-JAN-2021 15:37, Atrial fibrillation has replaced Sinus rhythm Right bundle branch block is now Present Ventricular Rate: 95 Atrial Rate: 102 QRS Duration: 146 QT/QTc: 394/495 ms P-R-T [place]: 0 : 100 : -5 degrees documented in this encounter Nursing Notes * Gloria Hernandez CMA - 04/03/2023 2:49 PM EST Examination Room: 12 Name: William Smith Date of : (1940). Reason for Visit: overdue f/u Interim Hospitalization(s): none Problems/Concerns: Fatigue Chest Pain/SOB: Occasional L-sided CP, comes and goes within mins. Not related to activity/exertion. Denies unusual SOB. [facility] Discussed: Not applicable My [facility] is a way you can talk to your provider online through e-mail. Would you like to sign up? I can activate it for you? ALREADY ACTIVE Patient was instructed to not get up on the exam table until directed and assisted by their provider; patient is to remain seated in the chair/ wheelchair/ exam table for fall prevention and safety reasons. Patient is aware to have assistance to step down off exam table with personnel. Patient voiced full comprehension of instructions. documented in this encounter Plan of Treatment Upcoming Encounters Date Type Department Care Team (Late st Contact Info) Description 06/09/2023 2:30 PM EDT Cardiac Studies Cardiac Studies, [facility] [address] [facility] [address] [place] [address] 06/23/2023 3:30 PM EDT Office Visit Cardiology, [facility] [address] [facility] [address] [place] [address] Melodie Payan CRNP [address] [place] [phone] Scheduled Orders Name Type Priority Associated Diagnoses Orde r Schedule EXTERNAL EKG 8 TO 15 DAYS Holter Routine S/P AVR (aortic valve replacement) HTN, goal below 140/90 Type 2 diabetes mellitus with hemoglobin A1c goal of less than 8.0% (HCC) Hyperlipidemia, unspecified hyperlipidemia type Fatigue, unspecified type New onset atrial fibrillation (HCC) Expected: 04/03/2023 (Approximate), Expires: 04/03/2024 ECHO, COMPLETE (2D), TRANS-THORACIC Echocardiology Routine S/P AVR (aortic valve replacement) HTN, goal below 140/90 Type 2 diabetes mellitus with hemoglobin A1c goal of less than 8.0% (HCC) Hyperlipidemia, unspecified hyperlipidemia type Fatigue, unspecified type New onset atrial fibrillation (HCC) Expected: 04/03/2023, Expires: 05/01/2025 Health Maintenance Due Date Last Done Comments [...] this encounter Medical Devices Implanted Type Area Cloth Weaver Device Identifier Shelf Expiration Date Model / Serial / Lot Boyd Intuity Valve Implanted:Qty: 1 on 10/28/2016 by Richie Snyder MD at OR [facility] N/A: Heart [employer] 07/11/2020 [id number] / [id number] / Description:25mm Intuity Michelle ve No Charge Item Per Denise Connolly documented as of this encounter Procedures Procedure Name Priority Date/Time Associated Diagnosis Comments WI ECG ROUTINE ECG W/LEAST 12 LDS W/I&R Routine 04/03/2023 3:08 PM EST S/P AVR (aortic valve replacement) HTN, goal below 140/90 documented in this encounter Results * (ABNORMAL) LIPID PANEL WITH DIRECT LDL IF TG IS HIGH (04/03/2023 3:58 PM EST) Triglycerides 159 <=174 mg/dL 04/03/2023 11:05 PM EST LABORATORY [facility] Comment: Triglyceride Reference Ranges (mg/dL): <150 Acceptable 150-174 Borderline high 175-499 High >=500 Very high Cholesterol 121 <200 mg/dL 04/03/2023 11:05 PM EST LABORATORY [facility] Comment: Total Cholesterol Reference Ranges (mg/dL): <200 Desirable 200-239 Borderline high >=240 High HDL Cholesterol 28(L) >39 mg/dL 11:05 PM EST LABORATORY [facility] Comment: HDL Cholesterol Reference Ranges (mg/dL): >=60 High (Desirable) <50 Low (Undesirable) For Females <40 Low (Undesirable) For Males Non-HDL Cholesterol 93 <=159 mg/dL 04/03/2023 11:05 PM EST LABORATORY [facility] Comment: Non-HDL Cholesterol Reference Range (mg/dL): <100 Target level for high risk ASCVD patient <130 Optimal for general population 130-159 Near optimal for general population 160-189 Borderline High 190-219 High >=220 Very High Blood Venous blood specimen / Unknown Venipuncture / Unknown 04/03/2023 3:58 PM EST 04/03/2023 3:58 PM EST Melodie PARK LAB BLOOD ORDERABLES Performing Organization Address City/[facility] Co de Phone Number LABORATORY [facility] [address] [place] [address] * (ABNORMAL) HEMOGLOBIN A1C (04/03/2023 3:58 PM EST) Hemoglobin A1C 7.3(H) 4.0 - 5.6 % 04/03/2023 11:04 PM EST LABORATORY [facility] Comment:The use of HbA1c to monitor glycemic status is based on normal hemoglobin and HbA composition. This test should not be used in patients with abnormal hemoglobin that affects the half life of the red blood cell or the in vivo glycation rates. Estimated Average Glucose 163(H) <126 mg/dL 04/03/2023 11:04 PM EST LABORATORY [facility] Blood Venous blood specimen / Unknown Venipuncture / Unknown 04/03/2023 3:58 PM EST 04/03/2023 3:58 PM EST Melodie PARK LAB BLOOD ORDERABLES LAB[facility] [address] [place], [place] [address] * (ABNORMAL) CBC (04/03/2023 3:58 PM EST) WBC 8.37 4.00 - 10.80 K/uL 04/03/2023 [...] EST Melodie PARK LAB BLOOD ORDERABLES LAB[facility]ATORY [place] [address] [facility] [place] [address] * COMPREHENSIVE METABOLIC PANEL (04/03/2023 3:58 PM [...] EST Melodie PARK LAB BLOOD ORDERABLES LABORATORY [facility] [address] [place] [address] * TSH WITH FREE T4 IF INDICATED (04/03/2023 3:58 PM EST) TSH 3.39 0.27 - 4.20 uIU/mL 04/04/2023 12:07 AM EST LABORATORY [facility] Blood Venous blood specimen / Unknown Venipuncture / Unknown 04/03/2023 3:58 PM EST 04/03/2023 3:58 PM EST Melodie PARK LAB BLOOD ORDERABLES Performing Organization Address [facility] de Phone Number LABORATORY [facility] [address] [place] [address] * EKG (04/03/2023 3:08 PM EST) 04/03/2023 3:08 PM EST Narrative Procedure Note Noman Macedo, - 04/03/2023 3:08 PM EST REASON FOR STUDY: yearly recheck CONCLUSIONS: Atrial fibrillation with premature ventricular or aberrantly conductedcomplexes Right bundle branch block Abnormal ECG When compared with ECG of 09-JAN-2021 15:37, Atrial fibrillation has replaced Sinus rhythm Right bundle branch block is now Present Ventricular Rate: 95 Atrial Rate: 102 QRS Duration: 146 QT/QTc: 394/495 ms P-R-T [place]: 0 : 100 : -5 degrees Melodie PARK EKG Performing Organization Address [facility] Co de Phone Number [facility] documented in this encounter Visit Diagnoses Diagnosis [...] and were consensually agreed upon. Care Teams Rock Room Worker Relationship Specialty Start Date End Date Damien Villasenor DO [address] [place] [address] PCP - General Family Medicine 01/13/22 documented as of this encounter"
--- OUTSIDE RECORDS SUMMARY | 2023-06-12 15:17 | External Medical Summary ---
Author Name Unknown Address Unknown Organization [id number][facility] [address] [place] [address] Laboratory Report Ordering Provider Test Date Status HARDIK TRAVIS 04/03/2023 15:58:12 Final Observation Date Value Abnormality Reference (Units ) Status WBC, Total 04/03/2023 15:58:12 8.37 4.00-10.8 0 (K/uL) Final RBC 04/03/2023 15:58:12 4.50 4.50-5.25 (M/uL) Final Hemoglobin 04/03/2023 15:58:12 12.5 Below low normal 14 .0-16.8 (g/dL) Final HCT 04/03/2023 15:58:12 39.4 Below low normal 40. 0-48.4 (%) Final MCV 04/03/2023 15:58:12 87.6 82.0-99.5 (fL) Final MCH 04/03/2023 15:58:12 27.8 27.0-34.0 (pg) Final MCHC 04/03/2023 15:58:12 31.7 32.0-36.0 (g/dL) Final RDW 04/03/2023 15:58:12 15.0 11.5-15.5 (%) Final Platelets 04/03/2023 15:58:12 176 140-400 (K /uL) Final MPV 04/03/2023 15:58:12 10.7 6.6-11.1 ( fL) Final Performing Location LABORATORY [facility] [place] [address] [place] [address]
--- OUTSIDE RECORDS SUMMARY | 2023-06-12 15:17 | External Medical Summary ---
Author Name Unknown Address Unknown Organization K01:LABORATORY [facility] - [address] [place] [address] Laboratory Report Ordering Provider Test Date Status HARDIK TRAVIS 04/03/2023 15:58:12 Final Observation Date Value Abnormality Reference (Units ) Status TSH 04/03/2023 15:58:12 3.39 0.27-4.20 (uIU/mL) Final Performing Location [facility] - [address] [place] [address]
--- OUTSIDE RECORDS SUMMARY | 2023-06-12 15:17 | External Medical Summary ---
Author Name Unknown Address Unknown Organization K01:[facility]ORY [facility] - [address] [place] [address] Laboratory Report Ordering Provider Test Date Status HARDIK TRAVIS 04/03/2023 15:58:12 Final Observation Date Value Abnormality Reference (Units ) Status LDL, (direct) 04/03/2023 15:58:12 74 <=129 (mg/dL) Final LDL Cholesterol Reference Ra nges (mg/dL):
<70 Target level for high risk ASCVD patient
<100 Optimal for general population
100-129 Near optimal for general population
130-159 Borderline high
160-189 High
>=190 Very high Performing Location LAB[facility]ATORY [facility] - [address] [place] [address]
--- OUTSIDE RECORDS SUMMARY | 2023-06-12 15:17 | External Medical Summary ---
Author Name Unknown Address Unknown Organization [id number]:LABORATORY [facility] [place] - [address] [place] [address] Laboratory Report Ordering Provider Test Date Status HARDIK TRAVIS 04/03/2023 15:58:12 Final Observation Date Value Abnormality Reference (Units ) Status BUN 04/03/2023 15:58:12 17 6-20 (mg/dL) Final Creatinine 04/03/2023 15:58:12 0.9 0.6-1.2 (mg/dL) Final Glomerular filtration rate/1.73 sq M.predicted [Volume Rate/Area] in Serum, Plasma or Blood by Creatinine-based formula (CKD-EPI) 04/03/2023 15:58:12 87 >=60 (mL/min) Final eGFR is calculated based on the CKD-EPI 2020 equation SODIUM 04/03/2023 15:58:12 141 135-146 (m mol/L) Final Potassium 04/03/2023 15:58:12 4.4 3.5-5.1 (m mol/L) Final Cl 04/03/2023 15:58:12 101 98-107 (mm ol/L) Final CO2 04/03/2023 15:58:12 28 22-32 (mmo l/L) Final Anion gap 04/03/2023 15:58:12 12 7-15 (mmol /L) Final Glucose 04/03/2023 15:58:12 114 70-120 (mg /dL) Final Albumin 04/03/2023 15:58:12 4.6 3.8-5.0 (g /dL) Final AST (Aspartate aminotransferase) 04/03/2023 15:58:12 20 10-50 (U/L) Final Alk Phos 04/03/2023 15:58:12 72 35-130 (U/ L) Final Bilirubin, Total 04/03/2023 15:58:12 0.4 <=1 .2 (mg/dL) Final Calcium 04/03/2023 15:58:12 9.5 8.4-10.2 ( mg/dL) Final Protein 04/03/2023 15:58:12 6.9 6.0-8.3 (g /dL) Final ALT (Alanine aminotransferase) 04/03/2023 15:58:12 16 10-50 (U/L) Final Performing Location LABORATORY [facility] - [facility] [address] [facility] [address]
--- OUTSIDE RECORDS SUMMARY | 2023-06-12 15:17 | External Medical Summary ---
Author Name Unknown Address Unknown Organization [id number]:LABORATORY [facility] [place] - [address] [place] [address] Laboratory Report Ordering Provider Test Date Status HARDIK TRAVIS 04/03/2023 15:58:12 Final Observation Date Value Abnormality Reference (Units ) Status Triglyceride 04/03/2023 15:58:12 159 <=174 ( mg/dL) Final Triglyceride Reference Range s (mg/dL):
<150 Acceptable
150-174 Borderline high
175-499 High
>=500 Very high Cholesterol 04/03/2023 15:58:12 121 <200 (mg /dL) Final Total Cholesterol Reference Ranges (mg/dL):
<200 Desirable
200-239 Borderline high
>=240 High HDL 04/03/2023 15:58:12 28 Below low normal >39 (mg/dL) Final HDL Cholesterol Reference Ra nges (mg/dL):
>=60 High (Desirable)
<50 Low (Undesirable) For Females
<40 Low (Undesirable) For Males NON-HDL CHOLESTEROL 04/03/2023 15:58:12 93 <=159 (mg/dL) Final Non-HDL Cholesterol Referenc e Range (mg/dL):
<100 Target level for high risk ASCVD patient
<130 Optimal for general population
130-159 Near optimal for general population
160-189 Borderline High
190-219 High
>=220 Very High Performing Location LABORATORY [facility] - [address] [place] [address]
--- OUTSIDE RECORDS SUMMARY | 2023-06-12 15:17 | External Medical Summary ---
Author Name Unknown Address Unknown Organization K01:[facility]ATORY [facility] [place] - [address] [facility] [address] Laboratory Report Ordering Provider Test Date Status HARDIK TRAVIS 04/03/2023 15:58:12 Final Observation Date Value Abnormality Reference (Units ) Status HbA1C 04/03/2023 15:58:12 7.3 Above high normal 4. 0-5.6 (%) Final The use of HbA1c to monitor glycemic status is based on normal hemoglobin and HbA composition. This test should not be used in patients with abnormal hemoglobin that affects the half life of the red blood cell or the in vivo glycation rates. Glucose, estimated average 04/03/2023 15:58:12 163 Above high normal <126 (mg/dL) Alok tirado Performing Location [facility] [place] - [address] [facility] [address]
--- OUTSIDE RECORDS SUMMARY | 2023-06-12 15:17 | External Medical Summary | Summary of Care ---
Author Name Unknown Organization [facility] Address [address] [place] [address] Phone [phone] Care Team Providers Care Photographer Motion Picture Name Role Phone Abilio Villasenorjose alberto Warner Primary Care Provider [phone] Reason for Visit * Reason Comments Outpatient Testing Encounter Details Date Type Department Care Team (Late st Contact Info) Description 04/03/2023 4:20 PM EST Laboratory Laboratory, [facility] [address] [place] [id number] [facility] [address] [place] [address] S/P AVR (aortic valve replacement); HTN, goal below 140/90; Type 2 diabetes mellitus with hemoglobin A1c goal of less than 8.0% (HCC); Hyperlipidemia, unspecified hyperlipidemia type; Fatigue, unspecified type; New onset atrial fibrillation (HCC) Allergies No known active allergiesdocumented as of this encounter (statuses as of 04/03/2023) Medications Medication Sig Dispensed Refills Start Date [...] hemoglobin A1c goal of less than 8.0% ([facility]) E11.9 Use up to 4 times a day [address] 11 12/24/2017 Active EASY TOUCH LANCETS 33G/TWIST MISCIndications:T ype 2 diabetes mellitus with hemoglobin A1c goal of less than 8.0% (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 Aortic valve stenosis 11/01/20162018 DM type 2, goal: symptom mgmt 08/13/2016 05/23/2019 Overview: Duplicate. documented as of this encounter (statuses as of 04/03/2023) Immunizations Name Administration Dates Next Due COVID-19 [...] 2:30 PM EDT Cardiac Studies Cardiac Studies, [facility] [address] [facility] [place] [address] 06/23/2023 3:30 PM EDT Office Visit Cardiology, [facility] [address] [facility] [place] [address] Melodie Payan CRNP [address] [place] [address] [place] [phone] Pending Results Name Type Priority Associated Diagnoses Date /Time TSH WITH FREE T4 IF INDICATED Lab Routine S/P AVR (aortic valve replacement) HTN, goal below 140/90 Type 2 diabetes mellitus with hemoglobin A1c goal of less than 8.0% (HCC) Hyperlipidemia, unspecified hyperlipidemia type Fatigue, unspecified type New onset atrial fibrillation (HCC) 04/03/2023 3:58 PM EST COMPREHENSIVE METABOLIC PANEL Lab Routine S/P AVR (aortic valve replacement) HTN, goal below 140/90 Type 2 diabetes mellitus with hemoglobin A1c goal of less than 8.0% (HCC) Hyperlipidemia, unspecified hyperlipidemia type Fatigue, unspecified type New onset atrial fibrillation (HCC) 04/03/2023 3:58 PM EST HEMOGLOBIN A1C Lab Routine S/P AVR (aortic valve replacement) HTN, goal below 140/90 Type 2 diabetes mellitus with hemoglobin A1c goal of less than 8.0% (HCC) Hyperlipidemia, unspecified hyperlipidemia type Fatigue, unspecified type New onset atrial fibrillation (HCC) 04/03/2023 3:58 PM EST LIPID PANEL WITH DIRECT LDL IF TG IS HIGH Lab Routine S/P AVR (aortic valve replacement) HTN, goal below 140/90 Type 2 diabetes mellitus with hemoglobin A1c goal of less than 8.0% (HCC) Hyperlipidemia, unspecified hyperlipidemia type Fatigue, unspecified type New onset atrial fibrillation (HCC) 04/03/2023 3:58 PM EST Health Maintenance Due Date Last Done Comments Pneumococcal Vaccine: 65+ Years (1 - PCV) 1946 Hepatitis B (1 of 3 - Risk 3-dose series) 2002 Depression Screening 11/24/2019 11/23/2018 Diabetic Foot Exam 11/24/2019 11/23/2018, 10/05/2017 Zoster Vaccines (2 of 2) 09/24/2020 07/30/2020 Albumin/Creatinine Ratio 11/08/2020 11/09/2019 B-12 11/08/2020 11/09/2019, 04/16/2018 TSH 11/08/2020 11/09/2019, 10/15/2016 Diabetic Eye Exam 01/24/2022 01/24/2021, , 12/19/2020, Additional history exists HbA1c 03/14/2022 09/11/2021, 1106/2020, 11/09/2019, Additional history exists GFR 09/11/2022 09/11/2021, 08/24, 06/10/2021, Additional history exists COVID-19 Vaccine (3 - 2022- season) 2022 05/22/2020, 04/24/2020 Influenza Vaccine (FLU shot) (#1) 2022 12/28/2020, 12/28/2020, 11/11/2019, Additional history exists DTaP,Tdap,and Td Vaccines (2 - Td or Tdap) 03/26/2025 03/26/2015 GARDASIL-HPV IMMUNIZATION SERIES Aged Out No longer eligible based on patient's age to complete this topic MENINGOCOCCAL (MENACTRA/MENVEO) Aged Out No longer eligible based on patient's age to complete this topic documented as of this encounter Medical Devices Implanted Type Area Hand Cutter Apprentice Device Identifier Shelf Expiration Date Model / Serial / Lot Boyd Intuity Valve Implanted:Qty: 1 on 10/28/2016 by Richie Snyder MD at OR [facility] [place] N/A: Heart Imaging [employer] 07/11/2020 [id number] / [id number] / Description:25mm Intuity Michelle ve No Charge Item Per Denise Connolly documented as of this encounter Procedures Procedure Name Priority Date/Time Associated Diagnosis Comments CBC Routine 04/03/2023 3:58 PM EST S/P AVR (aortic valve replacement) HTN, goal below 140/90 Type 2 diabetes mellitus with hemoglobin A1c goal of less than 8.0% (HCC) Hyperlipidemia, unspecified hyperlipidemia type Fatigue, unspecified type New onset atrial fibrillation (HCC) documented in this encounter Results * (ABNORMAL) CBC (04/03/2023 3:58 PM EST) [...] ORDERABLES LABORATORY [place] [facility] [address] [place] [address] documented in this encounter Visit Diagnoses Diagnosis [...] and were consensually agreed upon. Care Teams Photographer Motion Picture Relationship Specialty Start Date End Date Damien Villasenor DO [address] [place] [id number] PCP - General Family Medicine 01/13/22 documented as of this encounter
--- OUTSIDE RECORDS SUMMARY | 2023-06-12 15:17 | External Medical Summary | Summary of Care ---
Author Name Unknown Organization [facility] Address [address] [place] [facility] [place] [place] [address] Phone [phone] Care Team Providers Care Pipe Manufacture Supervisor Name Role Phone Damien Villasenor DO Primary Care Provider [phone] Reason for Visit * Reason Comments eRx-Medication Refill Encounter Details Date Type Department Care Team (Late st Contact Info) Description 02/28/2023 Refill Family Practice [facility] [address] [place] [address] Zofia Gifford DO [address] [place] [address] HTN, goal below 140/90 Allergies No known active allergiesdocumented as of this encounter (statuses as of 03/02/2023) Medications Medication Sig Dispensed Refills Start Date [...] hemoglobin A1c goal of less than 8.0% ([facility]) E11.9 Use up to 4 times a [...] once daily 180 Tab 0 12/24/2020 Active Levothyroxine Sodium 25 MCG Oral Tablet (Levoxyl) Take 1 Tablet (25 mcg) by mouth in the morning. 0 12/02/2021 Active Sildenafil Citrate 50 MG Oral Tablet TAKE ONE CAPSULE BY MOUTH NEEDED DIRECTED Strength: 50 mg 10 Tablet 3 01/13/2022 Active Lisinopril 20 MG Oral Tablet (Prinivil)Indicat ions:HTN, goal below 140/90 Take 1 Tablet by mouth in the morning. 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 Aortic valve stenosis 11/01/20162018 DM type 2, goal: symptom mgmt 08/13/2016 05/23/2019 Overview: Duplicate. documented as of this encounter (statuses as of 03/02/2023) Immunizations Name Administration Dates Next Due COVID-19 [...] encounter Miscellaneous Notes * Telephone Encounter - Parisa English RPh - 03/02/2023 12:38 PM ESTRefused Prescriptions: Disp Refills Lisinopril 20 MG Oral Tablet (Prinivil) 90 Tab*0 Sig: TAKE 1 TABLET BY MOUTH IN THE MORNINGRefused By: Thad ENGLISH for Refusal: Managed by another physician- documented in this encounter Plan of Treatment Upcoming Encounters Date Type Department Care Team (Late st Contact Info) Description 04/03/2023 3:00 PM EST Office Visit Cardiology, [facility] [address] [facility] [place] [address] Melodie Payan CRNP [address] [place] [phone] Health Maintenance Due Date Last Done Comments Pneumococcal Vaccine: 65+ Years (1 - PCV) 1946 Hepatitis B (1 of 3 - Risk 3-dose series) 2002 Depression Screening 11/24/2019 11/23/2018 Diabetic Foot Exam 11/24/2019 11/23/2018, 10/05/2017 Zoster Vaccines (2 of 2) 09/24/2020 07/30/2020 Albumin/Creatinine Ratio 11/08/2020 11/09/2019 B-12 11/08/2020 11/09/2019, 04/16/2018 TSH 11/08/2020 11/09/2019, 10/15/2016 Diabetic Eye Exam 12/08/2020 12/09/2019, , 05/05/2018 HbA1c 03/14/2022 09/11/2021, 11/0 06/2020, 11/09/2019, Additional history exists GFR 09/11/2022 09/11/2021, 07/2 , 06/10/2021, Additional history exists COVID-19 Vaccine (3 [...] this encounter Medical Devices Implanted Type Area Buffer Copper Device Identifier Shelf Expiration Date Model / Serial / Lot Boyd Intuity Valve Implanted:Qty: 1 on 10/28/2016 by Richie Snyder MD [place] [facility] [place] Heart [employer] 07/11/2020 [id number] / [id number] / Description:25mm Intuity Michelle ve No Charge Item Per Denise Connolly documented as of this encounter Visit Diagnoses Diagnosis HTN, goal below 140/90 Unspecified essential hypertension documented in this encounter Advance Directives Latest Code Status on File Code Status Date Activated Date Inactivated Comments Full Code 10/28/2016 10:39 AM 11/01/2016 2:36 PM This o rder reflects the patients wishes and were consensually agreed upon. Care Teams Pipe Manufacture Supervisor Relationship Specialty Start Date End Date Damien Villasenor DO [address] [place] [id number] PCP - General Family Medicine 01/13/22 documented as of this encounter
[2023-06-12] MEDS: TERAZOSIN HCL 1 MG CAP PO SCH (20:23)
--- NOTE | 2023-06-13 06:00 | Electrocardiogram Report ---
Test Reason : Blood Pressure : / mmHG Vent. Rate : 085 BPM Atrial Rate : 300 BPM P-R Int : 000 ms QRS Dur : 148 ms QT Int : 414 ms P-R-T Axes : 000 093 018 degrees QTc Int : 492 ms Atrial flutter with variable A-V block with premature ventricular or aberrantly conducted complexes Right bundle branch block Abnormal ECG When compared with ECG of 11-JUN-2023 15:22, (unconfirmed) Vent. rate has decreased BY 44 BPM Confirmed by Noble Armstrong ([id number]) on 06/13/2023 6:00:18 AM Referred By: Damien Villasenor Confirmed By:Ernie Armstrong
--- NOTE | 2023-06-13 06:17 | Electrocardiogram Report ---
Test Reason : Blood Pressure : / mmHG Vent. Rate : 129 BPM Atrial Rate : 131 BPM P-R Int : 096 ms QRS Dur : 142 ms QT Int : 348 ms P-R-T Axes : 000 092 -06 degrees QTc Int : 509 ms Supraventricular tachycardia Right bundle branch block Abnormal ECG When compared with ECG of 16-JUN-2018 13:10, Premature ventricular complexes are no longer Present Vent. rate has increased BY 71 BPM Confirmed by Noble Armstrong ([id number]) on 06/13/2023 6:16:43 AM Referred By: Damien Villasenor Confirmed By:Ernie Armstrong
[2023-06-13 06:21] LABS: Hematocrit (blood only) 36.4 % (42.0-52.0); Hemoglobin 11.5 g/dl (14.0-18.0); Mean Corpuscular Hemoglobin 27.2 pg (25.0-34.0); Mean Corpuscular Hgb Conc 31.6 g/dL (32.0-36.0); Mean Corpuscular Volume 86.1 fL (80.0-100.0); Mean Platelet Volume 10.5 fL (9.4-12.4); Platelet Count 165 K/uL (130-400); RDW Standard Deviation 50.4 fL (36.4-46.3); Red Blood Count 4.23 M/uL (4.70-6.10); White Blood Count 6.84 K/ul (4.8-10.8)
[2023-06-13 06:38] LABS: BUN Creatinine Ratio 24.1 (10-20); Calcium 9.1 mg/dl (8.6-10.3); Creatinine Clr Calc Pharmacy 61.3 ml/min; Est GFR (African American) 74.2 ml/min; Phosphorus 4.2 mg/dl (2.5-4.9); Potassium 3.9 mmol/L (3.5-5.1)
--- NOTE | 2023-06-13 10:24 | Cardiology Progress Note ---
<Statement entered by Kady Parnell MD - 06/13/23 15:35> I have reviewed the advanced practitioner's documentation on the date of service referenced in note, and I agree with, and take responsibility for the plan of care. I spent a total of [20 ] minutes coordinating, documenting, and providing care for this patient excluding time spent in the performance of separately billed services or time spent by another provider. Date of Service June 13, 2023 Assessment & Plan (1) Acute on chronic diastolic heart failure with preserved ejection fraction: (2) Atrial fibrillation with rapid ventricular response: (3) Hypertension: (4) S/P AVR (aortic valve replacement): Plan Impression 83-year-old male who underwent surgical aortic valve replacement in 2017, normal coronaries preoperatively. Issues include hypertension, obstructive sleep apnea, newly observed atrial fibrillation March 2023. Recent issues with increased atrial fibrillation ventricular response rates culminating in presentation with acute dyspnea and decompensated diastolic heart failure Patient improving with diuretics in hospital Blood pressure elevated on presentation 06/12/23: Patient admitted after several days of worsening SOB/cough/edema. Hypoxic on arrival with chest xray revealing pulm vascular congestion. Findings suggestive of acute on chronic HFpEF Started on IV lasix. Received one dose in the ER. Start furosemide 40 mg IV today. Monitor I+O's Daily weight. monitor renal function Supplement potassium and magnesium. Consider addition of spironolactone. Consider repeat chest xray in AM Given afib RVR. 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 He has newly diagnosed wall motion abnormality on echo, with evidence of lateral infarct on nuclear stress test He has no symptoms to suggest angina. He had a normal cardiac cath in 2017 with normal arteries at that time. Medical management recommended. Continue statin, Eliquis, metoprolol losartan. He is hypertensive since admission. Monitor BP likely will trend downward with diuresis and increase in metoprolol continue lisinopril. He is s/p AVR - appropriate function of valve 06/13/23: -Telemetry reviewed. Persistent AFIB. Rates are controlled with Metoprolol Tartrate 50 mg BID -Anticoagulated with Eliquis 5 mg BID. Does is appropriate for this patient. -BP well controlled. Continue Lisinopril 40 mg daily and Terazosin 2 mg daily. -Does not appear hypervolemic on exam. Weight is down 17 lb total. Responding well to IV diuresis. -Transition to PO Torsemide 20 mg daily tomorrow. Continue Potassium 20 meq daily. -Start Spironolactone 12.5 mg daily. BMP tomorrow. 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 Recommend d/c as Thiazolidinediones are contraindicated in patients with heart failure. He would be a good candidate for Jardiance. -Will need CHF hospital discharge follow up with [facility] within 3-5 days. BMP prior to visit. -Cardiology will sign off at this time. Case discussed with Dr. Parnell I spent a total of 35 minutes on the date of service in preparation, delivery, and documentation of the care provided to this patient, excluding any time spent in the performance of separately billed services. XAVIER Briceno Department of Cardiology, [facility] This chart was completed in part utilizing Speech Voice Recognition Software. Grammatical errors, random word insertions, pronoun errors, and incomplete sentences are an occasional consequence of this system due to software limitations, ambient noise, and hardware issues. Any formal questions or concerns about the content, text, or information contained within the body of this dictation should be directly addressed to the provider for clarification. Admission and Anticipated Discharge Date Admission Date: June 11, 2023 Supervising Physician Co-Signing Physician Notes 83-year-old male who underwent surgical aortic valve replacement in 2016, normal coronaries preoperatively. Issues include hypertension, obstructive sleep apnea, newly observed atrial fibrillation March 2023. Recent issues with increased atrial fibrillation ventricular response rates culminating in presentation with acute dyspnea and decompensated diastolic heart failure Patient improving with diuretics in hospital he is almost euvolemic can start PO diuretics tomorrow started on Aldactone will need to monitor potassium and discontinue supplements if K 4 or more nuc stress as out patient no evidence of ischemia prior infarct, echo was normal EF , normal bioprosthetic aortic valve fucntion I spent a total of 20 minutes additional on the date of service in preparation, delivery, and documentation of the care provided to this patient. Subjective No acute events noted overnight. He is feeling well and does not offer any cardiovascular concerns. Slept through the night with CPAP. Review of Systems Review of Systems: All systems reviewed & are unremarkable except as noted in HPI & below Physical Exam Constitutional: WD/WN, vitals as above no acute distress Respiratory: no labored breathing and no cough Auscultation: + rales, + rhonchi and + wheezes Cardiovascular: Rate/Rhythm: + irregularly irregular Heart Sounds: + murmur (II/ systolic murmur) Vessels: no JVD Extremities: no edema (trace ankle/pretibial edema) Gastrointestinal (Abdomen): normal bowel sounds, soft, nontender, no hepatosplenomegaly (Round) Musculoskeletal: no cyanosis or clubbing, extremities motor strength 5/5 Neurologic: PERRL, EOMI, accommodation nl, no face palsy, no dysarthria Psychiatric: A+Ox3, euthymic affect Results & Data Vital Signs (Past 12 Hours) Vital Signs Temp Pulse Pulse Resp BP BP Pulse Ox 06/13/23 08:21 06/13/23 07:19 36.3 C L 66 19 119/73 90 06/13/23 03:10 74 19 92 06/13/23 02:33 37.0 C 61 18 136/76 96 06/12/23 23:30 90 126/83 06/12/23 23:13 36.5 C 64 18 88/53 L 90 06/12/23 22:30 64 24 91 O2 Del Method O2 Flow Rate 06/13/23 08:21 Room Air 06/13/23 07:19 Room Air 06/13/23 03:10 2 06/13/23 02:33 CPAP 2 06/12/23 23:30 06/12/23 23:13 Nasal Cannula 2 06/12/23 22:30 2 Laboratory Results CBC 06/13/23 Range/Units 06:07 WBC 6.84 (4.8-10.8) K/ul RBC 4.23 L (4.70-6.10) M/uL Hgb 11.5 L (14.0-18.0) g/dl Hct 36.4 L (42.0-52.0) % Plt Count 165 (130-400) K/uL Comprehensive Metabolic Panel 06/13/23 Range/Units 06:07 Sodium 136 (136-145) mmol/L Potassium 3.9 (3.5-5.1) mmol/L Chloride 98 (98-107) mmol/L Carbon Dioxide 33 H (21-32) mmol/L BUN 26 H (6-23) mg/dl Creatinine 1.08 (0.6-1.4) mg/dl Glucose 176 H (70-99(Fasting)) mg/dl Calcium 9.1 (8.6-10.3) mg/dl Intake and Output 06/12/23 06/13/23 06/13/23 22:59 06:59 14:59 Output Total 1650 / 2550 150 / 2550 Balance -1650 / -1663.333 -150 / -1663.333 Output: Urine 1650 / 2550 150 / 2550 Other: Weight 92.4 kg Weight Measurement Method Built in [facility] Diagnostic Findings Telemetry reviewed 06/13/23: Persistent atrial fibrillation 70-90s EKG reviewed from admission 06/11/23: Probable atrial flutter with RVR RBBB Repeat ekg from 06/12/23: Atrial flutter with variable AV block with PVC's - rates improved in the 80's Echocardiogram 06/12/23 Afib RVR during echo Moderate LVH Moderate inferior, posterior, and lateral wall motion abnormality with hypokinesis EF 55-60% Post TAVR with normal gradients No pulm hypertension Chest xray reviewed on admission: pulm vascular congestion Outside data reviewed: Nuclear stress test report reviewed dated 06/09/2023: Interpretation Summary Abnormal Lexiscan nuclear myocardial perfusion imaging study demonstrating lateral infarct without jesse-infarct ischemia. Abnormal gated SPECT imaging demonstrating hypokinesis of the base and mid lateral wall. Otherwise, normal wall motion. The LV ejection fraction is calculated at 48%. Outpatient echocardiogram report reviewed dated 06/09/2023: Interpretation Summary The rhythm during the transthoracic echo examination was atrial fibrillation with rapid ventricular response. The qualitative LV ejection fraction is 55-59% (normal). The LV wall thickness is mildly increased (concentric). There is a moderate sized inferior, posterior, and lateral wall motion abnormality with hypokinesis of the segments. The left atrium is moderately enlarged (42-48 ml/m^2). There is an aortic valve bioprosthetic present. Aortic valve prosthesis stenosis is absent. Significant aortic valve prosthesis regurgitation is absent. Mild mitral regurgitation is present. Mild tricuspid regurgitation is present. There is no evidence of pulmonary hypertension. Compared to last available study changes are noted as follows: Posterior and lateral wall motion abnormality now presen ZIO monitor report reviewed dated March 2023: Duration: 10 days , 19 hours 4 Ventricular Tachycardia runs occurred, the run with the fastest interval lasting 8.9 secs with a max rate of 190 bpm (avg 165 bpm); the run with the fastest interval was also the longest. Bundle Branch Block/IVCD was present. Atrial Fibrillation occurred continuously (100% burden), ranging from 50-142 bpm (avg of 92 bpm). Isolated VEs were frequent (6.5%, 27960), VE Couplets were rare (<1.0%, 3375), and VE Triplets were rare (<1.0%, 188). Ventricular Bigeminy and Trigeminy were present. No patient triggered event or diary events were submitted. Frequent premature ventricular contractions were observed, PVC burden 6.5%.
[2023-06-13] MEDS: SPIRONOLACTONE 12.5 MG TAB PO SCH (11:24)
--- NOTE | 2023-06-13 14:34 | Hospitalist Progress Note ---
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 He is being managed for the following: Acute on chronic heart failure with preserved ejection fraction Hypoxia: Likely secondary to above, no respiratory distress noted in ED examination and H&P examination. Patient required 2 L oxygen at presentation. Patient coming in with progressive shortness of breath, BLE swelling. Patient denies febrile illness, admitting BNP 199, elevated troponin in 20s. 06/08 echo with EF of 55 to 59%, grade 2 diastolic dysfunction. Admitting CXR with pulmonary vascular congestion Echo this admission with EF of 55 to 60%; moderate concentric LVH; hypokinesis of inferior, posterior and lateral wall segments noted. Patient started on IV diuresis with Lasix, cardiology on board, managing diuresis - to po torsemide (and kcl 20 ) 20 mg dialy from katerin. Add aldactone 12.5 mg daily from katerin. Strict I's and O's, daily weight, heart healthy diet, low-sodium diet. Monitor replete electrolytes, continue telemetry monitoring. Will need to discontinue pioglitazone, discussed with the patient and his . They agree. f/u cardio in 3-5 days of dc. Atrial fibrillation with RVR: Metoprolol succinate 50 Mg increased to twice daily dosing. Continue home Eliquis. Continue telemetry monitoring. Rate better. Patient with no chest pain. Other chronic medical conditions: Continue with/resume home meds as and when able. S/P AVR (aortic valve replacement): [place] [facility] Diabetes mellitus, type 2: A1c this admission 7.7. Takes metformin and pioglitazone at home. Had side effect with Januvia in the past. Patient and his are aware that pioglitazone cannot be continued given heart failure. They don't want Jardiance at the time (encouraged them to consider this). They would like to be put on glimepiride and plan to further follow-up with outpatient provider. Glimepiride on discharge. DC pioglitazone. Hypertension: Continue home lisinopril, patient's cardiac medication being optimized [see above]. Sleep apnea: Continue CPAP DVT prophylaxis: Patient on Eliquis CODE STATUS: Full code PCP: Jacklyn Dispo: Admitted to PCU Admission and Anticipated Discharge Date Admission Date: June 11, 2023 Subjective Patient was seen and examined at bedside. Patient was lying on bed, on room air, NAD. Patient's at bedside was also updated on plan of care. Patient denies any headache/dizziness/chest pain/increased shortness of breath/abdominal pain. Patient reports eating okay and moving bowels okay. Physical Exam Physical Exam: GENERAL: Alert and oriented x3. NAD, on RA HEENT: No pallor, no icterus. Pupils equal, round and reactive to light. Oral mucosa moist. NECK: No JVD, no neck masses. HEART: S1 and S2 heard. irregular rate and rhythm. No murmur, no gallop. RESPIRATORY SYSTEM: Normal AP diameter. No accessory muscle use. No wheezing, bl crackles improving. ABDOMEN: Soft, bowel sounds present, nontender, no distention. CENTRAL NERVOUS SYSTEM: No facial droop. Speech is clear. Obeys simple commands. Moves extremities. EXTREMITIES: 1+ ble edema, no erythema seen. Results & Data Results & Data Vital Signs (Past 12 Hours) Vital Signs Temp Pulse Pulse Resp BP BP Pulse Ox 06/13/23 10:51 36.5 C 82 19 123/71 90 06/13/23 08:21 06/13/23 07:19 36.3 C L 66 19 119/73 90 06/13/23 03:10 74 19 92 06/13/23 02:33 37.0 C 61 18 136/76 96 O2 Del Method O2 Flow Rate 06/13/23 10:51 Room Air 06/13/23 08:21 Room Air 06/13/23 07:19 Room Air 06/13/23 03:10 2 06/13/23 02:33 CPAP 2
[2023-06-14 06:30] LABS: BUN Creatinine Ratio 31.3 (10-20); Calcium 9.3 mg/dl (8.6-10.3); Est GFR (African American) 85.6 ml/min; Est GFR (Non-African American) 73.8 ml/min; Magnesium 1.9 mg/dl (1.7-2.4)
[2023-06-14] MEDS: TORSEMIDE 20 MG TAB PO SCH (08:50)
--- NOTE | 2023-06-14 10:53 | Cardiology Progress Note ---
Date of Service June 14, 2023 Assessment & Plan (1) Acute on chronic diastolic heart failure with preserved ejection fraction: (2) Atrial fibrillation with rapid ventricular response: (3) Hypertension: (4) S/P AVR (aortic valve replacement): Plan Impression 83-year-old male who underwent surgical aortic valve replacement in 2016, normal coronaries preoperatively. Issues include hypertension, obstructive sleep apnea, newly observed atrial fibrillation March 2023. Recent issues with increased atrial fibrillation ventricular response rates culminating in presentation with acute dyspnea and decompensated diastolic heart failure Patient improving with diuretics in hospital Blood pressure elevated on presentation 06/12/23: Patient admitted after several days of worsening SOB/cough/edema. Hypoxic on arrival with chest xray revealing pulm vascular congestion. Findings suggestive of acute on chronic HFpEF Started on IV lasix. Received one dose in the ER. Start furosemide 40 mg IV today. Monitor I+O's Daily weight. monitor renal function Supplement potassium and magnesium. Consider addition of spironolactone. Consider repeat chest xray in AM Given afib RVR. 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 He has newly diagnosed wall motion abnormality on echo, with evidence of lateral infarct on nuclear stress test He has no symptoms to suggest angina. He had a normal cardiac cath in 2017 with normal arteries at that time. Medical management recommended. Continue statin, Eliquis, metoprolol losartan. He is hypertensive since admission. Monitor BP likely will trend downward with diuresis and increase in metoprolol continue lisinopril. He is s/p AVR - appropriate function of valve 06/13/23: -Telemetry reviewed. Persistent AFIB. Rates are controlled with Metoprolol Tartrate 50 mg BID -Anticoagulated with Eliquis 5 mg BID. Does is appropriate for this patient. -BP well controlled. Continue Lisinopril 40 mg daily and Terazosin 2 mg daily. -Does not appear hypervolemic on exam. Weight is down 17 lb total. Responding well to IV diuresis. -Transition to PO Torsemide 20 mg daily tomorrow. Continue Potassium 20 meq daily. -Start Spironolactone 12.5 mg daily. BMP tomorrow. 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 Recommend d/c as Thiazolidinediones are contraindicated in patients with heart failure. He would be a good candidate for Jardiance. -Will need CHF hospital discharge follow up with [facility] within 3-5 days. BMP prior to visit. -Cardiology will sign off at this time. 06/14/2023: -Telemetry reviewed. Persistent AFIB. Rates vary 70s-1 teens -Will increase Metoprolol Succinate to 75 mg BID -Continue Eliquis 5 mg BID. -Continue Torsemide to 20 mg daily. Continue Potassium 20 meq daily. D/C K supplement in K >4.0 [] -Continue Spironolactone 12.5 mg daily. -BP controlled. Continue Lisinopril 40 mg daily. -Ambulation encouraged. -Incentive spirometry and flutter valve ordered. -Compliant with CPAP -Likely can be discharged tomorrow from a cardiac standpoint. -Please document accurate I&Os -Monitor and replace electrolytes as needed. (Recommend K > 4.0 & Mag > 2.0) -Please record daily weights -2L fluid restriction -2 gm sodium restriction -Please apply compression stockings or batool wraps first thing in the morning and remove at night. Repeat daily. -Encourage patient to elevate lower extremities throughout the day. Case discussed with Dr. Parnell I spent a total of 35 minutes on the date of service in preparation, delivery, and documentation of the care provided to this patient, excluding any time spent in the performance of separately billed services. XAVIER Briceno Department of Cardiology, [facility] This chart was completed in part utilizing Speech Voice Recognition Software. Grammatical errors, random word insertions, pronoun errors, and incomplete sentences are an occasional consequence of this system due to software limitations, ambient noise, and hardware issues. Any formal questions or concerns about the content, text, or information contained within the body of this dictation should be directly addressed to the provider for clarification. Admission and Anticipated Discharge Date Admission Date: June 11, 2023 Supervising Physician Co-Signing Physician Notes 83-year-old male who underwent surgical aortic valve replacement in 2017, normal coronaries preoperatively. hypertension, obstructive sleep apnea, newly observed atrial fibrillation March 2023. recent nuclear stress test and echo as outpatient - no ischemia on stress test admitted with heart failure and uncontrolled heart rates . Acute on chronic Diastolic heart failure Atrial fibrillation Bioprosthetic Aortic valve HTN has diuresed about -4 liters symptosm have improved transitioned to po Torsemide 20 , aldactone will need follow up labs for potassium heart rates better controlled on toprol xl 75 BID, on eliquis I spent a total of 20 minutes additional on the date of service in preparation, delivery, and documentation of the care provided to this patient. Subjective Patient is out of bed to chair. He is eager for discharge. is at bedside. No acute events noted overnight. Review of Systems Review of Systems: All systems reviewed & are unremarkable except as noted in HPI & below Physical Exam Constitutional: WD/WN, vitals as above no acute distress Respiratory: no labored breathing and no cough Auscultation: no rales, no rhonchi and no wheezes Cardiovascular: Rate/Rhythm: + irregularly irregular Heart Sounds: + murmur (II/ systolic murmur) Vessels: no JVD Extremities: no edema (trace ankle/pretibial edema) Gastrointestinal (Abdomen): normal bowel sounds, soft, nontender, no hepatospl enomegaly (Round) Musculoskeletal: no cyanosis or clubbing, extremities motor strength 5/5 Neurologic: PERRL, EOMI, accommodation nl, no face palsy, no dysarthria Psychiatric: A+Ox3, euthymic affect Results & Data Vital Signs (Past 12 Hours) Vital Signs Temp Pulse Pulse Resp BP Pulse Ox O2 Del Method 06/14/23 07:49 Room Air 06/14/23 07:29 36.7 C 67 19 121/73 93 Room Air 06/14/23 07:22 67 06/14/23 03:51 37.0 C 100 H 18 137/87 99 CPAP 06/14/23 02:04 13 06/13/23 23:18 26 H 93 06/13/23 23:06 36.6 C 72 18 116/72 90 Nasal Cannula O2 Flow Rate 06/14/23 07:49 06/14/23 07:29 06/14/23 07:22 06/14/23 03:51 2 06/14/23 02:04 2 06/13/23 23:18 2 06/13/23 23:06 2 Laboratory Results Comprehensive Metabolic Panel 06/14/23 Range/Units 05:54 Sodium 135 L (136-145) mmol/L Potassium 4.0 (3.5-5.1) mmol/L Chloride 98 (98-107) mmol/L Carbon Dioxide 31 (21-32) mmol/L BUN 30 H (6-23) mg/dl Creatinine 0.96 (0.6-1.4) mg/dl Glucose 183 H (70-99(Fasting)) mg/dl Calcium 9.3 (8.6-10.3) mg/dl Intake and Output 06/13/23 06/14/23 06/14/23 22:59 06:59 14:59 Intake Total 240 / 720 Output Total 200 / 1400 500 / 1400 Balance 40 / -680 -500 / -680 Intake: Oral 240 / 720 Output: Urine 200 / 1400 500 / 1400 Other: Weight 92.7 kg Diagnostic Findings Telemetry reviewed 06/14/23: Persistent atrial fibrillation 70-1 teens. EKG reviewed from admission 06/11/23: Probable atrial flutter with RVR RBBB Repeat ekg from 06/12/23: Atrial flutter with variable AV block with PVC's - rates improved in the 80's Echocardiogram 06/12/23 Afib RVR during echo Moderate LVH Moderate inferior, posterior, and lateral wall motion abnormality with hypokinesis EF 55-60% Post TAVR with normal gradients No pulm hypertension Chest xray reviewed on admission: pulm vascular congestion Outside data reviewed: Nuclear stress test report reviewed dated 06/09/2023: Interpretation Summary Abnormal Lexiscan nuclear myocardial perfusion imaging study demonstrating lateral infarct without jesse-infarct ischemia. Abnormal gated SPECT imaging demonstrating hypokinesis of the base and mid lateral wall. Otherwise, normal wall motion. The LV ejection fraction is calculated at 48%. Outpatient echocardiogram report reviewed dated 06/09/2023: Interpretation Summary The rhythm during the transthoracic echo examination was atrial fibrillation with rapid ventricular response. The qualitative LV ejection fraction is 55-59% (normal). The LV wall thickness is mildly increased (concentric). There is a moderate sized inferior, posterior, and lateral wall motion abnormality with hypokinesis of the segments. The left atrium is moderately enlarged (42-48 ml/m^2). There is an aortic valve bioprosthetic present. Aortic valve prosthesis stenosis is absent. Significant aortic valve prosthesis regurgitation is absent. Mild mitral regurgitation is present. Mild tricuspid regurgitation is present. There is no evidence of pulmonary hypertension. Compared to last available study changes are noted as follows: Posterior and lateral wall motion abnormality now presen ZIO monitor report reviewed dated March 2023: Duration: 10 days , 19 hours 4 Ventricular Tachycardia runs occurred, the run with the fastest interval lasting 8.9 secs with a max rate of 190 bpm (avg 165 bpm); the run with the fastest interval was also the longest. Bundle Branch Block/IVCD was present. Atrial Fibrillation occurred continuously (100% burden), ranging from 50-142 bpm (avg of 92 bpm). Isolated VEs were frequent (6.5%, 00616), VE Couplets were rare (<1.0%, 3375), and VE Triplets were rare (<1.0%, 188). Ventricular Bigeminy and Trigeminy were present. No patient triggered event or diary events were submitted. Frequent premature ventricular contractions were observed, PVC burden 6.5%.
--- NOTE | 2023-06-14 16:10 | Hospitalist Progress Note ---
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 He is being managed for the following: Acute on chronic heart failure with preserved ejection fraction Hypoxia: Likely secondary to above, no respiratory distress noted in ED examination and H&P examination. Patient required 2 L oxygen at presentation. Patient coming in with progressive shortness of breath, BLE swelling. Patient denies febrile illness, admitting BNP 199, elevated troponin in 20s. 06/08 echo with EF of 55 to 59%, grade 2 diastolic dysfunction. Admitting CXR with pulmonary vascular congestion Echo this admission with EF of 55 to 60%; moderate concentric LVH; hypokinesis of inferior, posterior and lateral wall segments noted. Patient started on IV diuresis with Lasix, cardiology on board, managing diuresis - to po torsemide (and kcl 20 ) 20 mg dialy from. c/w aldactone 12.5 mg daily. Strict I's and O's, daily weight, heart healthy diet, low-sodium diet. Monitor replete electrolytes, continue telemetry monitoring. Will need to discontinue pioglitazone, discussed with the patient and his . They agree. f/u cardio in 3-5 days of dc. Atrial fibrillation with RVR: Metoprolol succinate 50 Mg increased to twice daily dosing. Continue home Eliquis. Continue telemetry monitoring. Rate better. Patient with no chest pain. Other chronic medical conditions: Continue with/resume home meds as and when able. S/P AVR (aortic valve replacement): [place] [facility] [place] mellitus, type 2: A1c this admission 7.7. Takes metformin and pioglitazone at home. Had side effect with Januvia in the past. Patient and his are aware that pioglitazone cannot be continued given heart failure. They don't want Jardiance at the time (encouraged them to consider this). They would like to be put on glimepiride and plan to further follow-up with outpatient provider. Glimepiride on discharge. DC pioglitazone. Hypertension: Continue home lisinopril, patient's cardiac medication being optimized [see above]. Sleep apnea: Continue CPAP DVT prophylaxis: Patient on Eliquis CODE STATUS: Full code PCP: Jacklyn Dispo: Admitted to PCU , likely dc katerin Admission and Anticipated Discharge Date Admission Date: June 11, 2023 Subjective Patient was seen and examined at bedside. Patient was lying on bed, on room air, NAD. Patient's at bedside was also updated on plan of care. Patient denies any headache/dizziness/chest pain/increased shortness of breath/abdominal pain. Patient reports eating okay and moving bowels okay. Pt encouraged to ambulate. Physical Exam Physical Exam: GENERAL: Alert and oriented x3. NAD, on RA HEENT: No pallor, no icterus. Pupils equal, round and reactive to light. Oral mucosa moist. NECK: No JVD, no neck masses. HEART: S1 and S2 heard. irregular rate and rhythm. No murmur, no gallop. RESPIRATORY SYSTEM: Normal AP diameter. No accessory muscle use. No wheezing, bl crackles improving. ABDOMEN: Soft, bowel sounds present, nontender, no distention. CENTRAL NERVOUS SYSTEM: No facial droop. Speech is clear. Obeys simple commands. Moves extremities. EXTREMITIES: trace/1+ ble edema, no erythema seen. Results & Data Results & Data Vital Signs (Past 12 Hours) Vital Signs Temp Pulse Pulse Resp BP Pulse Ox O2 Del Method 06/14/23 10:55 36.3 C L 81 21 107/71 90 Room Air 06/14/23 07:49 Room Air 06/14/23 07:29 36.7 C 67 19 121/73 93 Room Air 06/14/23 07:22 67
[2023-06-14] MEDS: METOPROLOL SUCC 25MG EXT REL TAB PO SCH (20:46)
[2023-06-15 07:08] LABS: BUN Creatinine Ratio 30.5 (10-20); Calcium 9.3 mg/dl (8.6-10.3); Creatinine Clr Calc Pharmacy 63.1 ml/min; Est GFR (African American) 76.8 ml/min; Est GFR (Non-African American) 66.3 ml/min; Magnesium 1.9 mg/dl (1.7-2.4)
--- NOTE | 2023-06-15 12:21 | Discharge Summary ---
Date of Service June 15, 2023 Admission HPI Per Admitting Provider This is an 83yo M with PMH of atrial fibrillation diagnosed 2 months ago, DM II, s/p AV replacement, sleep apnea on CPAP and other medical problems listed below who presents with worsening SOB and low oxygen levels over the past few days. Patient was diagnosed with A fib 2 months ago. Was seen in cardiology clinic on 06/08 for follow up for A fib and as well as HTN (lisinopril was increased in past month by PCP from 20 to 40mg). Underwent echo on 06/08 showing normal EF 55- 59%, grade II diastolic dysfunction, AV prosthesis visualized. Was transitioned from Lopressor 25mg BID to Toprol 50mg this week and took first dose of Toprol this morning. Patient has noted progressive lower leg edema for a few weeks but developed cough and SOB in the past few days and noted he was having low oxygen levels at home this morning, brought him to the ED. Endorses progressively worsening swelling in lower extremities over the past few weeks. Also with SOB while laying down flat. Has had elevated BP and lisinopril dose w as increased last week as well as adjustment from Lopressor to Toprol earlier this week. Endorses fatigue, productive cough with white sputum. No fever, chills, CP, palpitations, N/V, abd pain, dysuria, diarrhea or constipation. Admission Exam Per Admitting Provider GENERAL APPEARANCE: AxOx4, generally well-appearing M, no acute distress. on 2 L NC HEENT: NC, AT. MMM. EOMI, clear conjunctiva, oropharynx clear. NECK: Supple without lymphadenopathy. No stiffness or restricted ROM. HEART: Normal rate and regular rhythm, normal S1/S1, no m/r/g LUNGS: diminshed breath sounds, limited 2/2 cough ABDOMEN: Soft, nontender, nondistended with good bowel sounds heard. BACK: No CVAT, no obvious deformity. EXTREMITIES: Without cyanosis, clubbing; bilateral lower extremity edema 2+ up to knees NEUROLOGICAL: Grossly nonfocal. Alert and oriented, moving all 4 extremities. CN not formally tested but appear grossly intact. Skin: Warm and dry without any rash. Principal Diagnosis Acute on chronic heart failure with preserved ejection fraction Hypoxia Atrial fibrillation with RVR Discharge Exam GENERAL: Alert and oriented x3. NAD, on RA HEENT: No pallor, no icterus. Pupils equal, round and reactive to light. Oral mucosa moist. NECK: No JVD, no neck masses. HEART: S1 and S2 heard. irregular rate and rhythm. No murmur, no gallop. RESPIRATORY SYSTEM: Normal AP diameter. No accessory muscle use. No wheezing, bl crackles improving. ABDOMEN: Soft, bowel sounds present, nontender, no distention. CENTRAL NERVOUS SYSTEM: No facial droop. Speech is clear. Obeys simple commands. Moves extremities. EXTREMITIES: trace ble edema, no erythema seen. 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 He was managed for the following: Acute on chronic heart failure with preserved ejection fraction Hypoxia: Likely secondary to above, no respiratory distress noted in ED examination and H&P examination. Patient required 2 L oxygen at presentation. Patient coming in with progressive shortness of breath, BLE swelling. Patient denies febrile illness, admitting BNP 199, elevated troponin in 20s. 06/08 echo with EF of 55 to 59%, grade 2 diastolic dysfunction. Admitting CXR with pulmonary vascular congestion Echo this admission with EF of 55 to 60%; moderate concentric LVH; hypokinesis of inferior, posterior and lateral wall segments noted. Cardiology evaluated, GDMT titrated. Patient encouraged to maintain heart healthy/low-sodium diet. Also encouraged to maintain fluid restriction of 1500 to 2000 mL a day. Patient encouraged to ambulate. Patient made aware to follow-up with cardiology in a week time upon discharge. Pioglitazone has been discontinued, upon patient and his 's request, patient has been started on glimepiride. They have been encouraged to consider Jardiance in future. They declined Jardiance at this moment. Atrial fibrillation with RVR: Metoprolol succinate 50 Mg increased to twice daily dosing at 75 Mg. Continue home Eliquis. Rate better. Patient with no chest pain. Other chronic medical conditions: Continue with/resume home meds as and when able. S/P AVR (aortic valve replacement): S/p AV replacement in 2017 at [facility] [place] Diabetes mellitus, type 2: A1c this admission 7.7. Takes metformin and pioglitazone at home. Had side effect with Januvia in the past. Patient and his are aware that pioglitazone cannot be continued given heart failure. They don't want Jardiance at the time (encouraged them to consider this). They would like to be put on glimepiride and plan to further follow-up with outpatient provider. Glimepiride on discharge. DC pioglitazone. Hypertension: Continue home lisinopril, patient's cardiac medication being optimized [see above]. Sleep apnea: Continue CPAP DVT prophylaxis: Patient on Eliquis CODE STATUS: Full code PCP: Jacklyn Patient is being discharged to home with following instruction at the point of discharge: Follow-up with your primary care physician within a week time and likely you will need labs CBC/CMP/magnesium/phosphorus. For your acute worsening of heart failure and atrial fibrillation with rapid ventricular response, you have been evaluated by cardiology. Your cardiac medications has been optimized. Take them as prescribed. Follow-up with cardiology in 3 to 5 days time of discharge. Your pioglitazone has been discontinued. As requested at the bedside you have been started on glimepiride. Please follow-up with the diabetic clinic or PCP office for long-term monitoring of your diabetes. Maintain heart healthy/low-sodium diet. Encourage ambulation. Fluid restriction of 1.5 to 2 L a day. Take your medications as prescribed. Please make sure that you are able to get your medications today by calling your pharmacy before you leave the hospital so that your treatment continuity is not broken. Home Health Attestation I certify that this patient is under my care and that I, or a physicians logging assistant working with me, had a face to-face encounter that meets the home health [id number] encounter requirements with this patient. The encounter with the patient was in whole, or in part, for the following medical condition, which is the primary reason for home health care (list medical condition): I certify that, based on my findings, the following services are medically necessary home health services: My clinical findings support the need for the above services because: Further, I certify that my clinical findings support that this patient is homebound (i.e. absences from home require considerable and taxing effort and are for medical reasons or [employer] services or infrequently or of short duration when for other reasons) because: Certification for Home Health Services: Based on the above findings, I certify that this patient is confined to the home and needs intermittent senior care care, physical therapy and/or speech therapy or continues to need occupational therapy. The patient is under my care, and I have initiated the establishment of the plan of care. This patient will be followed by a physician who will periodically review the plan of care. Total Time Total Time Spent Total Time Spent (In Minutes): 45 Discharge Plan Discharge Items Patient Disposition: Home - Self-Care Reason For Visit: A FIB, CHF, HYPOXIC RESP FAILURE Discharge Diagnosis: Acute on chronic heart failure with preserved ejection fraction Hypoxia Atrial fibrillation with RVR Condition on Discharge: Fair Activity: Resume your previous activity Non-emergency contact: Primary Care Provider Call non-emergency contact if: you have any medication questions Follow-up/Referrals: Damien Villasenor DO [Primary Care Provider] - Diet: Carb Consistent or DM2, Heart Healthy and Low Sodium (2gm) Addtl Attending Provider Instructions: Follow-up with your primary care physician within a week time and likely you will need labs CBC/CMP/magnesium/phosphorus. For your acute worsening of heart failure and atrial fibrillation with rapid ventricular response, you have been evaluated by cardiology. Your cardiac medications has been optimized. Take them as prescribed. Follow-up with cardiology in 3 to 5 days time of discharge. Your pioglitazone has been discontinued. As requested at the bedside you have been started on glimepiride. Please follow-up with the diabetic clinic or PCP office for long-term monitoring of your diabetes. Maintain heart healthy/low-sodium diet. Encourage ambulation. Fluid restriction of 1.5 to 2 L a day. Take your medications as prescribed. Please make sure that you are able to get your medications today by calling your pharmacy before you leave the hospital so that your treatment continuity is not broken. Pending Studies at Discharge: No Stand-Alone Forms: My [employer], Smoking Cessation Medications and DC Order Prescriptions: New metoprolol succinate 25 mg Tablet Extended Release 24 Hr 75 mg PO BID Qty: 180 0RF spironolactone 25 mg Tablet 12.5 mg PO DAILY Qty: 15 0RF terazosin 1 mg Capsule 2 mg PO HS 30 Days Qty: 60 0RF potassium chloride 20 mEq Tablet,Er Particles/Crystals 20 meq PO QAM Qty: 30 0RF torsemide 20 mg Tablet 20 mg PO QAM Qty: 30 0RF glimepiride 2 mg tablet 2 mg PO DAILY Qty: 30 0RF Continued multivitamin Tablet 1 tab PO DAILY metformin 500 mg Tablet 500 mg PO BID lisinopril 20 mg Tablet 40 mg PO QAM aspirin [Jeny Low Dose Aspirin] 81 mg Tablet,Delayed Release (Dr/Ec) 81 mg PO QAM cyanocobalamin (vitamin B-12) [Vitamin B-12] 1,000 mcg Tablet 1,000 mcg PO DAILY levothyroxine 50 mcg tablet 50 mcg PO DAILY rosuvastatin 10 mg tablet 10 mg PO HS Eliquis 5 mg tablet 5 mg PO BID PreserVision AREDS-2 250-90-40-1 mg Capsule 1 tab PO AMHS Discontinued ibuprofen [Advil] 200 mg Tablet 400 mg PO BID PRN (Reason: Pain) pioglitazone 15 mg tablet 15 mg PO QAM hydrochlorothiazide 25 mg tablet 25 mg PO DAILY metoprolol succinate 50 mg tablet extended release 24 hr 50 mg PO DAILY Discharge Orders: Discharge Order- CHF (Routine); Ordered 06/15/23 Ordered By: Michelle Terrell/Other Patient Handouts: Managing Type 2 Diabetes Admission Data Admit Date/Time: 06/11/23 17:43 Attending Provider: Michelle Roper Admit Provider: Genna Bhatt Primary Care Provider: Damien Villasenor Other Providers: Alexandr Hair; Genna Bhatt
== END 2023-06-15 14:09 | disposition home or self-care (01) | DRG 291 ==
LOC: ED 14:42 → 4W 17:43 → SUATTDRO 17:43 → 4W 21:45